=== PATIENT | female | born 1935 | race Caucasian/White ===

== ENCOUNTER → 2017-07-15 | Outpatient (CLI) | payer MEDICARE ==
[2016-05-06 01:35] VITALS: BP 141/71
[~2017-07-15] MED LIST: FLUO10CA7 PO; LEVO250T7 PO; OMEP10CA3 PO; ONDA4TAB10 PO; PRAV10TA2 PO; PROC5TAB PO; VALS40TA2 PO
--- NOTE | 2017-07-15 15:10 | KCIC ---
Examination: MRI of the left hip without contrast HISTORY: History of worsening left hip pain, recent fall COMPARISON: None available TECHNIQUE: Multiplanar, multisequence MR imaging of the left hip was performed without contrast FINDINGS: The left femoral head is within the acetabula. Examination limited due to motion artifact as patient could not lie still. There is no obvious acute fracture visualized The attachment of the hamstring tendons to the ischial tuberosity grossly appears intact. The attachment of the iliopsoas tendon to the lesser trochanter grossly appears intact. The attachment of the rectus femoris tendon to the anteroinferior iliac spine grossly appears intact. There is mild increased signal identified at the attachment of the gluteus minimus tendon to the greater trochanter likely tendinosis or mild partial tearing. Small amount of fluid identified overlying the gluteus minimus tendon could be trochanter bursal fluid. Moderate joint space loss identified in the left hip joint. The evaluation of the labrum is limited. Few uterine fibroids identified with the largest measuring 3.2 cm. IMPRESSION: 1. No acute osseous findings. 2. Mild increased T2 signal identified about the distal aspect of the gluteus minimus tendon at its attachment to the greater trochanter could be tendinosis or mild partial tearing. Small amount of fluid identified overlying the gluteus minimus tendon could be trochanteric bursitis. 3. Moderate degenerative changes left hip joint. Electronically signed by: Jono Muniz MD (07/15/2017 3:07 PM) [id number]
--- NOTE | 2017-07-15 15:14 | KCIC ---
MRI of the lumbar spine without contrast 07/15/2017 CLINICAL HISTORY: Low back pain with bilateral leg weakness. TECHNIQUE: Unenhanced T1-weighted and T2-weighted sagittal and axial and inversion recovery sagittal images of the lumbar spine were obtained. FINDINGS: No previous imaging studies are available for comparison. 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 Degenerative signal changes and loss of height are seen involving all of the disks of the lumbar spine. Degenerative signal changes are seen within the marrow surrounding these discs. The conus medullaris is normal in position and signal characteristics. At the L1-2 disc space there is a mild generalized disc bulge. Degenerative changes are seen involving the facet joints bilaterally. There is mild to moderate ligamentum flavum hypertrophy bilaterally. These findings when combined result in mild central spinal canal stenosis. No neural foraminal stenosis is seen. At the L2-3 disc space there is a mild generalized disc bulge. This is eccentric to the right. Degenerative changes are seen involving the facet joints bilaterally. There is moderate ligamentum flavum hypertrophy bilaterally. There is prominence of the posterior epidural fat. These findings when combined do not result in significant central spinal canal or neural foraminal stenosis. At the L3-4 disc space there is a moderate generalized disc bulge. Degenerative changes are seen involving the facet joints bilaterally. There is moderate ligamentum flavum hypertrophy bilaterally. These findings when combined result in moderate to severe right greater than left central spinal canal stenosis. Mild right neural foraminal stenosis is seen. The left neural foramen is patent. At the L4-5 disc space there is a moderate generalized disc bulge. Degenerative changes are seen involving the facet joints bilaterally. There is moderate ligamentum flavum hypertrophy bilaterally. These findings when combined result in severe central spinal canal stenosis. No neural foraminal stenosis is seen. At the L5-S1 disc space there is a mild generalized disc bulge. Degenerative changes are seen involving the facet joints bilaterally. There is mild ligamentum flavum hypertrophy bilaterally. These findings do not result in significant central spinal canal or neural foraminal stenosis. IMPRESSION: The changes of degenerative disc disease are seen involving the lumbar spine. These findings result in mild central spinal canal stenosis at L1-2, moderate to severe right greater than left central spinal canal stenosis at L3-4, and severe central spinal canal stenosis at L4-5. Mild right neural foraminal stenosis is seen at L3-4. Electronically signed by: Armando Joy MD (07/15/2017 3:11 PM) [facility]
== END | disposition home or self-care (01) ==
LOC: KCIC MRI 13:17
PROVIDERS: ATTEND Family Medicine
DX: M16.12 Unilateral primary osteoarthritis, left hip (principal); D25.9 Leiomyoma of uterus, unspecified; M48.06 Spinal stenosis, lumbar region; M51.36 Other intervertebral disc degeneration, lumbar region; R53.1 Weakness; W19.XXXD Unspecified fall, subsequent encounter
CPT/HCPCS: 72148; 73721

== ENCOUNTER 2017-08-02 14:05 | Emergency (ER) | payer MEDICARE ==
[~2017-08-02] VITALS: Ht 157.5 cm; Wt 68.0 kg
--- NOTE | 2017-08-02 14:14 | PHYS DOC ---
Past Medical History Past Medical History: Cancer, GERD, Hypertension Additional Past Medical Histor: NEUROPATHY Past Surgical History: No Surgical History, Knee Replacement Additional Past Surgical Histo: BILAT MASECTOMY IN JULY 2013 Alcohol Use: None Drug Use: None Adult General Chief Complaint Chief Complaint: MECHANICAL FALL [facility] HPI Patient is a 82 year old and female who presents with fall. She states she tripped over a box it was on the floor. She denies losing consciousness. She landed on her left side. She complains of left-sided neck pain, shoulder pain, rib pain and left hip pain. She denies any chest pain or abdominal pain. Review of Systems Review of Systems Constitutional: Denies fever or chills Eyes: Denies change in visual acuity, redness, or eye pain HENT: Denies nasal congestion or sore throat Respiratory: Denies cough or shortness of breath Cardiovascular: No additional information not addressed in HPI GI: Denies abdominal pain, nausea, vomiting, bloody stools or diarrhea : Denies dysuria or hematuria Musculoskeletal: Denies back pain, positive for left shoulder and hip pain Integument: Denies rash or skin lesions Neurologic: Denies headache, focal weakness or sensory changes Endocrine: Denies polyuria or polydipsia Allergies Allergies Allergies Coded Allergies Type Severity Reaction Last Updated Verified Sulfa (Sulfonamide Antibiotics) Allergy Intermediate 11/04/13 Yes quinine Allergy Intermediate 11/04/13 Yes Penicillins Allergy Unknown 11/04/13 Yes codeine Allergy Unknown 06/16/15 Yes lovastatin Allergy Unknown 06/16/15 Yes oxaprozin Allergy Unknown 06/16/15 Yes Physical Exam Physical Exam Constitutional: Well developed, well nourished, no acute distress, non-toxic appearance. HENT: Normocephalic, atraumatic, bilateral external ears normal, oropharynx moist, no oral exudates, nose normal. Eyes: PERRLA, EOMI, conjunctiva normal, no discharge. Neck: Normal range of motion, no midline tenderness or step-offs appreciated, mild tender palpation over the left paraspinal area, supple, no stridor. Cardiovascular:Heart rate regular rhythm, no murmur Lungs & Thorax: Bilateral breath sounds clear to auscultation, tender palpation over the left hemithorax without any obvious deformities or ecchymosis Abdomen: Bowel sounds normal, soft, no tenderness, no masses, no pulsatile masses. Skin: Warm, dry, no erythema, no rash. Back: No tenderness, no CVA tenderness. Extremities: Tender palpation over the left hip without any obvious deformity, tender palpation over the left shoulder without any deformity, range of motion intact, no cyanosis, no clubbing, no edema, dorsal pedis pulse left lower extremities 2+. Neurologic: Alert and oriented X 3, normal motor function, normal sensory function, no focal deficits noted. Psychologic: Affect normal, judgement normal, mood normal. Current Patient Data Vital Signs Vital Signs Date Time Temp Pulse Resp B/P (MAP) Pulse Ox O2 Delivery O2 Flow Rate FiO2 08/02/17 14:26 98.2 115 18 160/101 (120) 98 Room Air 98.2 EKG EKG [] Radiology/Procedures Radiology/Procedures [] Impressions: Cervical strain Left shoulder pain Left hip pain Left rib pain Course & Med Decision Making Course & Med Decision Making Pertinent Labs and Imaging studies reviewed. (See chart for details) CT cervical spine did not show any acute abnormality's, plain films of the left shoulder, left hip, left ribs did not show any fractures. Patient is agreeable being discharged home to continue her Tylenol 3's in addition to Aleve when necessary. Return precautions given. She is agreeable to the plan and being discharged in stable condition at this time. Dragon Disclaimer Dragon Disclaimer This electronic medical record was generated, in whole or in part, using a voice recognition dictation system. Departure Departure Impression: Primary Impression: Contusion of left shoulder Disposition: 01 HOME, SELF-CARE Condition: STABLE Referrals: GERARDO MARQUES MD (PCP) Patient Instructions: Fall Prevention and Home Safety Additional Instructions: You were seen today for your fall. The CAT scan of your neck, x-rays of your left hip left shoulder and left side of your ribs did not show anything broken. You really should start using a walker to help prevent you from falling again. You can take Aleve as directed on the bottle for the next 3-4 days for your pain. You can also use your Tylenol 3's as directed. Return ER for severe pain, troubles breathing, or other concerns. Problem Qualifiers Primary Impression: Contusion of left shoulder Encounter type: initial encounter Qualified Codes: S40.012A - Contusion of left shoulder, initial encounter JAVIER PADILLA MD Aug 02, 2017 14:14
[2017-08-02 14:26] VITALS: BP 160/101
--- NOTE | 2017-08-02 15:53 | RAD ---
Exam performed: CT scan of the cervical spine without contrast. Date of Service:08/02/17 Comparison:CT head and c spine from 05/06/16 . Clinical History: Neck pain, status post fall Technique: Helical acquisitions are obtained through the cervical spine. Sagittal and coronal reformatted images are obtained and reviewed. CT cervical spine findings: Normal sagittal alignment is preserved. The vertebral body heights are maintained. There is narrowing of C4/5, C5/6 and C6/7 intravertebral disc spaces with osteophytic spurring centered at these levels. Disc osteophyte level at C5/6 level causes mild central canal stenosis and mild to moderate right neural foramen narrowing. There is also narrowing of left C4 neural foramen secondary to osteophytic encroachment. Mild multilevel bilateral apophyseal joint hypertrophic changes are noted. There is no hannah or retrolisthesis. No prevertebral soft tissue swelling is identified. There are no fractures. No definite lymphadenopathy or masses are seen within the neck. Unchanged right thyroid nodule. Impression: No acute abnormality seen in the CT scan cervical spine. Spondylotic changes and multilevel disc degenerative changes are noted. PQRS Compliance Statement: One or more of the following individualized dose reduction techniques were utilized for this examination: 1. Automated exposure control 2. Adjustment of the mA and/or kV according to patient size 3. Use of iterative reconstruction technique
--- NOTE | 2017-08-02 16:29 | RAD ---
Exam performed: Left shoulder, left hip and ribs. History: Trauma, fall. Patient complaining of pain in the left ribs and shoulder. Date of service: 08/02/17. Comparison: None available 3 views left shoulder findings: Normal alignment of the glenohumeral and acromioclavicular joint is preserved. There is no acute fracture or dislocation. No soft tissue swelling or foreign body seen. Impression: 1. Negative exam. End impression. X-ray left hip Findings: There is narrowing of the left hip joint with periarticular sclerosis. The right hip joint appears preserved. Bilateral superior joints are maintained. Scoliosis and spondylotic changes involving the lower lumbar spine. Nonspecific bowel gas pattern. Impression: 1. 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 2. No acute abnormality seen. Left rib series findings: Single AP view chest and left rib series is obtained. Heart size and mediastinal silhouette is within limits of normal. The pulmonary vascularity is unremarkable. No definite rib fractures identified. There is no pleural effusion or pneumothorax Impression: 1. No definite fractures are identified.
== END 2017-08-02 16:59 | disposition home or self-care (01) ==
LOC: ER 14:05
DX: S40.019A Contusion of unspecified shoulder, initial encounter (principal); M54.2 Cervicalgia; R07.81 Pleurodynia; M25.552 Pain in left hip; K21.9 Gastro-esophageal reflux disease without esophagitis; I10 Essential (primary) hypertension; G62.9 Polyneuropathy, unspecified; Z88.0 Allergy status to penicillin; Z88.2 Allergy status to sulfonamides; Z88.5 Allergy status to narcotic agent; Z88.8 Allergy status to other drugs, medicaments and biological substances; W18.09XA Striking against other object with subsequent fall, initial encounter; Y93.89 Activity, other specified; Y92.89 Other specified places as the place of occurrence of the external cause; Y99.8 Other external cause status
CPT/HCPCS: 71101; 72125; 73030; 73502; 99284-25

== ENCOUNTER → 2018-01-20 | Outpatient (CLI) | payer MEDICARE | END | disposition home or self-care (01) | LOC: CT 09:58 | DX: K44.9 Diaphragmatic hernia without obstruction or gangrene (principal); R91.1 Solitary pulmonary nodule; R91.8 Other nonspecific abnormal finding of lung field; Z85.3 Personal history of malignant neoplasm of breast | CPT/HCPCS: 71250 ==

== ENCOUNTER → 2018-03-17 | Outpatient (CLI) | payer MEDICARE ==
[2018-03-17] MEDS: REGADENOSON 0.4 MG/5 ML DISP.SYRIN. IV (11:13)
== END | disposition home or self-care (01) ==
LOC: NM 12:41
DX: I25.10 Atherosclerotic heart disease of native coronary artery without angina pectoris (principal); R07.89 Other chest pain
CPT/HCPCS: 78452; 93017; 96374; 96375; 96376; A9500; J2785

== ENCOUNTER 2018-03-31 19:44 | Emergency (ER) | payer MEDICARE ==
[2018-03-31] MEDS: IV NORMAL SALINE 1000ML BAG 1,000 ML IV (21:17)
[2018-03-31] MEDS: diazePAM 5 MG TABLET PO (21:18)
[2018-03-31 21:21] LABS: ADD MAN DIFF? NO
[2018-03-31 21:22] LABS: BASO # 0.1 x10^3/uL (0.0-0.2); BASO % 1 % (0-3); EOS # 0.2 x10^3/uL (0.0-0.7); EOS % 3 % (0-3); HEMOGLOBIN 9.8 g/dL (12.0-15.5); LYMPH # 1.5 x10^3/uL (1.0-4.8); LYMPH % 21 % (24-48); MEAN CORPUSCULAR HEMOGLOBIN 33 pg (25-35); MEAN CORPUSCULAR HGB CONC 34 g/dL (31-37); MEAN CORPUSCULAR VOLUME 98 fL (79-100); MONO # 0.8 x10^3/uL (0.0-1.1); MONO % 12 % (0-9); NEUT # 4.6 x10^3uL (1.8-7.7); NEUT % 63 % (31-73); PLATELET COUNT 279 x10^3/uL (140-400); RED BLOOD COUNT 2.95 x10^6/uL (3.50-5.40); RED CELL DISTRIBUTION WIDTH 13.4 % (11.5-14.5); WHITE BLOOD COUNT 7.2 x10^3/uL (4.0-11.0)
[2018-03-31 21:32] LABS: ANION GAP 10 (6-14); BLOOD UREA NITROGEN 21 mg/dL (7-20); BUN/CREATININE RATIO 15 (6-20); CALCIUM 8.6 mg/dL (8.5-10.1); CARBON DIOXIDE 27 mmol/L (21-32); CHLORIDE 106 mmol/L (98-107); CREATININE 1.4 mg/dL (0.6-1.0); GLUCOSE 92 mg/dL (70-99); POTASSIUM 3.5 mmol/L (3.5-5.1); SODIUM 143 mmol/L (136-145)
[2018-03-31 21:44] LABS: ALBUMIN 3.3 g/dL (3.4-5.0); ALBUMIN/GLOBULIN RATIO 0.9 (1.0-1.7); ALK PHOS 56 U/L (46-116); ALT (SGPT) 16 U/L (14-59); AST (SGOT) 18 U/L (15-37); TOTAL BILIRUBIN 0.2 mg/dL (0.2-1.0); TOTAL PROTEIN 7.1 g/dL (6.4-8.2)
[2018-03-31] MEDS ORDERED: MECLIZINE HCL 12.5 MG TABLET. (22:37)
[2018-03-31] MEDS: MECLIZINE HCL 12.5 MG TABLET. PO (22:40)
== END 2018-03-31 22:47 | disposition home or self-care (01) ==
LOC: ER 19:44
DX: R42 Dizziness and giddiness (principal); R11.2 Nausea with vomiting, unspecified; K21.9 Gastro-esophageal reflux disease without esophagitis; I10 Essential (primary) hypertension; Z88.2 Allergy status to sulfonamides; Z88.0 Allergy status to penicillin; Z88.5 Allergy status to narcotic agent; Z88.8 Allergy status to other drugs, medicaments and biological substances
CPT/HCPCS: 36415; 80053; 85025; 93005; 96360; 99285-25; J7030; J8597

== ENCOUNTER 2018-11-06 15:23 | Emergency (ER) | payer MEDICARE ==
[~2018-11-06] VITALS: Ht 157.5 cm; Wt 62.6 kg
[~2018-11-06 15:23] MED LIST changes: +ACET1TAB33 PO; +ALEN70TA6 PO; +ASPI81TA59 PO; +ATOR20TA58 PO; +CALC-77 PO; +FERR159T3 PO; +FERR324T2 PO; +LATA2.5D3 EACHEYE; +LISI-130 PO; +LISI10TA2 PO; +MECL25TA3 PO; +METO1TAB31 PO; -OMEP10CA3 PO; +OMEP10CA4 PO; +PANT20TA2 PO; +POTA20TA4 PO; -PROC5TAB PO; +PROC5TAB2 PO; +TETR15DR3 OP; +VENL37.56 PO; +VENL75CA6 PO; +[UNRECOGNIZED DRUG - OTHER]
[2018-11-06] MEDS ORDERED: IV NORMAL SALINE 1000ML BAG 1,000 ML IV ONE (16:00)
--- NOTE | 2018-11-06 16:21 | PHYS DOC ---
Past Medical History Past Medical History: Cancer, GERD, Hypertension Additional Past Medical Histor: NEUROPATHY Past Surgical History: Hysterectomy, Knee Replacement Additional Past Surgical Histo: BILAT MASECTOMY IN JULY 2013 Alcohol Use: None Drug Use: None Adult General Chief Complaint Chief Complaint: LOWER BACK PAIN OR INJURY [facility] HPI Patient is a 83 year old female who presents with back in October and has since been sent to rehabilitation facility. The rehabilitation facility today she began to have new onset of the back pain and tingling in her hands. Patient states that she usually always has tingling of her hands. Patient states she is in the same amount of pain that she is always been and this is nothing new. She denies shortness of breath or chest pain. Patient is a poor historian and is unsure of when she had pain medication last. She rates her pain a 7 out of 10. Review of Systems Review of Systems Constitutional: Denies fever or chills [] Eyes: Denies change in visual acuity, redness, or eye pain [] HENT: Denies nasal congestion or sore throat [] Respiratory: Denies cough or shortness of breath [] Cardiovascular: No additional information not addressed in HPI [] GI: Denies abdominal pain, nausea, vomiting, bloody stools or diarrhea [] : Denies dysuria or hematuria [] Musculoskeletal: Chronic back pain or joint pain, Chronic tingling in hands [] Integument: Denies rash or skin lesions [] Neurologic: Denies headache, focal weakness or sensory changes [] All other systems were reviewed and found to be within normal limits, except as documented in this note. Current Medications Current Medications Current Medications Medications (Trade) Dose Ordered Sig/Mine Start Time Stop Time Status Last Admin Dose Admin Sodium Chloride 1,000 ml @ 1,000 mls/hr 1X ONCE 11/06/18 16:00 11/06/18 16:59 Tramadol HCl (Ultram) 50 mg 1X ONCE 11/06/18 16:30 11/06/18 16:31 DC Allergies Allergies Allergies Coded Allergies Type Severity Reaction Last Updated Verified Penicillins Allergy Intermediate 05/02/18 Yes Sulfa (Sulfonamide Antibiotics) Allergy Intermediate 11/04/13 Yes codeine Allergy Intermediate 05/02/18 Yes lidocaine Allergy Intermediate 05/02/18 Yes lovastatin Allergy Intermediate 05/02/18 Yes oxaprozin Allergy Intermediate 7/10/18 Yes quinine Allergy Intermediate 11/04/13 Yes Physical Exam Physical Exam Constitutional: Well developed, well nourished, no acute distress, non-toxic appearance. [] HENT: Normocephalic, atraumatic, bilateral external ears normal, oropharynx moist, no oral exudates, nose normal. [] Eyes: PERRLA, EOMI, conjunctiva normal, no discharge. [] Neck: Normal range of motion, no tenderness, supple, no stridor. [] Cardiovascular:Heart rate regular rhythm, no murmur [] Lungs & Thorax: Bilateral breath sounds clear to auscultation [] Abdomen: Bowel sounds normal, soft, no tenderness, no masses, no pulsatile masses. [] Skin: Warm, dry, no erythema, no rash. [] Back: cervical and thoracic tenderness, no CVA tenderness. [] Extremities: No tenderness, no cyanosis, no clubbing, ROM intact, no edema. [] Neurologic: Alert and oriented X 3, normal motor function, normal sensory function, no focal deficits noted. [] Psychologic: Affect normal, judgement normal, mood normal. [] Current Patient Data Vital Signs Vital Signs Date Time Temp Pulse Resp B/P (MAP) Pulse Ox O2 Delivery O2 Flow Rate FiO2 11/06/18 15:38 98.7 107 18 139/63 (88) 98 Room Air 98.7 EKG EKG [address] MATHEWS[] Interpretation Time: SINUS RHYTHM AND NO STEMI Radiology/Procedures Radiology/Procedures [] Course & Med Decision Making Course & Med Decision Making Patient is a 83 year old female who presents with back in October and has since been sent to rehabilitation facility. The rehabilitation facility today she began to have new onset of the back pain and tingling in her hands. Patient states that she usually always has tingling of her hands. Patient states she is in the same amount of pain that she is always been and this is nothing new. She denies shortness of breath or chest pain. Patient is a poor historian and is unsure of when she had pain medication last. She rates her pain a 7 out of 10. Alert and oriented. Lungs are clear to auscultation up her lobes but diminished in lower lobes. Abdomen is soft and nontender. Patient states her legs are numb but that they are chronically numb. There is no bilateral edema in her legs. She is no calf tenderness with palpation. Pedal pulses are present bilaterally. There are no deformities to her legs or knees or joints. Patient has equal strength in both legs. Patient is unable to lift her legs due to causing her pain in her back and hips. PERRLA. I have spoken to Dr. Reid and he states this patient was to be a direct admit. He states that he had spoken to machinery repair maintenance supervisor Julianne here at [place] and she got off the phone with him very quickly gave him no information. He states that she did say that the patient had a bed. Dr. Reid states that the nurses will need to call him when the patient gets upstairs for inpatient orders. Dragon Disclaimer Dragon Disclaimer This electronic medical record was generated, in whole or in part, using a voice recognition dictation system. Departure Departure Impression: Primary Impression: Encounter for medical screening examination Disposition: 01 HOME, SELF-CARE Condition: STABLE Referrals: NEREIDA REID MD (PCP) Additional Instructions: DIRECT ADMIT DEMARCUS DOYLE APRN Nov 06, 2018 16:21
[2018-11-06] MEDS ORDERED: traMADol 50 MG TABLET PO ONE (16:30)
--- NOTE | 2018-11-06 16:49 | EKG ---
[facility] [address] [place] [address] Test Date: 2018-11-06 Test Time: 16:30:51 Pat Name: BEL CASTELLANO Department: Room: Gender: F Senior Clinical Research Associate: : 1935 Requested By: DEMARCUS DOYLE Order Number: [id number] Reading MD: Simon Tompkins MD Measurements Intervals [place] Rate: 97 P: 18 MN: 156 QRS: -18 QRSD: 72 T: 26 QT: 340 QTc: 436 Interpretive Statements SINUS RHYTHM CONSIDER LVH Electronically Signed On 11-07-2018 12:30:51 RAIL SPECIALIST by Simon Tompkins MD
[2018-11-06 17:04] LABS: BASO # 0.1 x10^3/uL (0.0-0.2); BASO % 1 % (0-3); EOS # 0.2 x10^3/uL (0.0-0.7); EOS % 3 % (0-3); HEMOGLOBIN 9.5 g/dL (12.0-15.5); LYMPH # 1.7 x10^3/uL (1.0-4.8); LYMPH % 23 % (24-48); MEAN CORPUSCULAR HEMOGLOBIN 32 pg (25-35); MEAN CORPUSCULAR HGB CONC 34 g/dL (31-37); MEAN CORPUSCULAR VOLUME 96 fL (79-100); MONO # 0.7 x10^3/uL (0.0-1.1); MONO % 10 % (0-9); NEUT # 4.6 x10^3uL (1.8-7.7); NEUT % 63 % (31-73); PLATELET COUNT 244 x10^3/uL (140-400); RED BLOOD COUNT 2.93 x10^6/uL (3.50-5.40); RED CELL DISTRIBUTION WIDTH 13.9 % (11.5-14.5); WHITE BLOOD COUNT 7.3 x10^3/uL (4.0-11.0)
[2018-11-06 17:14] LABS: PROTHROMBIN TIME PATIENT 13.6 SEC (11.7-14.0)
[2018-11-06 17:19] LABS: CALCIUM 8.9 mg/dL (8.5-10.1); CREATININE 1.4 mg/dL (0.6-1.0); GFR 35.9; POTASSIUM 4.5 mmol/L (3.5-5.1)
[2018-11-06 17:24] LABS: ALBUMIN 2.8 g/dL (3.4-5.0); ALBUMIN/GLOBULIN RATIO 0.7 (1.0-1.7); TOTAL BILIRUBIN 0.1 mg/dL (0.2-1.0); TOTAL PROTEIN 7.1 g/dL (6.4-8.2)
[2018-11-06 17:28] VITALS: BP 136/75
[2018-11-11] MEDS ORDERED: OXYC5CAP PO (11:55)
== END 2018-11-06 17:43 | disposition home or self-care (01) ==
LOC: ER 15:23
DX: Z00.8 Encounter for other general examination (principal); M54.5 Low back pain; R20.2 Paresthesia of skin; I10 Essential (primary) hypertension; K21.9 Gastro-esophageal reflux disease without esophagitis; Z90.710 Acquired absence of both cervix and uterus; Z96.659 Presence of unspecified artificial knee joint; Z88.0 Allergy status to penicillin; Z88.2 Allergy status to sulfonamides; Z88.4 Allergy status to anesthetic agent; Z88.5 Allergy status to narcotic agent; Z88.8 Allergy status to other drugs, medicaments and biological substances
CPT/HCPCS: 36415; 80053; 84484; 85025; 85610; 93005; 99284-25

== ENCOUNTER 2018-12-21 08:41 | Inpatient (IN) | payer MEDICARE ==
[~2018-12-21] VITALS: Ht 157.5 cm; Wt 66.7 kg
[~2018-12-21 08:41] MED LIST changes: +OXYC5CAP PO
[2018-12-21 10:00] VITALS: BP 140/71
--- NOTE | 2018-12-21 11:00 | NUR ---
Pt arrived on unit from [place] by ems at 1000. VSS. Pt had her right ankle fx reduced bf coming over. A &Ox4, but forgetful. Pt oriented to room, call light system, and pain scale. Bed locked and in lowest position. Will continue to monitor.
[2018-12-21] MEDS ORDERED: ACETAMINOPHEN 325 MG TABLET. PO PRN (11:45)
[2018-12-21] MEDS ORDERED: PROCHLORPERAZINE 10 MG/2 ML VIAL. IV PRN (11:45)
[2018-12-21] MEDS ORDERED: PROCHLORPERAZINE 25 MG SUPP.RECT. PR PRN (11:45)
[2018-12-21] MEDS ORDERED: CALCIUM CARBONATE 500 MG TAB.CHEW PO PRN (11:45)
[2018-12-21] MEDS ORDERED: ONDANSETRON PF 4 MG/2 ML VIAL. IV PRN (11:45)
[2018-12-21] MEDS: IV 1/2 NORMAL SALINE 1,000 ML IV SCH (12:15)
[2018-12-21 12:27] LABS: BASO % 0 % (0-3); EOS # 0.2 x10^3/uL (0.0-0.7); EOS % 2 % (0-3); HEMATOCRIT 25.2 % (36.0-47.0); HEMOGLOBIN 8.1 g/dL (12.0-15.5); LYMPH # 1.5 x10^3/uL (1.0-4.8); LYMPH % 16 % (24-48); MEAN CORPUSCULAR HEMOGLOBIN 32 pg (25-35); MEAN CORPUSCULAR HGB CONC 32 g/dL (31-37); MEAN CORPUSCULAR VOLUME 98 fL (79-100); MONO # 0.6 x10^3/uL (0.0-1.1); MONO % 7 % (0-9); NEUT # 6.8 x10^3uL (1.8-7.7); NEUT % 75 % (31-73); PLATELET COUNT 218 x10^3/uL (140-400); RED BLOOD COUNT 2.57 x10^6/uL (3.50-5.40); WHITE BLOOD COUNT 9.1 x10^3/uL (4.0-11.0)
[2018-12-21 12:48] LABS: PROTHROMBIN TIME PATIENT 14.2 SEC (11.7-14.0)
[2018-12-21 12:49] LABS: CALCIUM 8.4 mg/dL (8.5-10.1); CREATININE 1.9 mg/dL (0.6-1.0); GFR 25.2; POTASSIUM 4.6 mmol/L (3.5-5.1)
--- NOTE | 2018-12-21 13:12 | PDOC1 ---
History and Physical Date of Admission Date of Admission DATE: 12/21/18 TIME: 13:09 Identification/Chief Complaint Chief Complaint Transfer from [facility] for ankle fracture bimalleolar Source Source: Caregiver, Chart review, Patient History of Present Illness History of Present Illness 83-year-old female lives at home, mechanical fall today traumatic, closed. [facility], bimalleolar ankle fracture right- transfer here. Seen by orthopedics, plan for OR tomorrow Past medical history hypertension and heart murmur Past surgical history knee replacement Allergies are multiple and listed above No smoking no alcohol no street drugs Past Medical History Cardiovascular: CAD, HTN, Hyperlipidemia Pulmonary: Other CENTRAL NERVOUS SYSTEM: Dementia, Periperal neuropathy GI: GERD Heme/Onc: Anemia NOS Hepatobiliary: No pertinent hx Psych: Anxiety, Depression Musculoskeletal: Osteoarthritis Rheumatologic: No pertinent hx Infectious disease: No pertinent hx Renal/: Chronic renal insuff Endocrine: No pertinent hx Past Surgical History Past Surgical History: Appendectomy, Total knee replacement, Hysterectomy, Other Family History Family History: Alzheimer's Disease, Cancer, Diabetes, Hypertension Social History Smoke: No ALCOHOL: none Drugs: None Current Medications Current Medications Current Medications Sodium Chloride 1,000 ml @ 75 mls/hr [id number] IV Last administered on at 12:15; Start 12/21/18 at 11:41 Ondansetron HCl (Zofran) 4 mg PRN Q6HRS PRN IV NAUSEA/VOMITING 1ST CHOICE; Start 12/21/18 at 11:45 Prochlorperazine Edisylate (Compazine) 10 mg PRN Q6HRS PRN IV NAUSEA/VOMITING 2ND CHOICE; Start 12/21/18 at 11:45 Prochlorperazine (Compazine) 25 mg PRN Q12HR PRN GA NAUSEA/VOMITING; Start at 11:45 Calcium Carbonate/ Glycine (Tums) 500 mg PRN Q3HRS PRN PO UPSET STOMACH; Start 12/21/18 at 11:45 Acetaminophen (Tylenol) 650 mg PRN Q6HRS PRN PO Headaches, Temp > 101.5F; Start 12/21/18 at 11:45 Docusate Sodium (Colace) 100 mg BID PO ; Start 12/21/18 at 21:00 Heparin Sodium (Porcine) (Heparin Sodium) 5,000 unit Q8HRS SQ ; Start 12/21/18 at 14:00 Fentanyl Citrate (Fentanyl 2ml Vial) 50 mcg PRN Q2HR PRN IV PAIN; Start at 11:45 Tramadol HCl (Ultram) 50 mg PRN Q6HRS PRN PO PAIN; Start 12/21/18 at 11:45 Active Scripts Active Oxycodone Hcl 5 Mg Capsule 5 Mg PO Q4H PRN 30 Days Lisinopril 40 Mg Tablet 20 Mg PO DAILY 30 Days Meclizine Hcl 25 Mg Tablet 1 Tab PO Q8HRS PRN Reported Venlafaxine Hcl 37.5 Mg Tablet 1 Tab PO BID Atorvastatin Calcium 20 Mg Tablet 20 Mg PO HS Children's Aspirin (Aspirin) 81 Mg Tab.chew 81 Mg PO DAILY Latanoprost 2.5 Ml Drops 1 Drop EACHEYE QHS Protonix (Pantoprazole Sodium) 20 Mg Tablet.dr 2 Tab PO DAILY Ferrous Gluconate 324 Mg Tablet 324 Mg PO DAILY Acetaminophen-Cod #3 Tablet (Acetaminophen/Codeine Phosphate) 1 Each Tablet 1 Tab PO PRN TID PRN Eye Drops (Tetrahydrozoline Hcl) 15 Ml Drops 15 Ml OP PRN Calcium + D3 Er Tablet (Calcium Carb & Cit/Vitamin D3) 1 Each Tablet.er 1 Each PO Alendronate Sodium 70 Mg Tablet 1 Tab PO WEEKLY Fluoxetine Hcl 10 Mg Capsule 10 Mg PO Allergies Allergies: Coded Allergies: Penicillins (Verified Allergy, Intermediate, 05/02/18) Sulfa (Sulfonamide Antibiotics) (Verified Allergy, Intermediate, 11/04/13) codeine (Verified Allergy, Intermediate, 11/09/18) Takes tylenol #3 at home lidocaine (Verified Allergy, Intermediate, 05/02/18) lovastatin (Verified Allergy, Intermediate, 05/02/18) oxaprozin (Verified Allergy, Intermediate, 05/02/18) quinine (Verified Allergy, Intermediate, 11/04/13) ROS Review of System Right ankle hurts otherwise rest of ROS 14 point negative Physical Exam General: Alert, Oriented X3, Cooperative, No acute distress HEENT: Atraumatic, PERRLA, EOMI Lungs: Clear to auscultation, Normal air movement Heart: S1S2, RRR, no thrills, no rubs, no gallops, no murmurs Cardiovascular: S1, S2 Abdomen: Normal bowel sounds, Soft, No tenderness, No hepatosplenomegaly, No masses Rectal Exam: not examined PELVIC: Nml ext genitalia Extremities: Other (right ankle cast) Skin: No rashes, No breakdown, No significant lesion Neuro: Normal gait, Normal speech, Strength at 5/5 X4 ext, Normal tone, Sensation intact, Cranial nerves 3-12 NL, Reflexes 2+ Psych/Mental Status: Mental status NL, Mood NL Labs Labs Laboratory Tests Test 12/21/18 12:10 White Blood Count 9.1 x10^3/uL (4.0-11.0) Red Blood Count 2.57 x10^6/uL (3.50-5.40) Hemoglobin 8.1 g/dL (12.0-15.5) Hematocrit 25.2 % (36.0-47.0) Mean Corpuscular Volume 98 fL (79-100) Mean Corpuscular Hemoglobin 32 pg (25-35) Mean Corpuscular Hemoglobin Concent 32 g/dL (31-37) Red Cell Distribution Width 14.0 % (11.5-14.5) Platelet Count 218 x10^3/uL (140-400) Neutrophils (%) (Auto) 75 % (31-73) Lymphocytes (%) (Auto) 16 % (24-48) Monocytes (%) (Auto) 7 % (0-9) Eosinophils (%) (Auto) 2 % (0-3) Basophils (%) (Auto) 0 % (0-3) Neutrophils # (Auto) 6.8 x10^3uL (1.8-7.7) Lymphocytes # (Auto) 1.5 x10^3/uL (1.0-4.8) Monocytes # (Auto) 0.6 x10^3/uL (0.0-1.1) Eosinophils # (Auto) 0.2 x10^3/uL (0.0-0.7) Basophils # (Auto) 0.0 x10^3/uL (0.0-0.2) Prothrombin Time 14.2 SEC (11.7-14.0) Prothromb Time International Ratio 1.1 (0.8-1.1) Sodium Level 141 mmol/L (136-145) Potassium Level 4.6 mmol/L (3.5-5.1) Chloride Level 107 mmol/L (98-107) Carbon Dioxide Level 24 mmol/L (21-32) Anion Gap 10 (6-14) Blood Urea Nitrogen 31 mg/dL (7-20) Creatinine 1.9 mg/dL (0.6-1.0) Estimated GFR (Cockcroft-Gault) 25.2 Glucose Level 104 mg/dL (70-99) Calcium Level 8.4 mg/dL (8.5-10.1) Laboratory Tests Test 12/21/18 12:10 White Blood Count 9.1 x10^3/uL (4.0-11.0) Red Blood Count 2.57 x10^6/uL (3.50-5.40) Hemoglobin 8.1 g/dL (12.0-15.5) Hematocrit 25.2 % (36.0-47.0) Mean Corpuscular Volume 98 fL (79-100) Mean Corpuscular Hemoglobin 32 pg (25-35) Mean Corpuscular Hemoglobin Concent 32 g/dL (31-37) Red Cell Distribution Width 14.0 % (11.5-14.5) Platelet Count 218 x10^3/uL (140-400) Neutrophils (%) (Auto) 75 % (31-73) Lymphocytes (%) (Auto) 16 % (24-48) Monocytes (%) (Auto) 7 % (0-9) Eosinophils (%) (Auto) 2 % (0-3) Basophils (%) (Auto) 0 % (0-3) Neutrophils # (Auto) 6.8 x10^3uL (1.8-7.7) Lymphocytes # (Auto) 1.5 x10^3/uL (1.0-4.8) Monocytes # (Auto) 0.6 x10^3/uL (0.0-1.1) Eosinophils # (Auto) 0.2 x10^3/uL (0.0-0.7) Basophils # (Auto) 0.0 x10^3/uL (0.0-0.2) Prothrombin Time 14.2 SEC (11.7-14.0) Prothromb Time International Ratio 1.1 (0.8-1.1) Sodium Level 141 mmol/L (136-145) Potassium Level 4.6 mmol/L (3.5-5.1) Chloride Level 107 mmol/L (98-107) Carbon Dioxide Level 24 mmol/L (21-32) Anion Gap 10 (6-14) Blood Urea Nitrogen 31 mg/dL (7-20) Creatinine 1.9 mg/dL (0.6-1.0) Estimated GFR (Cockcroft-Gault) 25.2 Glucose Level 104 mg/dL (70-99) Calcium Level 8.4 mg/dL (8.5-10.1) VTE Prophylaxis Ordered VTE Prophylaxis Devices: Yes VTE Pharmacological Prophylaxi: Yes Assessment/Plan Assessment/Plan Bimalleolar fracture right, traumatic, closed Mechanical fall Hypertension CAD, heart murmur all chronic stable Plan: nothing by mouth post midnight for OR tomorrow IVELISSE ISLAS MD Dec 21, 2018 13:12
[2018-12-21] MEDS ORDERED: MECLIZINE HCL 12.5 MG TABLET. PO PRN (13:30)
[2018-12-21] MEDS: oxyCODONE IR 5 MG TABLET PO PRN (13:51)
[2018-12-21] MEDS: HEPARIN for SUB-Q USE 5,000 UNIT/ML VIAL. SQ SCH ×3 (14:00→22:48)
[2018-12-21 15:28] VITALS: BP 103/51
[2018-12-21] MEDS: PANTOPRAZOLE 40 MG TABLET.DR. PO SCH (16:29)
[2018-12-21] MEDS: VENLAFAXINE XR 37.5 MG CAP.ER.24H. PO SCH ×2 (16:29→22:14)
[2018-12-21] MEDS: ACETAMINOPHEN/CODEINE 300/30MG TABLET. PO PRN (16:30)
[2018-12-21] MEDS: traMADol 50 MG TABLET PO PRN (16:30)
[2018-12-21] MEDS: fentaNYL PF VIAL 100 MCG/2 ML VIAL IV PRN (18:09)
[2018-12-21] MEDS ORDERED: PRAV20TA2 PO (19:25)
[2018-12-21 19:30] VITALS: BP 119/43
[2018-12-21] MEDS: DOCUSATE SODIUM 100 MG CAPSULE. PO SCH (22:14)
[2018-12-21] MEDS: LATANOPROST 0.005% OPHTH SOLUTION 2.5ML BOTTLE. OU SCH (22:14)
[2018-12-21] MEDS: ATORVASTATIN CALCIUM 20 MG TABLET PO SCH (22:14)
[2018-12-21 23:19] VITALS: BP 118/54
[2018-12-22] VITALS (13 sets, daily range): BP systolic 89–160; BP diastolic 32–79
[2018-12-22] MEDS: fentaNYL PF VIAL 100 MCG/2 ML VIAL IV PRN ×3 (01:59→11:59)
[2018-12-22] MEDS: HEPARIN for SUB-Q USE 5,000 UNIT/ML VIAL. SQ SCH ×3 (06:00→20:07)
[2018-12-22] MEDS ORDERED: IV RINGERS,LACTATED 1000ML 1,000 ML IV SCH (07:00)
[2018-12-22] MEDS ORDERED: MORPHINE SULFATE 2 MG/ML VIAL. IV PRN (07:00)
[2018-12-22] MEDS ORDERED: HYDROmorphone 2 MG/ML VIAL IV PRN (07:00)
[2018-12-22] MEDS ORDERED: ONDANSETRON PF 4 MG/2 ML VIAL. IV PRN (07:00)
[2018-12-22] MEDS ORDERED: PROCHLORPERAZINE 10 MG/2 ML VIAL. IV PRN (07:00)
[2018-12-22] MEDS ORDERED: fentaNYL PF VIAL 100 MCG/2 ML VIAL IV PRN ×2 (07:00)
[2018-12-22] MEDS: PANTOPRAZOLE 40 MG TABLET.DR. PO SCH (07:30)
[2018-12-22] MEDS: FERROUS SULFATE 325 MG TABLET. PO SCH (08:00)
[2018-12-22] MEDS: IV 1/2 NORMAL SALINE 1,000 ML IV SCH ×2 (08:43→14:21)
[2018-12-22] MEDS: DOCUSATE SODIUM 100 MG CAPSULE. PO SCH ×2 (08:58→20:01)
[2018-12-22] MEDS: VENLAFAXINE XR 37.5 MG CAP.ER.24H. PO SCH ×2 (08:58→20:01)
[2018-12-22] MEDS: FLUoxetine HCL 10 MG CAPSULE PO SCH (08:59)
[2018-12-22] MEDS ORDERED: LISINOPRIL 20 MG TABLET PO SCH (09:00)
--- NOTE | 2018-12-22 10:10 | NUR ---
SW following for discharge planning. Discussed with RN, pt is from home with son, Eric. Pt having surgery today. SW will continue to follow.
[2018-12-22] MEDS ORDERED: ONDANSETRON PF 4 MG/2 ML VIAL. ONE (11:20)
[2018-12-22] MEDS ORDERED: LIDOCAINE 2% PF 5 ML VIAL. ONE (11:20)
[2018-12-22] MEDS ORDERED: fentaNYL PF VIAL 100 MCG/2 ML VIAL ONE ×2 (11:20→13:59)
[2018-12-22] MEDS ORDERED: PROPOFOL 20 ML IV ONE (11:20)
[2018-12-22] MEDS ORDERED: DEXAMETHASONE SOD PHOS 20 MG/5 ML VIAL. ONE (11:20)
[2018-12-22] MEDS ORDERED: CLINDAMYCIN 900MG PREMIX 50 ML IV ONE ×2 (12:37→13:15)
[2018-12-22] MEDS ORDERED: BUPIVACAINE MPF 0.5% 30 ML VIAL. ONE (13:54)
[2018-12-22] MEDS ORDERED: SEVOFLURANE 61 TO 120 MINUTES. IH ONE (14:03)
--- NOTE | 2018-12-22 15:55 | PDOC ---
PROGRESS NOTES Chief Complaint Chief Complaint Bimalleolar fracture right, traumatic, closed Mechanical fall Hypertension CAD, heart murmur all chronic stable History of Present Illness History of Present Illness surg today Vitals Vitals Vital Signs Date Time Temp Pulse Resp B/P (MAP) Pulse Ox O2 Delivery O2 Flow Rate FiO2 12/22/18 15:00 97.8 98 16 164/72 96 Nasal Cannula 2 97.8 Physical Exam General: No acute distress Skin: No rashes, No breakdown Comment Review of Relevant I have reviewed the following items ingrid (where applicable) has been applied. Labs Laboratory Tests Test 12/21/18 12:10 White Blood Count 9.1 x10^3/uL (4.0-11.0) Red Blood Count 2.57 x10^6/uL (3.50-5.40) Hemoglobin 8.1 g/dL (12.0-15.5) Hematocrit 25.2 % (36.0-47.0) Mean Corpuscular Volume 98 fL (79-100) Mean Corpuscular Hemoglobin 32 pg (25-35) Mean Corpuscular Hemoglobin Concent 32 g/dL (31-37) Red Cell Distribution Width 14.0 % (11.5-14.5) Platelet Count 218 x10^3/uL (140-400) Neutrophils (%) (Auto) 75 % (31-73) Lymphocytes (%) (Auto) 16 % (24-48) Monocytes (%) (Auto) 7 % (0-9) Eosinophils (%) (Auto) 2 % (0-3) Basophils (%) (Auto) 0 % (0-3) Neutrophils # (Auto) 6.8 x10^3uL (1.8-7.7) Lymphocytes # (Auto) 1.5 x10^3/uL (1.0-4.8) Monocytes # (Auto) 0.6 x10^3/uL (0.0-1.1) Eosinophils # (Auto) 0.2 x10^3/uL (0.0-0.7) Basophils # (Auto) 0.0 x10^3/uL (0.0-0.2) Prothrombin Time 14.2 SEC (11.7-14.0) Prothromb Time International Ratio 1.1 (0.8-1.1) Sodium Level 141 mmol/L (136-145) Potassium Level 4.6 mmol/L (3.5-5.1) Chloride Level 107 mmol/L (98-107) Carbon Dioxide Level 24 mmol/L (21-32) Anion Gap 10 (6-14) Blood Urea Nitrogen 31 mg/dL (7-20) Creatinine 1.9 mg/dL (0.6-1.0) Estimated GFR (Cockcroft-Gault) 25.2 Glucose Level 104 mg/dL (70-99) Calcium Level 8.4 mg/dL (8.5-10.1) Medications Current Medications Sodium Chloride 1,000 ml @ 75 mls/hr [id number] IV Last administered on 12/22/18 08:43; Start 12/21/18 at 11:41 Ondansetron HCl (Zofran) 4 mg PRN Q6HRS PRN IV NAUSEA/VOMITING 1ST CHOICE; Start 12/21/18 at 11:45 Prochlorperazine Edisylate (Compazine) 10 mg PRN Q6HRS PRN IV NAUSEA/VOMITING 2ND CHOICE; Start 12/21/18 at 11:45 Prochlorperazine (Compazine) 25 mg PRN Q12HR PRN NC NAUSEA/VOMITING; Start at 11:45 Calcium Carbonate/ Glycine (Tums) 500 mg PRN Q3HRS PRN PO UPSET STOMACH; Start 12/21/18 at 11:45 Acetaminophen (Tylenol) 650 mg PRN Q6HRS PRN PO Headaches, Temp > 101.5F Last administered on 12/21/18 22:13; Start 12/21/18 at 11:45 Docusate Sodium (Colace) 100 mg BID PO Last administered on 12/21/18at 22:14; Start 12/21/18 at 21:00 Heparin Sodium (Porcine) (Heparin Sodium) 5,000 unit Q8HRS SQ Last administered on 12/21/18 22:48; Start 12/21/18 at 14:00 Fentanyl Citrate (Fentanyl 2ml Vial) 50 mcg PRN Q2HR PRN IV PAIN Last administered on 12/22/18 11:59; Start 12/21/18 at 11:45 Tramadol HCl (Ultram) 50 mg PRN Q6HRS PRN PO MODERATE PAIN Last administered on 2/28/19at 16:30; Start 12/21/18 at 11:45 Acetaminophen/ Codeine Phosphate (Tylenol #3) 1 tab PRN TID PRN PO MILD PAIN Last administered on 12/21/18at 16:30; Start 12/21/18 at 13:15 Atorvastatin Calcium (Lipitor) 20 mg HS PO Last administered on 12/21/18at 22:14 ; Start 12/21/18 at 21:00 Fluoxetine HCl (PROzac) 10 mg DAILY PO ; Start 12/22/18 at 09:00 Lisinopril (Prinivil) 20 mg DAILY PO ; Start 12/22/18 at 09:00 Non-Formulary Medication (Alendronate Sodium ) 1 tab WEEKLY PO ; Start 12/28/18 at 09:00; Status UNV Ferrous Sulfate (Feosol) 325 mg DAILYWBKFT PO ; Start 12/22/18 at 08:00 Latanoprost (Xalatan) 1 drop QHS OU Last administered on 12/21/18at 22:14; Start 12/21/18 at 21:00 Meclizine HCl (Antivert) 25 mg PRN Q8HRS PRN PO DIZZINESS; Start 12/21/18 at 13 :30 Oxycodone HCl (Roxicodone) 5 mg PRN Q4HRS PRN PO SEVERE PAIN Last administered on 12/21/18at 13:51; Start 12/21/18 at 13:30 Pantoprazole Sodium (Protonix) 40 mg DAILYAC PO Last administered on 12/21/18at 16:29; Start 12/21/18 at 14:00 Venlafaxine HCl (Effexor Xr) 37.5 mg BID PO Last administered on 12/21/18at 22: 14; Start 12/21/18 at 14:00 Ondansetron HCl (Zofran) 4 mg PRN Q6HRS PRN IV NAUSEA/VOMITING; Start 12/22/18 at 07:00; Stop 12/23/18 at 06:59 Fentanyl Citrate (Fentanyl 2ml Vial) 25 mcg PRN Q5MIN PRN IV MILD PAIN; Start 12/22/18 at 07:00; Stop 12/23/18 at 06:59 Fentanyl Citrate (Fentanyl 2ml Vial) 50 mcg PRN Q5MIN PRN IV MODERATE TO SEVERE PAIN; Start 12/22/18 at 07:00; Stop 12/23/18 at 06:59 Morphine Sulfate (Morphine Sulfate) 1 mg PRN Q10MIN PRN IV SEVERE PAIN; Start 12/22/18 at 07:00; Stop 12/23/18 at 06:59 Ringer's Solution 1,000 ml @ 30 mls/hr Q24H IV ; Start 12/22/18 at 07:00; Stop 12/22/18 at 18:59 Hydromorphone HCl (Dilaudid) 0.5 mg PRN Q10MIN PRN IV SEV PAIN, Second choice; Start 12/22/18 at 07:00; Stop 12/23/18 at 06:59 Prochlorperazine Edisylate (Compazine) 5 mg PACU PRN PRN IV NAUSEA, MRX1; Start 12/22/18 at 07:00; Stop 12/23/18 at 06:59 Propofol 20 ml @ As Directed STK-MED ONCE IV ; Start 12/22/18 at 11:20; Stop 12/22 at 11:21; Status DC Dexamethasone Sodium Phosphate (Decadron) 20 mg STK-MED ONCE .ROUTE ; Start 12/22 at 11:20; Stop 12/22/18 at 11:21; Status DC Lidocaine HCl (Lidocaine Pf 2% Vial) 5 ml STK-MED ONCE .ROUTE ; Start 12/22/18 at 11:20; Stop 12/22/18 at 11:21; Status DC Ondansetron HCl (Zofran) 4 mg STK-MED ONCE .ROUTE ; Start 12/22/18 at 11:20; Stop 12/22/18 at 11:21; Status DC Fentanyl Citrate (Fentanyl 2ml Vial) 100 mcg STK-MED ONCE .ROUTE ; Start at 11:20; Stop 12/22/18 at 11:21; Status DC Clindamycin Phosphate 50 ml @ As Directed STK-MED ONCE IV ; Start 12/22/18 at 12: 37; Stop 12/22/18 at 12:38; Status DC Clindamycin Phosphate 50 ml @ 100 mls/hr 1X ONCE IV Last administered on at 12:40; Start 12/22/18 at 13:15; Stop 12/22/18 at 13:44; Status DC Bupivacaine HCl (Sensorcaine Mpf 0.5%) 30 ml STK-MED ONCE .ROUTE Last administered on 12/22/18at 14:10; Start 12/22/18 at 13:54; Stop 12/22/18 at 13:55; Status DC Fentanyl Citrate (Fentanyl 2ml Vial) 100 mcg STK-MED ONCE .ROUTE ; Start at 13:59; Stop 12/22/18 at 14:00; Status DC Sevoflurane (Ultane) 60 ml STK-MED ONCE IH ; Start 12/22/18 at 14:03; Stop at 14:04; Status DC Active Scripts Active Oxycodone Hcl 5 Mg Capsule 5 Mg PO Q4H PRN 30 Days Lisinopril 40 Mg Tablet 20 Mg PO DAILY 30 Days Meclizine Hcl 25 Mg Tablet 1 Tab PO Q8HRS PRN Reported Pravastatin Sodium 20 Mg Tablet 1 Tab PO DAILY Venlafaxine Hcl 37.5 Mg Tablet 1 Tab PO BID Children's Aspirin (Aspirin) 81 Mg Tab.chew 81 Mg PO DAILY Latanoprost 2.5 Ml Drops 1 Drop EACHEYE QHS Protonix (Pantoprazole Sodium) 20 Mg Tablet.dr 2 Tab PO DAILY Ferrous Gluconate 324 Mg Tablet 324 Mg PO DAILY Acetaminophen-Cod #3 Tablet (Acetaminophen/Codeine Phosphate) 1 Each Tablet 1 Tab PO PRN TID PRN Eye Drops (Tetrahydrozoline Hcl) 15 Ml Drops 15 Ml OP PRN Calcium + D3 Er Tablet (Calcium Carb & Cit/Vitamin D3) 1 Each Tablet.er 1 Each PO Alendronate Sodium 70 Mg Tablet 1 Tab PO WEEKLY Fluoxetine Hcl 10 Mg Capsule 10 Mg PO Vitals/I & O Vital Sign - Last 24 Hours 12/21/18 12/21/18 12/21/18 12/21/18 16:30 16:30 17:30 17:30 O2 Delivery Room Air Room Air Room Air Room Air 12/21/18 12/21/18 12/21/18 12/21/18 18:09 19:30 20:00 23:19 Temp 98.6 99.0 98.6 99.0 Pulse 102 101 Resp 18 18 B/P (MAP) 119/43 (68) 118/54 (75) Pulse Ox 95 95 O2 Delivery Room Air Room Air Room Air Room Air 3/11/1112/22/18 12/22/18 12/22/18 01:59 02:30 03:14 07:00 Temp 98.5 98.8 98.5 98.8 Pulse 100 104 Resp 18 16 18 18 B/P (MAP) 116/52 (73) 105/40 (61) Pulse Ox 95 94 O2 Delivery Room Air Room Air Room Air 12/22/18 12/22/18 12/22/18 12/22/18 08:10 08:49 09:30 11:00 Temp 98.2 98.2 Pulse 98 Resp 18 B/P (MAP) 132/49 (76) Pulse Ox 96 O2 Delivery Room Air Room Air Room Air Room Air 12/22/18 12/22/18 12/22/18 12/22/18 11:59 12:32 14:17 14:17 Temp 98.8 97.8 98.8 97.8 Pulse 95 110 Resp 16 22 B/P (MAP) 119/56 169/66 Pulse Ox 96 98 O2 Delivery Room Air Room Air Simple Mask Mask O2 Flow Rate 10 10 12/22/18 12/22/18 12/22/18 14:30 14:45 15:00 Temp 97.8 97.8 97.8 97.8 97.8 97.8 Pulse 98 100 98 Resp 13 21 16 B/P (MAP) 175/28 123/87 164/72 Pulse Ox 98 98 96 O2 Delivery Simple Mask Nasal Cannula Nasal Cannula O2 Flow Rate 5 2 2 Intake and Output 12/21/18 12/21/18 12/22/18 15:00 23:00 07:00 Intake Total 225 ml 350 ml 360 ml Balance 225 ml 350 ml 360 ml GEMMA FINNEGAN MD Dec 22, 2018 15:55
[2018-12-22] MEDS: oxyCODONE IR 5 MG TABLET PO PRN ×2 (16:11→22:44)
--- NOTE | 2018-12-22 16:27 | NUR ---
SW following. RN advised pt and family wanting to speak with SW. SW met with pt and family, pt had been at [facility] two days before falling. Pt has also been to [facility]. SW discussed difference between Acute rehab and SNU. SW waiting on PT/OT recommendations. SW will continue to follow. RN notified.
--- NOTE | 2018-12-22 18:27 | PDOC4 ---
Operative Note Operative Note Date of surgery: 12/22/2018 Preoperative diagnosis: Displaced bimalleolar right ankle fracture Postoperative diagnosis: Same Operative procedure: Operative reduction internal fixation right bimalleolar ankle fracture Surgeon: Caren Anesthesia: Gen. Estimated blood loss: 40 mL Complications: None Operative indications: Patient is an 83-year-old female who injured her right ankle in a fall at home. Please see my consultation for detailed operative indications and note that we did cover the possibility of delayed or nonhealing especially due to her chronic renal insufficiency possibility of infection nerve or blood vessel damage medical or other anesthetic complications among others. Patient and family agree to proceed with surgical evaluation and treatment. Operative text: Patient was identified procedure verified patient placed in the supine position on the operating table. After adequate amounts of general anesthesia were administered a thigh tourniquet was placed and the right lower extremity was prepped and draped in standard sterile fashion. After timeout was performed patient procedure identified and verified a curvilinear incision was made over the medial malleolus subperiosteal dissection was carried out and initial reduction of the medial malleolar fragment was attempted with guidewires to accommodate cannulated screws. The medial malleolar fragment unfortunately was partially fragmented and I had initial difficulty with adequate reduction with the wire fixation therefore attention was turned to the lateral portion of the ankle where a subperiosteal dissection was carried out to the distal fibula and anatomic reduction was carried out with a Chris 8 hole distal fibular locking plate. With reduction carried out a shaft screw was placed in a nonlocking fashion distal locking screws were placed under fluoroscopic guidance and the remainder of shaft screws were placed both proximally and distally to achieve excellent fixation about the fracture site and reduced ankle joint mortise. I then went back at this point to reattempt medial malleolar reduction and due to the fragmentation a single screw captured the major fragment and a long threaded 50 mm 4.0 cannulated screw was placed across the guidewire obtaining good medial malleolar fixation. Stability of the ankle was then tested under fluoroscopic guidance and placement of all hardware was verified under fluoroscopic guidance as well. Thorough irrigation carried out normal saline solution subcutaneous closure with buried Vicryl suture skin closure with alice sterile dressings were then applied followed by a well- padded posterior splint. Toes were noted warm pink palm deflation of tourniquet. I had placed additional Xeroform gauze around the ankles circumferentially due to her skin dryness and plaques as I wanted to minimize any potential infection risk from these. DIANE FINLEY MD Dec 22, 2018 18:26
[2018-12-22] MEDS: ACETAMINOPHEN/CODEINE 300/30MG TABLET. PO PRN (20:01)
[2018-12-22] MEDS: ATORVASTATIN CALCIUM 20 MG TABLET PO SCH (20:01)
[2018-12-22] MEDS: LATANOPROST 0.005% OPHTH SOLUTION 2.5ML BOTTLE. OU SCH (20:02)
[2018-12-23 03:00] VITALS: BP 154/78
[2018-12-23] MEDS: ACETAMINOPHEN/CODEINE 300/30MG TABLET. PO PRN ×3 (03:26→16:55)
[2018-12-23] MEDS: HEPARIN for SUB-Q USE 5,000 UNIT/ML VIAL. SQ SCH ×3 (05:04→21:25)
[2018-12-23 07:00] VITALS: BP 145/76
[2018-12-23] MEDS: PANTOPRAZOLE 40 MG TABLET.DR. PO SCH (07:35)
[2018-12-23] MEDS: oxyCODONE IR 5 MG TABLET PO PRN ×2 (07:36→15:16)
[2018-12-23] MEDS: traMADol 50 MG TABLET PO PRN ×2 (07:36→15:16)
[2018-12-23 11:00] VITALS: BP 122/63
[2018-12-23] MEDS: FERROUS SULFATE 325 MG TABLET. PO SCH (11:14)
[2018-12-23] MEDS: DOCUSATE SODIUM 100 MG CAPSULE. PO SCH ×2 (11:16→21:20)
[2018-12-23] MEDS: VENLAFAXINE XR 37.5 MG CAP.ER.24H. PO SCH ×2 (11:16→21:20)
[2018-12-23] MEDS: FLUoxetine HCL 10 MG CAPSULE PO SCH (11:17)
[2018-12-23] MEDS: CYCLOBENZAPRINE 10 MG TABLET. PO PRN ×2 (11:18→16:55)
--- NOTE | 2018-12-23 11:56 | CONS ---
DATE OF CONSULTATION: 12/22/2018 REQUESTING PHYSICIAN: Dr. Dominga Issa. REASON FOR CONSULTATION: Bimalleolar right ankle fracture. HISTORY OF PRESENT ILLNESS: The patient is an 83-year-old female who lives at home, was previously independently ambulatory, but sustained a fall and injured her right ankle, inability to bear weight. She seemed somewhat confused, although certainly answered my questions appropriately, but later on in reviewing this with her family, did not seem to remember talking to me very much. Her medical history was obtained from the patient caregiver and chart review. PAST MEDICAL HISTORY: Significant for heart murmur and high blood pressure. She also has some dementia, peripheral neuropathy, heart disease, hyperlipidemia, anemia, depression and some chronic renal insufficiency. PAST SURGICAL HISTORY: Right knee replacement. FAMILY HISTORY: Significant for Alzheimer's, diabetes, hypertension and cancer. SOCIAL HISTORY: Lives alone. Denies smoking, alcohol or drug use. MEDICATIONS: List is reviewed. ALLERGIES: INCLUDE PENICILLIN, SULFA, CODEINE, LIDOCAINE, LOVASTATIN, QUININE AND OXAPROZIN. REVIEW OF SYSTEMS: Significant only for the right ankle pain and otherwise some apparent confusion. Denies chest pain, shortness of breath, fever, chills, other constitutional symptoms. PHYSICAL EXAMINATION: GENERAL: A pleasant, cooperative, but somewhat confused. Apparently 83-year-old female, alert and oriented, no acute distress. EXTREMITIES: She has good motion of bilateral shoulders, elbows and wrists. On examination of lower extremities has obvious deformity to the right ankle. Overlying skin is intact. Some mild swelling. Normal examination of the contralateral ankle, bilateral hips and knees with a well-healed medial incision from a total knee arthroplasty on the right with good balance and stability, patellofemoral tracking. On examination of her skin, her distal pulses, sensation, reflexes are intact. She does have some peripheral stocking neuropathy in stocking distribution in both feet, and she does have a skin condition where she has significant shutting plaques all over her legs. IMAGING: X-rays show a displaced bimalleolar right ankle fracture. IMPRESSION: Bimalleolar right ankle fracture. TREATMENT PLAN: I went over with her and her family the structure and function of the ankle, the instability created with a bimalleolar ankle fracture and the rationale for fixation of it. The typical restricted weightbearing associated with the injury depending on her healing and the risks of possible nonhealing, infection, nerve or blood vessel damage, medical or other anesthetic complications among others and the slow healing expected, especially due to her chronic renal insufficiency. All their questions were answered. The patient and family agreed to proceed with surgical evaluation and treatment, which will occur today pending operating room availability. DIANE FINLEY MD DR: KACI/bj JOB#: [id number] / [id number]
--- NOTE | 2018-12-23 12:14 | PDOC ---
PROGRESS NOTES Chief Complaint Chief Complaint Bimalleolar fracture right, traumatic, closed Mechanical fall Hypertension CAD, heart murmur all chronic stable htn CKD3 anemia of CKD History of Present Illness History of Present Illness s/p surg some muscle spasm today weakness will limit mobility check labs todaym, f/u Vitals Vitals Vital Signs Date Time Temp Pulse Resp B/P (MAP) Pulse Ox O2 Delivery O2 Flow Rate FiO2 12/23/18 11:18 Room Air 12/23/18 07:00 98.3 109 18 145/76 (99) 96 98.3 12/22/18 20:01 2.0 Physical Exam General: Alert, Cooperative, No acute distress Heart: Regular rate Lungs: Clear, Wheezing Abdomen: Soft Extremities: No cyanosis, Other Skin: No rashes, No breakdown Review of Systems Review of Systems no n./v./d s Comment Review of Relevant I have reviewed the following items ingrid (where applicable) has been applied. Medications Current Medications Sodium Chloride 1,000 ml @ 75 mls/hr [id number] IV Last administered on 12/22/18at 08:43; Start 12/21/18 at 11:41; Stop 12/22/18 at 18:26; Status DC Ondansetron HCl (Zofran) 4 mg PRN Q6HRS PRN IV NAUSEA/VOMITING 1ST CHOICE; Start 12/21/18 at 11:45 Prochlorperazine Edisylate (Compazine) 10 mg PRN Q6HRS PRN IV NAUSEA/VOMITING 2ND CHOICE; Start 12/21/18 at 11:45 Prochlorperazine (Compazine) 25 mg PRN Q12HR PRN [place] NAUSEA/VOMITING; Start at 11:45 Calcium Carbonate/ Glycine (Tums) 500 mg PRN Q3HRS PRN PO UPSET STOMACH; Start 12/21/18 at 11:45 Acetaminophen (Tylenol) 650 mg PRN Q6HRS PRN PO Headaches, Temp > 101.5F Last administered on 12/21/18at 22:13; Start 12/21/18 at 11:45 Docusate Sodium (Colace) 100 mg BID PO Last administered on 12/23/18at 11:16; Start 12/21/18 at 21:00 Heparin Sodium (Porcine) (Heparin Sodium) 5,000 unit Q8HRS SQ Last administered on 12/23/18 05:04; Start 12/21/18 at 14:00 Fentanyl Citrate (Fentanyl 2ml Vial) 50 mcg PRN Q2HR PRN IV PAIN Last administered on 12/22/18 11:59; Start 12/21/18 at 11:45 Tramadol HCl (Ultram) 50 mg PRN Q6HRS PRN PO MODERATE PAIN Last administered on 12/23/18 07:36; Start 12/21/18 at 11:45 Acetaminophen/ Codeine Phosphate (Tylenol #3) 1 tab PRN TID PRN PO MILD PAIN Last administered on 12/23/18 11:18; Start 12/21/18 at 13:15 Atorvastatin Calcium (Lipitor) 20 mg HS PO Last administered on 12/22/18 20:01 ; Start 12/21/18 at 21:00 Fluoxetine HCl (PROzac) 10 mg DAILY PO Last administered on 12/23/18 11:17; Start 12/22/18 at 09:00 Lisinopril (Prinivil) 20 mg DAILY PO ; Start 12/22/18 at 09:00; Stop 12/23/18 at 10:35; Status DC Non-Formulary Medication (Alendronate Sodium ) 1 tab WEEKLY PO ; Start 12/28/18 at 09:00; Status UNV Ferrous Sulfate (Feosol) 325 mg DAILYWBKFT PO Last administered on 12/23/18 11: 14; Start 12/22/18 at 08:00 Latanoprost (Xalatan) 1 drop QHS OU Last administered on 12/22/18 20:02; Start 12/21/18 at 21:00 Meclizine HCl (Antivert) 25 mg PRN Q8HRS PRN PO DIZZINESS; Start 12/21/18 at 13 :30 Oxycodone HCl (Roxicodone) 5 mg PRN Q4HRS PRN PO SEVERE PAIN Last administered on 12/23/18 07:36; Start 12/21/18 at 13:30 Pantoprazole Sodium (Protonix) 40 mg DAILYAC PO Last administered on 12/23/18 07:35; Start 12/21/18 at 14:00 Venlafaxine HCl (Effexor Xr) 37.5 mg BID PO Last administered on 3/2/19at 11:16 ; Start 12/21/18 at 14:00 Ondansetron HCl (Zofran) 4 mg PRN Q6HRS PRN IV NAUSEA/VOMITING; Start 12/22/18 at 07:00; Stop 12/23/18 at 06:59; Status DC Fentanyl Citrate (Fentanyl 2ml Vial) 25 mcg PRN Q5MIN PRN IV MILD PAIN; Start 12/22/18 at 07:00; Stop 12/23/18 at 06:59; Status DC Fentanyl Citrate (Fentanyl 2ml Vial) 50 mcg PRN Q5MIN PRN IV MODERATE TO SEVERE PAIN; Start 12/22/18 at 07:00; Stop 12/23/18 at 06:59; Status DC Morphine Sulfate (Morphine Sulfate) 1 mg PRN Q10MIN PRN IV SEVERE PAIN; Start 12/22/18 at 07:00; Stop 12/23/18 at 06:59; Status DC Ringer's Solution 1,000 ml @ 30 mls/hr Q24H IV ; Start 12/22/18 at 07:00; Stop 12/22/18 at 18:59; Status DC Hydromorphone HCl (Dilaudid) 0.5 mg PRN Q10MIN PRN IV SEV PAIN, Second choice; Start 12/22/18 at 07:00; Stop 12/23/18 at 06:59; Status DC Prochlorperazine Edisylate (Compazine) 5 mg PACU PRN PRN IV NAUSEA, MRX1; Start 12/22/18 at 07:00; Stop 12/23/18 at 06:59; Status DC Propofol 20 ml @ As Directed STK-MED ONCE IV ; Start 12/22/18 at 11:20; Stop 12/22 at 11:21; Status DC Dexamethasone Sodium Phosphate (Decadron) 20 mg STK-MED ONCE .ROUTE ; Start 12/22 at 11:20; Stop 12/22/18 at 11:21; Status DC Lidocaine HCl (Lidocaine Pf 2% Vial) 5 ml STK-MED ONCE .ROUTE ; Start 12/22/18 at 11:20; Stop 12/22/18 at 11:21; Status DC Ondansetron HCl (Zofran) 4 mg STK-MED ONCE .ROUTE ; Start 12/22/18 at 11:20; Stop 12/22/18 at 11:21; Status DC Fentanyl Citrate (Fentanyl 2ml Vial) 100 mcg STK-MED ONCE .ROUTE ; Start at 11:20; Stop 12/22/18 at 11:21; Status DC Clindamycin Phosphate 50 ml @ As Directed STK-MED ONCE IV ; Start 12/22/18 at 12: 37; Stop 12/22/18 at 12:38; Status DC Clindamycin Phosphate 50 ml @ 100 mls/hr 1X ONCE IV Last administered on at 12:40; Start 12/22/18 at 13:15; Stop 12/22/18 at 13:44; Status DC Bupivacaine HCl (Sensorcaine Mpf 0.5%) 30 ml STK-MED ONCE .ROUTE Last administered on 12/22/18at 14:10; Start 12/22/18 at 13:54; Stop 12/22/18 at 13:55; Status DC Fentanyl Citrate (Fentanyl 2ml Vial) 100 mcg STK-MED ONCE .ROUTE ; Start at 13:59; Stop 12/22/18 at 14:00; Status DC Sevoflurane (Ultane) 60 ml STK-MED ONCE IH ; Start 12/22/18 at 14:03; Stop at 14:04; Status DC Cyclobenzaprine HCl (Flexeril) 10 mg PRN Q6HRS PRN PO MUSCLE SPASMS Last administered on 12/23/18at 11:18; Start 12/23/18 at 10:30 Lisinopril (Prinivil) 10 mg DAILY PO ; Start 12/24/18 at 09:00 Carvedilol (Coreg) 3.125 mg BIDWMEALS PO ; Start 12/23/18 at 17:00 Active Scripts Active Oxycodone Hcl 5 Mg Capsule 5 Mg PO Q4H PRN 30 Days Lisinopril 40 Mg Tablet 20 Mg PO DAILY 30 Days Meclizine Hcl 25 Mg Tablet 1 Tab PO Q8HRS PRN Reported Pravastatin Sodium 20 Mg Tablet 1 Tab PO DAILY Venlafaxine Hcl 37.5 Mg Tablet 1 Tab PO BID Children's Aspirin (Aspirin) 81 Mg Tab.chew 81 Mg PO DAILY Latanoprost 2.5 Ml Drops 1 Drop EACHEYE QHS Protonix (Pantoprazole Sodium) 20 Mg Tablet.dr 2 Tab PO DAILY Ferrous Gluconate 324 Mg Tablet 324 Mg PO DAILY Acetaminophen-Cod #3 Tablet (Acetaminophen/Codeine Phosphate) 1 Each Tablet 1 Tab PO PRN TID PRN Eye Drops (Tetrahydrozoline Hcl) 15 Ml Drops 15 Ml OP PRN Calcium + D3 Er Tablet (Calcium Carb & Cit/Vitamin D3) 1 Each Tablet.er 1 Each PO Alendronate Sodium 70 Mg Tablet 1 Tab PO WEEKLY Fluoxetine Hcl 10 Mg Capsule 10 Mg PO Vitals/I & O Vital Sign - Last 24 Hours 12/22/18 12/22/18 12/22/18 12/22/18 12:32 14:17 14:17 14:30 Temp 98.8 97.8 97.8 98.8 97.8 97.8 Pulse 95 110 98 Resp 16 22 13 B/P (MAP) 119/56 169/66 175/28 Pulse Ox 96 98 98 O2 Delivery Room Air Simple Mask Mask Simple Mask O2 Flow Rate 10 10 5 12/22/18 12/22/18 12/22/18 12/22/18 14:45 15:00 15:45 16:00 Temp 97.8 97.8 97.8 97.8 Pulse 100 98 117 106 Resp 21 16 18 18 B/P (MAP) 123/87 164/72 130/68 (88) 101/50 (67) Pulse Ox 98 96 88 91 O2 Delivery Nasal Cannula Nasal Cannula Room Air Room Air O2 Flow Rate 2 2 12/22/18 12/22/18 12/22/18 12/22/18 16:11 16:15 16:30 16:45 Pulse 77 115 114 Resp 18 18 18 B/P (MAP) 89/32 (51) 144/61 (88) 118/52 (74) Pulse Ox 92 93 91 O2 Delivery Nasal Cannula Room Air Room Air Room Air 12/22/18 12/22/18 12/22/18 12/22/18 17:15 17:45 18:15 19:00 Temp 97.5 97.5 Pulse 122 110 140 120 Resp 18 18 18 18 B/P (MAP) 128/55 (79) 114/60 (78) 106/63 (77) 113/64 (80) Pulse Ox 93 92 93 94 O2 Delivery Room Air Room Air Room Air Room Air 12/22/18 12/22/18 12/22/181/19 20:00 20:01 21:01 22:44 Resp 16 16 Pulse Ox 94 94 O2 Delivery Room Air Nasal Cannula Room Air Room Air O2 Flow Rate 2.0 12/22/18 12/22/18 12/23/18 12/23/18 23:00 23:44 03:00 03:26 Temp 98.7 98.0 98.7 98.0 Pulse 109 105 Resp 18 16 18 16 B/P (MAP) 160/79 (106) 154/78 (103) Pulse Ox 94 96 O2 Delivery Room Air Room Air Room Air 12/23/18 12/23/18 12/23/18 12/23/18 04:26 07:00 07:36 07:36 Temp 98.3 98.3 Pulse 109 Resp 16 18 B/P (MAP) 145/76 (99) Pulse Ox 96 O2 Delivery Room Air Room Air Room Air 12/23/18 12/23/18 12/23/18 08:36 08:36 11:18 O2 Delivery Room Air Room Air Room Air Intake and Output 12/22/18 12/22/18 12/23/18 14:59 22:59 06:59 Intake Total 750 ml Output Total 20 ml 210 ml Balance 730 ml -210 ml GEMMA FINNEGAN MD Dec 23, 2018 12:14
[2018-12-23 12:36] LABS: BASO % 1 % (0-3); EOS # 0.1 x10^3/uL (0.0-0.7); EOS % 1 % (0-3); HEMATOCRIT 22.8 % (36.0-47.0); HEMOGLOBIN 7.5 g/dL (12.0-15.5); LYMPH # 1.8 x10^3/uL (1.0-4.8); LYMPH % 17 % (24-48); MEAN CORPUSCULAR HEMOGLOBIN 32 pg (25-35); MEAN CORPUSCULAR HGB CONC 33 g/dL (31-37); MEAN CORPUSCULAR VOLUME 98 fL (79-100); MONO # 1.4 x10^3/uL (0.0-1.1); MONO % 13 % (0-9); NEUT # 7.3 x10^3uL (1.8-7.7); NEUT % 68 % (31-73); PLATELET COUNT 226 x10^3/uL (140-400); RED BLOOD COUNT 2.33 x10^6/uL (3.50-5.40); RED CELL DISTRIBUTION WIDTH 13.7 % (11.5-14.5); WHITE BLOOD COUNT 10.7 x10^3/uL (4.0-11.0)
[2018-12-23 12:52] LABS: CALCIUM 7.9 mg/dL (8.5-10.1); CREATININE 1.9 mg/dL (0.6-1.0); GFR 25.2; MAGNESIUM 1.5 mg/dL (1.8-2.4); POTASSIUM 4.4 mmol/L (3.5-5.1)
[2018-12-23 15:00] VITALS: BP 131/73
[2018-12-23] MEDS: CARVEDILOL 3.125 MG TABLET. PO SCH (16:46)
[2018-12-23 19:30] VITALS: BP 115/65
[2018-12-23] MEDS: LATANOPROST 0.005% OPHTH SOLUTION 2.5ML BOTTLE. OU SCH (21:00)
[2018-12-23] MEDS: ATORVASTATIN CALCIUM 20 MG TABLET PO SCH (21:20)
[2018-12-23 23:26] VITALS: BP 146/72
[2018-12-24 03:10] VITALS: BP 151/74
[2018-12-24] MEDS: PANTOPRAZOLE 40 MG TABLET.DR. PO SCH (05:43)
[2018-12-24] MEDS: HEPARIN for SUB-Q USE 5,000 UNIT/ML VIAL. SQ SCH ×3 (05:50→21:56)
[2018-12-24 07:00] VITALS: BP 153/78
[2018-12-24] MEDS: CARVEDILOL 3.125 MG TABLET. PO SCH ×2 (08:09→17:22)
[2018-12-24] MEDS: FERROUS SULFATE 325 MG TABLET. PO SCH (08:09)
[2018-12-24] MEDS: VENLAFAXINE XR 37.5 MG CAP.ER.24H. PO SCH ×2 (08:09→22:00)
[2018-12-24] MEDS: DOCUSATE SODIUM 100 MG CAPSULE. PO SCH ×2 (08:09→21:54)
[2018-12-24] MEDS: FLUoxetine HCL 10 MG CAPSULE PO SCH (08:09)
[2018-12-24] MEDS: LISINOPRIL 10 MG TABLET PO SCH (08:10)
[2018-12-24 11:00] VITALS: BP 148/72
--- NOTE | 2018-12-24 12:39 | PDOC ---
PROGRESS NOTES Chief Complaint Chief Complaint Bimalleolar fracture right, traumatic, closed Mechanical fall Hypertension CAD, heart murmur all chronic stable htn CKD3 anemia of CKD History of Present Illness History of Present Illness s/p surg some muscle spasm today weakness will limit mobility 2 prior admits for falls to Rehab, had just got out of [facility] days before this incident, should benefit from SNU again Vitals Vitals Vital Signs Date Time Temp Pulse Resp B/P (MAP) Pulse Ox O2 Delivery O2 Flow Rate FiO2 12/24/18 11:00 97.4 60 18 148/72 (97) 100 Room Air 97.4 Physical Exam General: Alert, Cooperative, No acute distress Heart: Regular rate Lungs: Clear, Wheezing Abdomen: Soft Extremities: No cyanosis, Other Skin: No rashes, No breakdown Comment Review of Relevant I have reviewed the following items ingrid (where applicable) has been applied. Labs Laboratory Tests Test 12/23/18 12:15 White Blood Count 10.7 x10^3/uL (4.0-11.0) Red Blood Count 2.33 x10^6/uL (3.50-5.40) Hemoglobin 7.5 g/dL (12.0-15.5) Hematocrit 22.8 % (36.0-47.0) Mean Corpuscular Volume 98 fL (79-100) Mean Corpuscular Hemoglobin 32 pg (25-35) Mean Corpuscular Hemoglobin Concent 33 g/dL (31-37) Red Cell Distribution Width 13.7 % (11.5-14.5) Platelet Count 226 x10^3/uL (140-400) Neutrophils (%) (Auto) 68 % (31-73) Lymphocytes (%) (Auto) 17 % (24-48) Monocytes (%) (Auto) 13 % (0-9) Eosinophils (%) (Auto) 1 % (0-3) Basophils (%) (Auto) 1 % (0-3) Neutrophils # (Auto) 7.3 x10^3uL (1.8-7.7) Lymphocytes # (Auto) 1.8 x10^3/uL (1.0-4.8) Monocytes # (Auto) 1.4 x10^3/uL (0.0-1.1) Eosinophils # (Auto) 0.1 x10^3/uL (0.0-0.7) Basophils # (Auto) 0.0 x10^3/uL (0.0-0.2) Sodium Level 141 mmol/L (136-145) Potassium Level 4.4 mmol/L (3.5-5.1) Chloride Level 107 mmol/L (98-107) Carbon Dioxide Level 22 mmol/L (21-32) Anion Gap 12 (6-14) Blood Urea Nitrogen 32 mg/dL (7-20) Creatinine 1.9 mg/dL (0.6-1.0) Estimated GFR (Cockcroft-Gault) 25.2 Glucose Level 115 mg/dL (70-99) Calcium Level 7.9 mg/dL (8.5-10.1) Magnesium Level 1.5 mg/dL (1.8-2.4) Medications Current Medications Sodium Chloride 1,000 ml @ 75 mls/hr [id number] IV Last administered on 12/22/18at 08:43; Start 12/21/18 at 11:41; Stop 12/22/18 at 18:26; Status DC Ondansetron HCl (Zofran) 4 mg PRN Q6HRS PRN IV NAUSEA/VOMITING 1ST CHOICE; Start 12/21/18 at 11:45 Prochlorperazine Edisylate (Compazine) 10 mg PRN Q6HRS PRN IV NAUSEA/VOMITING 2ND CHOICE; Start 12/21/18 at 11:45 Prochlorperazine (Compazine) 25 mg PRN Q12HR PRN [place] NAUSEA/VOMITING; Start at 11:45 Calcium Carbonate/ Glycine (Tums) 500 mg PRN Q3HRS PRN PO UPSET STOMACH; Start 12/21/18 at 11:45 Acetaminophen (Tylenol) 650 mg PRN Q6HRS PRN PO Headaches, Temp > 101.5F Last administered on 12/21/18at 22:13; Start 12/21/18 at 11:45 Docusate Sodium (Colace) 100 mg BID PO Last administered on 12/24/18at 08:09; Start 12/21/18 at 21:00 Heparin Sodium (Porcine) (Heparin Sodium) 5,000 unit Q8HRS SQ Last administered on 12/24/18at 05:50; Start 12/21/18 at 14:00 Fentanyl Citrate (Fentanyl 2ml Vial) 50 mcg PRN Q2HR PRN IV PAIN Last administered on 12/22/18 11:59; Start 12/21/18 at 11:45 Tramadol HCl (Ultram) 50 mg PRN Q6HRS PRN PO MODERATE PAIN Last administered on 12/23/18 15:16; Start 12/21/18 at 11:45 Acetaminophen/ Codeine Phosphate (Tylenol #3) 1 tab PRN TID PRN PO MILD PAIN Last administered on 12/23/18 16:55; Start 12/21/18 at 13:15 Atorvastatin Calcium (Lipitor) 20 mg HS PO Last administered on 12/23/18 21:20 ; Start 12/21/18 at 21:00 Fluoxetine HCl (PROzac) 10 mg DAILY PO Last administered on 12/24/18 08:09; Start 12/22/18 at 09:00 Lisinopril (Prinivil) 20 mg DAILY PO ; Start 12/22/18 at 09:00; Stop 12/23/18 at 10:35; Status DC Non-Formulary Medication (Alendronate Sodium ) 1 tab WEEKLY PO ; Start 12/28/18 at 09:00; Status UNV Ferrous Sulfate (Feosol) 325 mg DAILYWBKFT PO Last administered on 12/24/18 08: 09; Start 12/22/18 at 08:00 Latanoprost (Xalatan) 1 drop QHS OU Last administered on 12/23/18 21:00; Start 12/21/18 at 21:00 Meclizine HCl (Antivert) 25 mg PRN Q8HRS PRN PO DIZZINESS; Start 12/21/18 at 13 :30 Oxycodone HCl (Roxicodone) 5 mg PRN Q4HRS PRN PO SEVERE PAIN Last administered on 12/23/18 15:16; Start 12/21/18 at 13:30 Pantoprazole Sodium (Protonix) 40 mg DAILYAC PO Last administered on 12/24/18 05:43; Start 12/21/18 at 14:00 Venlafaxine HCl (Effexor Xr) 37.5 mg BID PO Last administered on 12/24/18 08:09 ; Start 12/21/18 at 14:00 Ondansetron HCl (Zofran) 4 mg PRN Q6HRS PRN IV NAUSEA/VOMITING; Start 12/22/18 at 07:00; Stop 12/23/18 at 06:59; Status DC Fentanyl Citrate (Fentanyl 2ml Vial) 25 mcg PRN Q5MIN PRN IV MILD PAIN; Start 12/22/18 at 07:00; Stop 12/23/18 at 06:59; Status DC Fentanyl Citrate (Fentanyl 2ml Vial) 50 mcg PRN Q5MIN PRN IV MODERATE TO SEVERE PAIN; Start 12/22/18 at 07:00; Stop 12/23/18 at 06:59; Status DC Morphine Sulfate (Morphine Sulfate) 1 mg PRN Q10MIN PRN IV SEVERE PAIN; Start 12/22/18 at 07:00; Stop 12/23/18 at 06:59; Status DC Ringer's Solution 1,000 ml @ 30 mls/hr Q24H IV ; Start 12/22/18 at 07:00; Stop 12/22/18 at 18:59; Status DC Hydromorphone HCl (Dilaudid) 0.5 mg PRN Q10MIN PRN IV SEV PAIN, Second choice; Start 12/22/18 at 07:00; Stop 12/23/18 at 06:59; Status DC Prochlorperazine Edisylate (Compazine) 5 mg PACU PRN PRN IV NAUSEA, MRX1; Start 12/22/18 at 07:00; Stop 12/23/18 at 06:59; Status DC Propofol 20 ml @ As Directed STK-MED ONCE IV ; Start 12/22/18 at 11:20; Stop 12/22 at 11:21; Status DC Dexamethasone Sodium Phosphate (Decadron) 20 mg STK-MED ONCE .ROUTE ; Start 12/22 at 11:20; Stop 12/22/18 at 11:21; Status DC Lidocaine HCl (Lidocaine Pf 2% Vial) 5 ml STK-MED ONCE .ROUTE ; Start 12/22/18 at 11:20; Stop 12/22/18 at 11:21; Status DC Ondansetron HCl (Zofran) 4 mg STK-MED ONCE .ROUTE ; Start 12/22/18 at 11:20; Stop 12/22/18 at 11:21; Status DC Fentanyl Citrate (Fentanyl 2ml Vial) 100 mcg STK-MED ONCE .ROUTE ; Start at 11:20; Stop 12/22/18 at 11:21; Status DC Clindamycin Phosphate 50 ml @ As Directed STK-MED ONCE IV ; Start 12/22/18 at 12: 37; Stop 12/22/18 at 12:38; Status DC Clindamycin Phosphate 50 ml @ 100 mls/hr 1X ONCE IV Last administered on at 12:40; Start 12/22/18 at 13:15; Stop 12/22/18 at 13:44; Status DC Bupivacaine HCl (Sensorcaine Mpf 0.5%) 30 ml STK-MED ONCE .ROUTE Last administered on 12/22/18at 14:10; Start 12/22/18 at 13:54; Stop 12/22/18 at 13:55; Status DC Fentanyl Citrate (Fentanyl 2ml Vial) 100 mcg STK-MED ONCE .ROUTE ; Start at 13:59; Stop 12/22/18 at 14:00; Status DC Sevoflurane (Ultane) 60 ml STK-MED ONCE IH ; Start 12/22/18 at 14:03; Stop at 14:04; Status DC Cyclobenzaprine HCl (Flexeril) 10 mg PRN Q6HRS PRN PO MUSCLE SPASMS Last administered on 12/23/18at 16:55; Start 12/23/18 at 10:30 Lisinopril (Prinivil) 10 mg DAILY PO Last administered on 12/24/18at 08:10; Start 12/24/18 at 09:00 Carvedilol (Coreg) 3.125 mg BIDWMEALS PO Last administered on 12/24/18at 08:09; Start 12/23/18 at 17:00 Active Scripts Active Oxycodone Hcl 5 Mg Capsule 5 Mg PO Q4H PRN 30 Days Lisinopril 40 Mg Tablet 20 Mg PO DAILY 30 Days Meclizine Hcl 25 Mg Tablet 1 Tab PO Q8HRS PRN Reported Pravastatin Sodium 20 Mg Tablet 1 Tab PO DAILY Venlafaxine Hcl 37.5 Mg Tablet 1 Tab PO BID Children's Aspirin (Aspirin) 81 Mg Tab.chew 81 Mg PO DAILY Latanoprost 2.5 Ml Drops 1 Drop EACHEYE QHS Protonix (Pantoprazole Sodium) 20 Mg Tablet.dr 2 Tab PO DAILY Ferrous Gluconate 324 Mg Tablet 324 Mg PO DAILY Acetaminophen-Cod #3 Tablet (Acetaminophen/Codeine Phosphate) 1 Each Tablet 1 Tab PO PRN TID PRN Eye Drops (Tetrahydrozoline Hcl) 15 Ml Drops 15 Ml OP PRN Calcium + D3 Er Tablet (Calcium Carb & Cit/Vitamin D3) 1 Each Tablet.er 1 Each PO Alendronate Sodium 70 Mg Tablet 1 Tab PO WEEKLY Fluoxetine Hcl 10 Mg Capsule 10 Mg PO Vitals/I & O Vital Sign - Last 24 Hours 12/23/18 12/23/18 12/23/18 12/23/18 15:00 15:16 15:16 16:16 Temp 98.1 98.1 Pulse 102 Resp 18 B/P (MAP) 131/73 (92) Pulse Ox 97 O2 Delivery Room Air Room Air Room Air Room Air 12/23/18 12/23/18 12/23/18 12/23/18 16:16 16:46 16:55 17:55 Pulse 102 B/P (MAP) 131/73 O2 Delivery Room Air Room Air Room Air 12/23/18 12/23/18 12/23/18 12/24/18 19:30 20:00 23:26 03:10 Temp 98.2 98.7 98.5 98.2 98.7 98.5 Pulse 115 121 18 Resp 18 20 18 B/P (MAP) 115/65 (82) 146/72 (96) 151/74 (99) Pulse Ox 92 91 92 O2 Delivery Room Air Room Air Room Air Room Air 12/24/18 12/24/18 12/24/18 12/24/18 07:00 08:00 08:09 08:10 Temp 97.7 97.7 Pulse 62 62 62 Resp 18 B/P (MAP) 153/78 (103) 153/78 153/78 Pulse Ox 100 O2 Delivery Room Air Room Air 12/24/18 11:00 Temp 97.4 97.4 Pulse 60 Resp 18 B/P (MAP) 148/72 (97) Pulse Ox 100 O2 Delivery Room Air Intake and Output 12/23/18 12/23/18 12/24/18 15:00 23:00 07:00 Intake Total 360 ml Balance 360 ml GEMMA FINNEGAN MD Dec 24, 2018 12:39
[2018-12-24 15:00] VITALS: BP 130/61
--- NOTE | 2018-12-24 15:13 | PDOC ---
PROGRESS NOTES Subjective Subjective Problems overnight: Minimal right ankle pain, says the other leg is sore and bruised although she can bear weight on it without difficulty Objective Vital Signs Vital Signs Date Time Temp Pulse Resp B/P (MAP) Pulse Ox O2 Delivery O2 Flow Rate FiO2 12/24/18 11:00 97.4 60 18 148/72 (97) 100 Room Air 97.4 12/22/18 20:01 2.0 Physical Exam On examination she can wiggle her toes distal neurovascular status is intact splint and dressings clean dry intact to right ankle Labs Laboratory Tests Test 12/23/18 12:15 White Blood Count 10.7 x10^3/uL (4.0-11.0) Red Blood Count 2.33 x10^6/uL (3.50-5.40) Hemoglobin 7.5 g/dL (12.0-15.5) Hematocrit 22.8 % (36.0-47.0) Mean Corpuscular Volume 98 fL (79-100) Mean Corpuscular Hemoglobin 32 pg (25-35) Mean Corpuscular Hemoglobin Concent 33 g/dL (31-37) Red Cell Distribution Width 13.7 % (11.5-14.5) Platelet Count 226 x10^3/uL (140-400) Neutrophils (%) (Auto) 68 % (31-73) Lymphocytes (%) (Auto) 17 % (24-48) Monocytes (%) (Auto) 13 % (0-9) Eosinophils (%) (Auto) 1 % (0-3) Basophils (%) (Auto) 1 % (0-3) Neutrophils # (Auto) 7.3 x10^3uL (1.8-7.7) Lymphocytes # (Auto) 1.8 x10^3/uL (1.0-4.8) Monocytes # (Auto) 1.4 x10^3/uL (0.0-1.1) Eosinophils # (Auto) 0.1 x10^3/uL (0.0-0.7) Basophils # (Auto) 0.0 x10^3/uL (0.0-0.2) Sodium Level 141 mmol/L (136-145) Potassium Level 4.4 mmol/L (3.5-5.1) Chloride Level 107 mmol/L (98-107) Carbon Dioxide Level 22 mmol/L (21-32) Anion Gap 12 (6-14) Blood Urea Nitrogen 32 mg/dL (7-20) Creatinine 1.9 mg/dL (0.6-1.0) Estimated GFR (Cockcroft-Gault) 25.2 Glucose Level 115 mg/dL (70-99) Calcium Level 7.9 mg/dL (8.5-10.1) Magnesium Level 1.5 mg/dL (1.8-2.4) Assessment Assessment POD# [], S/P [ORIF right bimalleolar ankle fracture] Plan Plan of Care Silvia reports a previous rehabilitation stay at [place] and was just home a few days when this injury occurred. She is really not able to adequately safely transfer and ambulate without help at home and therefore a rehabilitation stay is planned She is stable from an orthopedic standpoint Plan follow-up about 10-14 days for wound check staple removal and likely placement in a Cam Walker boot for protection, remaining nonweightbearing DIANE FINLEY MD Dec 24, 2018 15:13
[2018-12-24 19:43] VITALS: BP 129/67
[2018-12-24] MEDS: LATANOPROST 0.005% OPHTH SOLUTION 2.5ML BOTTLE. OU SCH (21:00)
[2018-12-24] MEDS: ATORVASTATIN CALCIUM 20 MG TABLET PO SCH (21:54)
[2018-12-24 23:24] VITALS: BP 119/70
[2018-12-25 03:29] VITALS: BP 120/74
[2018-12-25] MEDS: PANTOPRAZOLE 40 MG TABLET.DR. PO SCH (05:56)
[2018-12-25] MEDS: HEPARIN for SUB-Q USE 5,000 UNIT/ML VIAL. SQ SCH ×2 (05:57→13:54)
[2018-12-25 07:00] VITALS: BP 164/73
--- NOTE | 2018-12-25 07:58 | PDOC ---
PROGRESS NOTES Chief Complaint Chief Complaint Bimalleolar fracture right, traumatic, closed Mechanical fall CAD, heart murmur all chronic stable Htn CKD3 Anemia of CKD History of Present Illness History of Present Illness s/p surg 12/22/18 some muscle spasm today weakness will limit mobility 2 prior admits for falls to Rehab, had just got out of [facility] days before this incident, should benefit from SNU again Silvia reports a previous rehabilitation stay at [facility] and was just home a few days when this injury occurred. She is really not able to adequately safely transfer and ambulate without help at home and therefore a rehabilitation stay is planned Ortho ok with d/c - with follow-up about 10-14 days for wound check staple removal and likely placement in a Cam Walker boot for protection, remaining nonweightbearing Vitals Vitals Vital Signs Date Time Temp Pulse Resp B/P (MAP) Pulse Ox O2 Delivery O2 Flow Rate FiO2 12/25/18 07:00 97.9 103 20 164/73 (103) 95 Room Air 97.9 Physical Exam General: Alert, Cooperative, No acute distress Heart: Regular rate Lungs: Clear, Wheezing Abdomen: Soft Extremities: No cyanosis, Other Skin: No rashes, No breakdown Comment Review of Relevant I have reviewed the following items ingrid (where applicable) has been applied. Labs Laboratory Tests Test 12/23/18 12:15 White Blood Count 10.7 x10^3/uL (4.0-11.0) Red Blood Count 2.33 x10^6/uL (3.50-5.40) Hemoglobin 7.5 g/dL (12.0-15.5) Hematocrit 22.8 % (36.0-47.0) Mean Corpuscular Volume 98 fL (79-100) Mean Corpuscular Hemoglobin 32 pg (25-35) Mean Corpuscular Hemoglobin Concent 33 g/dL (31-37) Red Cell Distribution Width 13.7 % (11.5-14.5) Platelet Count 226 x10^3/uL (140-400) Neutrophils (%) (Auto) 68 % (31-73) Lymphocytes (%) (Auto) 17 % (24-48) Monocytes (%) (Auto) 13 % (0-9) Eosinophils (%) (Auto) 1 % (0-3) Basophils (%) (Auto) 1 % (0-3) Neutrophils # (Auto) 7.3 x10^3uL (1.8-7.7) Lymphocytes # (Auto) 1.8 x10^3/uL (1.0-4.8) Monocytes # (Auto) 1.4 x10^3/uL (0.0-1.1) Eosinophils # (Auto) 0.1 x10^3/uL (0.0-0.7) Basophils # (Auto) 0.0 x10^3/uL (0.0-0.2) Sodium Level 141 mmol/L (136-145) Potassium Level 4.4 mmol/L (3.5-5.1) Chloride Level 107 mmol/L (98-107) Carbon Dioxide Level 22 mmol/L (21-32) Anion Gap 12 (6-14) Blood Urea Nitrogen 32 mg/dL (7-20) Creatinine 1.9 mg/dL (0.6-1.0) Estimated GFR (Cockcroft-Gault) 25.2 Glucose Level 115 mg/dL (70-99) Calcium Level 7.9 mg/dL (8.5-10.1) Magnesium Level 1.5 mg/dL (1.8-2.4) Medications Current Medications Sodium Chloride 1,000 ml @ 75 mls/hr [id number] IV Last administered on 12/22/18at 08:43; Start 12/21/18 at 11:41; Stop 12/22/18 at 18:26; Status DC Ondansetron HCl (Zofran) 4 mg PRN Q6HRS PRN IV NAUSEA/VOMITING 1ST CHOICE; Start 12/21/18 at 11:45 Prochlorperazine Edisylate (Compazine) 10 mg PRN Q6HRS PRN IV NAUSEA/VOMITING 2ND CHOICE; Start 12/21/18 at 11:45 Prochlorperazine (Compazine) 25 mg PRN Q12HR PRN MA NAUSEA/VOMITING; Start at 11:45 Calcium Carbonate/ Glycine (Tums) 500 mg PRN Q3HRS PRN PO UPSET STOMACH; Start 12/21/18 at 11:45 Acetaminophen (Tylenol) 650 mg PRN Q6HRS PRN PO Headaches, Temp > 101.5F Last administered on 12/21/18at 22:13; Start 12/21/18 at 11:45 Docusate Sodium (Colace) 100 mg BID PO Last administered on 12/24/18 21:54; Start 12/21/18 at 21:00 Heparin Sodium (Porcine) (Heparin Sodium) 5,000 unit Q8HRS SQ Last administered on 12/25/18 05:57; Start 12/21/18 at 14:00 Fentanyl Citrate (Fentanyl 2ml Vial) 50 mcg PRN Q2HR PRN IV PAIN Last administered on 12/22/18 11:59; Start 12/21/18 at 11:45 Tramadol HCl (Ultram) 50 mg PRN Q6HRS PRN PO MODERATE PAIN Last administered on 12/23/18 15:16; Start 12/21/18 at 11:45 Acetaminophen/ Codeine Phosphate (Tylenol #3) 1 tab PRN TID PRN PO MILD PAIN Last administered on 12/23/18 16:55; Start 12/21/18 at 13:15 Atorvastatin Calcium (Lipitor) 20 mg HS PO Last administered on 12/24/18 21:54 ; Start 12/21/18 at 21:00 Fluoxetine HCl (PROzac) 10 mg DAILY PO Last administered on 12/24/18 08:09; Start 12/22/18 at 09:00 Lisinopril (Prinivil) 20 mg DAILY PO ; Start 12/22/18 at 09:00; Stop 12/23/18 at 10:35; Status DC Non-Formulary Medication (Alendronate Sodium ) 1 tab WEEKLY PO ; Start 12/28/18 at 09:00; Status UNV Ferrous Sulfate (Feosol) 325 mg DAILYWBKFT PO Last administered on 12/24/18 08: 09; Start 12/22/18 at 08:00 Latanoprost (Xalatan) 1 drop QHS OU Last administered on 12/24/18 21:00; Start 12/21/18 at 21:00 Meclizine HCl (Antivert) 25 mg PRN Q8HRS PRN PO DIZZINESS; Start 12/21/18 at 13 :30 Oxycodone HCl (Roxicodone) 5 mg PRN Q4HRS PRN PO SEVERE PAIN Last administered on 12/23/18 15:16; Start 12/21/18 at 13:30 Pantoprazole Sodium (Protonix) 40 mg DAILYAC PO Last administered on 12/25/18at 05:56; Start 12/21/18 at 14:00 Venlafaxine HCl (Effexor Xr) 37.5 mg BID PO Last administered on 12/24/18at 22:00 ; Start 12/21/18 at 14:00 Ondansetron HCl (Zofran) 4 mg PRN Q6HRS PRN IV NAUSEA/VOMITING; Start 12/22/18 at 07:00; Stop 12/23/18 at 06:59; Status DC Fentanyl Citrate (Fentanyl 2ml Vial) 25 mcg PRN Q5MIN PRN IV MILD PAIN; Start 12/22/18 at 07:00; Stop 12/23/18 at 06:59; Status DC Fentanyl Citrate (Fentanyl 2ml Vial) 50 mcg PRN Q5MIN PRN IV MODERATE TO SEVERE PAIN; Start 12/22/18 at 07:00; Stop 12/23/18 at 06:59; Status DC Morphine Sulfate (Morphine Sulfate) 1 mg PRN Q10MIN PRN IV SEVERE PAIN; Start 12/22/18 at 07:00; Stop 12/23/18 at 06:59; Status DC Ringer's Solution 1,000 ml @ 30 mls/hr Q24H IV ; Start 12/22/18 at 07:00; Stop 12/22/18 at 18:59; Status DC Hydromorphone HCl (Dilaudid) 0.5 mg PRN Q10MIN PRN IV SEV PAIN, Second choice; Start 12/22/18 at 07:00; Stop 12/23/18 at 06:59; Status DC Prochlorperazine Edisylate (Compazine) 5 mg PACU PRN PRN IV NAUSEA, MRX1; Start 12/22/18 at 07:00; Stop 12/23/18 at 06:59; Status DC Propofol 20 ml @ As Directed STK-MED ONCE IV ; Start 12/22/18 at 11:20; Stop 12/22 at 11:21; Status DC Dexamethasone Sodium Phosphate (Decadron) 20 mg STK-MED ONCE .ROUTE ; Start 12/22 at 11:20; Stop 12/22/18 at 11:21; Status DC Lidocaine HCl (Lidocaine Pf 2% Vial) 5 ml STK-MED ONCE .ROUTE ; Start 12/22/18 at 11:20; Stop 12/22/18 at 11:21; Status DC Ondansetron HCl (Zofran) 4 mg STK-MED ONCE .ROUTE ; Start 12/22/18 at 11:20; Stop 12/22/18 at 11:21; Status DC Fentanyl Citrate (Fentanyl 2ml Vial) 100 mcg STK-MED ONCE .ROUTE ; Start at 11:20; Stop 12/22/18 at 11:21; Status DC Clindamycin Phosphate 50 ml @ As Directed STK-MED ONCE IV ; Start 12/22/18 at 12: 37; Stop 12/22/18 at 12:38; Status DC Clindamycin Phosphate 50 ml @ 100 mls/hr 1X ONCE IV Last administered on at 12:40; Start 12/22/18 at 13:15; Stop 12/22/18 at 13:44; Status DC Bupivacaine HCl (Sensorcaine Mpf 0.5%) 30 ml STK-MED ONCE .ROUTE Last administered on 12/22/18at 14:10; Start 12/22/18 at 13:54; Stop 12/22/18 at 13:55; Status DC Fentanyl Citrate (Fentanyl 2ml Vial) 100 mcg STK-MED ONCE .ROUTE ; Start at 13:59; Stop 12/22/18 at 14:00; Status DC Sevoflurane (Ultane) 60 ml STK-MED ONCE IH ; Start 12/22/18 at 14:03; Stop at 14:04; Status DC Cyclobenzaprine HCl (Flexeril) 10 mg PRN Q6HRS PRN PO MUSCLE SPASMS Last administered on 12/23/18at 16:55; Start 12/23/18 at 10:30 Lisinopril (Prinivil) 10 mg DAILY PO Last administered on 12/24/18at 08:10; Start 12/24/18 at 09:00 Carvedilol (Coreg) 3.125 mg BIDWMEALS PO Last administered on 12/24/18at 17:22; Start 12/23/18 at 17:00 Active Scripts Active Oxycodone Hcl 5 Mg Capsule 5 Mg PO Q4H PRN 30 Days Lisinopril 40 Mg Tablet 20 Mg PO DAILY 30 Days Meclizine Hcl 25 Mg Tablet 1 Tab PO Q8HRS PRN Reported Pravastatin Sodium 20 Mg Tablet 1 Tab PO DAILY Venlafaxine Hcl 37.5 Mg Tablet 1 Tab PO BID Children's Aspirin (Aspirin) 81 Mg Tab.chew 81 Mg PO DAILY Latanoprost 2.5 Ml Drops 1 Drop EACHEYE QHS Protonix (Pantoprazole Sodium) 20 Mg Tablet.dr 2 Tab PO DAILY Ferrous Gluconate 324 Mg Tablet 324 Mg PO DAILY Acetaminophen-Cod #3 Tablet (Acetaminophen/Codeine Phosphate) 1 Each Tablet 1 Tab PO PRN TID PRN Eye Drops (Tetrahydrozoline Hcl) 15 Ml Drops 15 Ml OP PRN Calcium + D3 Er Tablet (Calcium Carb & Cit/Vitamin D3) 1 Each Tablet.er 1 Each PO Alendronate Sodium 70 Mg Tablet 1 Tab PO WEEKLY Fluoxetine Hcl 10 Mg Capsule 10 Mg PO Vitals/I & O Vital Sign - Last 24 Hours 12/24/18 12/24/18 12/24/18 12/24/18 08:00 08:09 08:10 11:00 Temp 97.4 97.4 Pulse 62 62 60 Resp 18 B/P (MAP) 153/78 153/78 148/72 (97) Pulse Ox 100 O2 Delivery Room Air Room Air 12/24/18 12/24/18 12/24/18 12/24/18 15:00 17:22 19:43 20:00 Temp 97.7 98.8 97.7 98.8 Pulse 116 116 100 Resp 18 20 B/P (MAP) 130/61 (84) 130/61 129/67 (87) Pulse Ox 97 93 O2 Delivery Room Air Room Air Room Air 12/24/18 12/25/18 12/25/18 23:24 03:29 07:00 Temp 98.5 98.7 97.9 98.5 98.7 97.9 Pulse 102 100 103 Resp 20 20 20 B/P (MAP) 119/70 (86) 120/74 (89) 164/73 (103) Pulse Ox 92 93 95 O2 Delivery Room Air Room Air Room Air Intake and Output 12/24/18 12/24/18 12/25/18 14:59 22:59 06:59 Intake Total 0 ml 0 ml 240 ml Balance 0 ml 0 ml 240 ml MYCHAL ANAYA MD Dec 25, 2018 07:58
[2018-12-25] MEDS: VENLAFAXINE XR 37.5 MG CAP.ER.24H. PO SCH (08:00)
[2018-12-25] MEDS: FLUoxetine HCL 10 MG CAPSULE PO SCH (08:00)
[2018-12-25] MEDS: FERROUS SULFATE 325 MG TABLET. PO SCH (08:00)
[2018-12-25] MEDS: DOCUSATE SODIUM 100 MG CAPSULE. PO SCH (08:00)
[2018-12-25] MEDS: LISINOPRIL 10 MG TABLET PO SCH (08:00)
[2018-12-25] MEDS: CARVEDILOL 3.125 MG TABLET. PO SCH (08:01)
[2018-12-25] MEDS: ACETAMINOPHEN/CODEINE 300/30MG TABLET. PO PRN (08:01)
[2018-12-25] MEDS ORDERED: HEPA50003 SQ (09:51)
[2018-12-25] MEDS ORDERED: ACET1TAB33 PO (09:51)
[2018-12-25] MEDS ORDERED: DOCU-109 PO (09:51)
[2018-12-25] MEDS ORDERED: ACET325T9 PO (09:51)
[2018-12-25] MEDS ORDERED: CARV3.1210 PO (09:51)
[2018-12-25] MEDS ORDERED: CYCL10TA2 PO (09:51)
--- NOTE | 2018-12-25 09:53 | DISCH ---
DISCHARGE DISCHARGE INFORMATION: DISCHARGE DATE: Dec 25, 2018 CONDITION ON DISCHARGE: Stable CODE STATUS: Code Status: Full [facility]: SNF STAY <30 DAYS: Yes POST DISCHARGE ORDERS: ACTIVITY ORDERS: Other, see below (Non weight-bearing on right ankle 14 days) WEIGHT BEARING STATUS: Non weight bearing DIET AFTER DISCHARGE: Cardiac WOUND/INCISION CARE: Ice to area for comfort, Keep wound elevated CHECKS AFTER DISCHARGE: CHECKS AFTER DISCHARGE: Check blood press - daily FOLLOW-UP: PHYSICIAN FOLLOW-UP: Dr. Fabian - orthopedic surgery - 14 days TREATMENT/EQUIPMENT ORDERS: ADAPTIVE EQUIPMENT NEEDED: Walker Physical Therapy For: Evalulation/Treatment Occupational Therapy For: Evaluation/Treatment DISCHARGE MEDICATIONS: Home Meds Active Scripts Docusate Sodium (COLACE) 100 Mg Capsule, 100 MG PO BID for Constipation for 30 Days, #60 CAP Prov:MYCHAL ANAYA MD 12/25/18 Acetaminophen (TYLENOL) 325 Mg Tablet, 650 MG PO PRN Q6HRS PRN for Headaches, Temp > 101.5F for 30 Days, #120 TAB Prov:MYCHAL ANAYA MD 12/25/18 Carvedilol (CARVEDILOL ) 3.125 Mg Tablet, 3.125 MG PO BIDWMEALS for HTN for 30 Days, #60 TAB Prov:MYCHAL ANAYA MD 12/25/18 Heparin Sodium,Porcine (HEPARIN SODIUM) 5,000 Unit/1 Ml Vial, 5000 UNIT SQ Q8HRS for DVT PPX for 10 Days, #30 EACH Prov:MYCHAL ANAYA MD 12/25/18 Cyclobenzaprine Hcl (CYCLOBENZAPRINE HCL) 10 Mg Tablet, 5 MG PO PRN Q6HRS PRN for MUSCLE SPASMS for 10 Days, #20 TAB Prov:MYCHAL ANAYA MD 12/25/18 Acetaminophen With Codeine (ACETAMINOPHEN-COD #3 TABLET) 1 Each Tablet, 1 TAB PO PRN TID PRN for PAIN for 6 Days, #18 TAB Prov:MYCHAL ANAYA MD 12/25/18 Oxycodone Hcl (OXYCODONE HCL) 5 Mg Capsule, 5 MG PO Q4H PRN for PAIN for 30 Days , #180 TAB 0 Refills Prov:NEREIDA REID MD 11/11/18 Lisinopril (LISINOPRIL) 40 Mg Tablet, 20 MG PO DAILY for 30 Days, #15 TAB Prov:IVELISSE ISLAS MD 05/04/18 Meclizine Hcl (MECLIZINE HCL) 25 Mg Tablet, 1 TAB PO Q8HRS PRN for dizziness, # 30 TAB 30 Refills Prov:REANNA HEART DO 03/31/18 Reported Medications Pravastatin Sodium (PRAVASTATIN SODIUM) 20 Mg Tablet, 1 TAB PO DAILY for HLD, # 30 TAB 5 Refills 12/21/18 Venlafaxine Hcl (VENLAFAXINE HCL) 37.5 Mg Tablet, 1 TAB PO BID for pain or depression, #60 TAB 1 Refill 10/18/18 Aspirin (Children's Aspirin) 81 Mg Tab.chew, 81 MG PO DAILY, TAB.CHEW 05/03/18 Latanoprost (LATANOPROST) 2.5 Ml Drops, 1 DROP EACHEYE QHS, #7.5 ML 3 Refills 05/01/18 Pantoprazole Sodium (PROTONIX) 20 Mg Tablet.dr, 2 TAB PO DAILY, #30 TAB 05/01/18 Ferrous Gluconate (FERROUS GLUCONATE) 324 Mg Tablet, 324 MG PO DAILY, TAB 05/01/18 Tetrahydrozoline Hcl (EYE DROPS) 15 Ml Drops, 15 ML OP PRN for DRY EYE, DROP 05/01/18 Calcium Carb & Cit/Vitamin D3 (CALCIUM + D3 ER TABLET) 1 Each Tablet.er, 1 EACH PO, TAB.SR 05/01/18 Alendronate Sodium (ALENDRONATE SODIUM) 70 Mg Tablet, 1 TAB PO WEEKLY, #4 TAB 3 Refills 05/01/18 Fluoxetine Hcl (FLUOXETINE HCL) 10 Mg Capsule, 10 MG PO 11/04/13 Discontinued Reported Medications Atorvastatin Calcium (ATORVASTATIN CALCIUM) 20 Mg Tablet, 20 MG PO HS for FOR CHOLESTEROL, #30 TAB 0 Refills 10/18/18 MYCHAL ANAYA MD Dec 25, 2018 09:53
[2018-12-25 11:00] VITALS: BP 109/56
--- NOTE | 2018-12-25 11:32 | NUR ---
SW following. Discussed with RN, pt wanting to go to [facility]. SW faxed referral. [facility] has accepted pt. SW awaiting discharge paperwork to fax over for discharge to [facility] today. RN notified. [facility] will continue to follow.
--- NOTE | 2018-12-25 13:26 | NUR ---
SW following. [facility] will transport pt between 1430 and 1500. RN notified. Pt choice and rights signed and placed on chart.
[2018-12-25] MEDS: oxyCODONE IR 5 MG TABLET PO PRN (13:54)
--- NOTE | 2018-12-25 14:45 | NUR ---
Pt discharged to [facility] by w/ann marie mullins contracted by receiving facility. Report given to RISHI Lawton. One script sent with Pt. All belongings sent with Pt. No changes from previous assessment.
--- NOTE | 2018-12-25 20:42 | PDOC3 ---
Discharge Summary Visit Information Date of Admission: Dec 21, 2018 Date of Discharge: Dec 25, 2018 Admitting Diagnosis: Right ankle fracture Final Diagnosis Bimalleolar fracture right, traumatic, closed Mechanical fall CAD, heart murmur all chronic stable Htn CKD3 Anemia of CKD Brief Hospital Course Allergies Allergies Coded Allergies Type Severity Reaction Last Updated Verified Penicillins Allergy Intermediate 05/02/18 Yes Sulfa (Sulfonamide Antibiotics) Allergy Intermediate 11/04/13 Yes codeine Allergy Intermediate 11/09/18 Yes lidocaine Allergy Intermediate 05/02/18 Yes lovastatin Allergy Intermediate 05/02/18 Yes oxaprozin Allergy Intermediate 05/02/18 Yes quinine Allergy Intermediate 11/04/13 Yes Vital Signs Vital Signs Date Time Temp Pulse Resp B/P (MAP) Pulse Ox O2 Delivery O2 Flow Rate FiO2 12/25/18 13:54 93 Room Air 12/25/18 11:00 97.7 106 18 109/56 (73) 97.7 Brief Hospital Course Ms. Melendez is an 83 year old female with PMHx dementia, CKD3, anemia, heart murmur transferred from [facility] for ankle fracture bimalleolar and was s/p ORIF surgery 12/22/[address] Fabian. She experienced some muscle spasm and notably per PT her weakness will limit mobility and she was placed on non-weight -bearing status. 2 prior admits for falls to Rehab, had just got out of [facility] days before this incident, should benefit from SNU again Silvia reports a previous rehabilitation stay at [facility] and was just home a few days when this injury occurred. She is really not able to adequately safely transfer and ambulate without help at home and therefore a rehabilitation stay is planned. Ortho ok with d/c - with follow-up about 10-14 days for wound check staple removal and likely placement in a Cam Walker boot for protection, remaining nonweightbearing Greater than 30 minutes spent on discharge including coordinating ortho and SNF f/u. Discharge Information Condition at Discharge: Improved Follow Up: Weeks (2) Disposition/Orders: D/C to Another Facility ([facility] [place]) Scheduled Alendronate Sodium (Alendronate Sodium) 70 Mg Tablet, 1 TAB PO WEEKLY, #4 Ref 3 (Reported) Entered as Reported by: SHALONDA PENNY on 05/01/18 7444 Last Action: Converted on 12/21/181312 by IVELISSE ISLAS Aspirin (Children's Aspirin) 81 Mg Tab.chew, 81 MG PO DAILY, (Reported) Entered as Reported by: SOMMER ADHIKARI on 05/03/181950 Last Action: HELD on 12/21/181312 by IVELISSE ISLAS Carvedilol (Carvedilol ) 3.125 Mg Tablet, 3.125 MG PO BIDWMEALS for HTN for 30 Days, #60 Prescribed by: MYCHAL ANAYA MD on 12/25/18 0951 Docusate Sodium (Colace) 100 Mg Capsule, 100 MG PO BID for Constipation for 30 Days, #60 Prescribed by: MYCHAL ANAYA MD on 12/25/18 0951 Ferrous Gluconate (Ferrous Gluconate) 324 Mg Tablet, 324 MG PO DAILY, (Reported) Entered as Reported by: SHALONDA PENNY on 05/01/182337 Last Action: Converted on 12/21/181312 by IVELISSE ISLAS Heparin Sodium,Porcine (Heparin Sodium) 5,000 Unit/1 Ml Vial, 5,000 UNIT SQ Q8HRS for DVT PPX for 10 Days, #30 Prescribed by: MYCHAL ANAYA MD on 12/25/18 0951 Latanoprost (Latanoprost) 2.5 Ml Drops, 1 DROP EACHEYE QHS, #7.5 Ref 3 (Reported ) Entered as Reported by: SHALONDA PENNY on 05/01/182337 Last Action: Converted on 12/21/181312 by IVELISSE ISLAS Lisinopril (Lisinopril) 40 Mg Tablet, 20 MG PO DAILY for 30 Days, #15 Prescribed by: IVELISSE ISLAS on 05/04/18 0755 Last Action: Continued on 12/21/181312 by IVELISSE ISLAS Pantoprazole Sodium (Protonix) 20 Mg Tablet.dr, 2 TAB PO DAILY, #30 (Reported) Entered as Reported by: SHALONDA PENNY on 05/01/182337 Last Action: Converted on 12/21/181312 by IVELISSE ISLAS Pravastatin Sodium (Pravastatin Sodium) 20 Mg Tablet, 1 TAB PO DAILY for HLD, # 30 Ref 5 (Reported) Entered as Reported by: SYMONE GAGE on 12/21/181924 Last Taken: UNKNOWN on Unknown Date & Time Last Action: New Order on 12/21 by SYMONE GAGE Venlafaxine Hcl (Venlafaxine Hcl) 37.5 Mg Tablet, 1 TAB PO BID for pain or depression, #60 Ref 1 (Reported) Entered as Reported by: ALLISON DOWLING on 10/18/18 0324 Last Action: Converted on 12/21/181312 by IVELISSE ISLAS Scheduled PRN Acetaminophen (Tylenol) 325 Mg Tablet, 650 MG PO PRN Q6HRS PRN for Headaches, Temp > 101.5F for 30 Days, #120 Prescribed by: MYCHAL ANAYA MD on 12/25/18 0951 Acetaminophen With Codeine (Acetaminophen-Cod #3 Tablet) 1 Each Tablet, 1 TAB PO PRN TID PRN for PAIN for 6 Days, #18 Prescribed by: MYCHAL ANAYA MD on 12/25/18 0951 Cyclobenzaprine Hcl (Cyclobenzaprine Hcl) 10 Mg Tablet, 5 MG PO PRN Q6HRS PRN for MUSCLE SPASMS for 10 Days, #20 Prescribed by: MYCHAL ANAYA MD on 12/25/18 0951 Meclizine Hcl (Meclizine Hcl) 25 Mg Tablet, 1 TAB PO Q8HRS PRN for dizziness, # 30 Ref 30 Prescribed by: REANNA HEART D.O. on 03/31/18 0308 Last Action: Converted on 12/21/181312 by IVELISSE ISLAS Oxycodone Hcl (Oxycodone Hcl) 5 Mg Capsule, 5 MG PO Q4H PRN for PAIN for 30 Days , #180 Ref 0 Prescribed by: JEANETTE PADRON on 11/11/18 1155 Last Action: Converted on 12/21/181312 by IVELISSE ISLAS Tetrahydrozoline Hcl (Eye Drops) 15 Ml Drops, 15 ML OP for DRY EYE, (Reported) Entered as Reported by: SHALONDA PENNY on 05/01/18 0052 Last Action: Reviewed on 12/21/181312 by IVELISSE ISLAS Miscellaneous Medications Calcium Carb & Cit/Vitamin D3 (Calcium + D3 Er Tablet) 1 Each Tablet.er, 1 EACH PO, (Reported) Entered as Reported by: SHALONDA PENNY on 05/01/18 2338 Last Action: HELD on 12/21/18 1313 by IVELISSE ISLAS Fluoxetine Hcl (Fluoxetine Hcl) 10 Mg Capsule, 10 MG PO, (Reported) Entered as Reported by: CHERIE GUERRA on 11/04/13 0814 Last Action: Continued on 12/21/18 1313 by IVELISSE ISLAS Discontinued Medications Atorvastatin Calcium (Atorvastatin Calcium) 20 Mg Tablet, 20 MG PO HS for FOR CHOLESTEROL, #30 Ref 0 (Reported) Entered as Reported by: ALLISON DOWLING on 10/18/18 0324 Last Action: Discontinued on 12/21/181924 by MYCHAL GOMEZ MD Dec 25, 2018 20:42
[2018-12-28] MEDS ORDERED: NON FORMULARY ITEM (Alendronate Sodium 1 TAB) PO SCH (09:00)
== END 2018-12-25 14:45 | DRG 492 ==
LOC: 4 NORTH 10:01
PROVIDERS: ADMIT Internal Medicine; ATTEND Internal Medicine
PROC: 0QSJ04Z Reposition Right Fibula with Internal Fixation Device, Open Approach (ICD-10-PCS; 2018-12-22)
PROC: 0QSG04Z Reposition Right Tibia with Internal Fixation Device, Open Approach (ICD-10-PCS; principal; 2018-12-22 12:00)
DX: S82.841A Displaced bimalleolar fracture of right lower leg, initial encounter for closed fracture (principal); G93.41 Metabolic encephalopathy; D63.1 Anemia in chronic kidney disease; N18.3 Chronic kidney disease, stage 3 (moderate); I12.9 Hypertensive chronic kidney disease with stage 1 through stage 4 chronic kidney disease, or unspecified chronic kidney disease; I25.10 Atherosclerotic heart disease of native coronary artery without angina pectoris; E78.5 Hyperlipidemia, unspecified; F03.90 Unspecified dementia, unspecified severity, without behavioral disturbance, psychotic disturbance, mood disturbance, and anxiety; G62.9 Polyneuropathy, unspecified; K21.9 Gastro-esophageal reflux disease without esophagitis; F41.9 Anxiety disorder, unspecified; F32.9 Major depressive disorder, single episode, unspecified; M19.90 Unspecified osteoarthritis, unspecified site; R01.1 Cardiac murmur, unspecified; Z96.651 Presence of right artificial knee joint; W18.39XA Other fall on same level, initial encounter; Y93.89 Activity, other specified; Y92.009 Unspecified place in unspecified non-institutional (private) residence as the place of occurrence of the external cause; Y99.8 Other external cause status; Z90.710 Acquired absence of both cervix and uterus; Z88.6 Allergy status to analgesic agent; Z88.0 Allergy status to penicillin; Z88.2 Allergy status to sulfonamides; Z88.8 Allergy status to other drugs, medicaments and biological substances; Z82.49 Family history of ischemic heart disease and other diseases of the circulatory system; Z83.3 Family history of diabetes mellitus; Z82.0 Family history of epilepsy and other diseases of the nervous system; Z80.9 Family history of malignant neoplasm, unspecified; Z90.49 Acquired absence of other specified parts of digestive tract
CPT/HCPCS: 36415; 76000; 80048; 83735; 85025; 85610; A7015; C1713; J1100; J1644; J2001; J2405; J2704; J3010; J3490; 97530; 97535

== ENCOUNTER 2019-03-14 14:01 | Inpatient (IN) | payer MEDICARE ==
[~2019-03-14] VITALS: Ht 157.5 cm; Wt 59.4 kg
[~2019-03-14 14:01] MED LIST changes: +ACET325T9 PO; +CARV3.1210 PO; +CYCL10TA2 PO; +DOCU-109 PO; +HEPA50003 SQ; +PRAV20TA2 PO
[2019-03-14] MEDS ORDERED: CALC-483 PO (16:03)
[2019-03-14] MEDS ORDERED: MULT1TAB52 PO (16:03)
[2019-03-14] MEDS ORDERED: ACET-704 PO ×2 (16:03)
[2019-03-14] MEDS ORDERED: VENL150C PO (16:03)
[2019-03-14] MEDS ORDERED: VENL75CA PO (16:03)
[2019-03-14] MEDS ORDERED: LATA2.5D2 EACHEYE (16:03)
[2019-03-14] MEDS ORDERED: ACET325T9 PO ×2 (16:03→19:26)
[2019-03-14] MEDS ORDERED: FERR325T14 PO (16:03)
[2019-03-14] MEDS ORDERED: POTA20TA82 PO (16:03)
[2019-03-14 16:35] LABS: BASO # 0.1 x10^3/uL (0.0-0.2); BASO % 1 % (0-3); EOS # 0.3 x10^3/uL (0.0-0.7); EOS % 3 % (0-3); HEMATOCRIT 30.6 % (36.0-47.0); HEMOGLOBIN 9.9 g/dL (12.0-15.5); LYMPH # 1.7 x10^3/uL (1.0-4.8); LYMPH % 16 % (24-48); MEAN CORPUSCULAR HEMOGLOBIN 31 pg (25-35); MEAN CORPUSCULAR HGB CONC 32 g/dL (31-37); MEAN CORPUSCULAR VOLUME 96 fL (79-100); MONO # 0.7 x10^3/uL (0.0-1.1); MONO % 7 % (0-9); NEUT # 7.6 x10^3uL (1.8-7.7); NEUT % 73 % (31-73); PLATELET COUNT 331 x10^3/uL (140-400); RED BLOOD COUNT 3.19 x10^6/uL (3.50-5.40); RED CELL DISTRIBUTION WIDTH 13.9 % (11.5-14.5); WHITE BLOOD COUNT 10.4 x10^3/uL (4.0-11.0)
[2019-03-14 16:42] LABS: PROTHROMBIN TIME PATIENT 14.1 SEC (11.7-14.0)
[2019-03-14 16:48] LABS: CALCIUM 7.4 mg/dL (8.5-10.1); CREATININE 1.3 mg/dL (0.6-1.0); GFR 39.1; POTASSIUM 3.8 mmol/L (3.5-5.1)
[2019-03-14 16:57] LABS: ALBUMIN/GLOBULIN RATIO 0.7 (1.0-1.7); TOTAL BILIRUBIN 0.2 mg/dL (0.2-1.0); TOTAL PROTEIN 7.3 g/dL (6.4-8.2)
[2019-03-14] MEDS: CARVEDILOL 3.125 MG TABLET. PO SCH (17:22)
[2019-03-14] MEDS: ACETAMINOPHEN/CODEINE 300/30MG TABLET. PO PRN (18:13)
[2019-03-14 19:00] VITALS: BP 136/79
[2019-03-14] MEDS ORDERED: ACETAMINOPHEN 325 MG TABLET. PO PRN (19:30)
[2019-03-14] MEDS ORDERED: C.DIFF MED SCREEN BY RX. MC ONE (19:45)
[2019-03-14] MEDS ORDERED: ACETAMINOPHEN 325 MG TABLET. PO SCH (21:00)
[2019-03-14] MEDS: DOCUSATE SODIUM 100 MG CAPSULE. PO SCH (22:24)
[2019-03-14] MEDS: ATORVASTATIN CALCIUM 10 MG TABLET. PO SCH (22:24)
[2019-03-14] MEDS: VENLAFAXINE 75 MG TABLET. PO SCH (22:25)
[2019-03-14] MEDS: LATANOPROST 0.005% OPHTH SOLUTION 2.5ML BOTTLE. OU SCH (22:26)
[2019-03-14] MEDS: ACETAMINOPHEN/CODEINE 300/30MG TABLET. PO SCH (22:26)
[2019-03-14 23:00] VITALS: BP 148/90
[2019-03-15 03:00] VITALS: BP 135/79
[2019-03-15 07:00] VITALS: BP 147/83
[2019-03-15] MEDS ORDERED: PANTOPRAZOLE 40 MG TABLET.DR. PO SCH (07:30)
[2019-03-15] MEDS ORDERED: NON FORMULARY ITEM (Venlafaxine Hcl (Effexor Xr) 1 CAP) PO SCH (09:00)
--- NOTE | 2019-03-15 09:00 | NUR ---
Have changed bed to P500, pt transferred by staff as patient unable to make any significant moves without increasing pain. Heels floated. Call and phone within easy reach.
[2019-03-15] MEDS: ASPIRIN CHEWABLE 81 MG TABLET. PO SCH (09:33)
[2019-03-15] MEDS: VENLAFAXINE 75 MG TABLET. PO SCH ×3 (09:35→20:41)
[2019-03-15] MEDS: FERROUS SULFATE 325 MG TABLET. PO SCH (09:35)
[2019-03-15] MEDS: POTASSIUM CHLORIDE 20 MEQ TABLET.ER. PO SCH (09:35)
[2019-03-15] MEDS: ACETAMINOPHEN/CODEINE 300/30MG TABLET. PO SCH ×2 (09:36→16:36)
[2019-03-15] MEDS: DOCUSATE SODIUM 100 MG CAPSULE. PO SCH ×2 (09:37→20:41)
[2019-03-15] MEDS: CARVEDILOL 3.125 MG TABLET. PO SCH ×2 (09:37→16:35)
[2019-03-15] MEDS: FLUoxetine HCL 10 MG CAPSULE PO SCH (09:40)
[2019-03-15] MEDS: LISINOPRIL 20 MG TABLET PO SCH (09:40)
[2019-03-15] MEDS: CALCIUM CARB/VIT D3 500/200 TABLET. PO SCH (09:40)
[2019-03-15 11:00] VITALS: BP 124/63
--- NOTE | 2019-03-15 11:45 | NUR ---
Wound care: Patient seen per wound care consult. See wound assessment. patient has stage II pressure ulcer/intact blister to right heel. Wound cleansed and assessed. Recommendations for contact layer and foam dressing. Dressing applied and patient tolerated well. Dr. Erwin at bedside. No other wounds noted upon complete head to toe assessment. coccyx is reddened but remains blanchable, calazime cream applied. Patient is on a P-500 bed at this time. Patient educated on turning every 2 hours. Patient repositioned in bed and bilateral heels floated. Dressing change instructions left in room. Spoke with RN regarding POC. Will follow patient regarding wound care.
--- NOTE | 2019-03-15 12:25 | HP ---
ADMIT DATE: 03/14/2019 HISTORY OF PRESENT ILLNESS: The patient is an 83-year-old female patient, a resident at [facility], who was admitted recently after she fell. Her lower back pain has been extremely painful, has worsened. She was admitted to [facility] and was started on fentanyl patch and morphine. The patient became extremely confused, hallucinating, so we discontinued both of these. Unfortunately, the patient continued to have severe back pain, mostly in the lower back. We did switch her to Tylenol No. 3. However, she is pain free as long as she is lying in bed. At the moment, if she attempted to make any movement, her pain dramatically worsened. PAST MEDICAL HISTORY: Significant for hypertension, hyperlipidemia, gastroesophageal reflux disease, depression, history of breast cancer and chemotherapy-induced peripheral neuropathy. She was actually seen here before on 11/06/2018 and has had at that time, an MRI of the lumbar spine, which showed changes of degenerative disk disease are seen involving the lumbar spine. These findings are moderate to severe, right greater than left. Central spinal canal stenosis at L3-L4 and severe central spinal canal at L4-L5, mild right neural foraminal stenosis seen at L3-L4, no acute abnormalities seen. At that time, she was seen also by Dr. Stacy. At that time, he recommended that undergo lumbar epidural steroid injection, both as an inpatient and outpatient to see how she does with these as surgical intervention would require wide laminectomy at L4-L5 with a long instrumented fusion to help deal with the scoliosis. She has had the epidural injection without really much improvement and now the pain with every movement and turning in the bed induce severe pain. PAST SURGICAL HISTORY: Significant for total abdominal hysterectomy, bilateral salpingo-oophorectomy, bilateral mastectomy, right total knee arthroplasty. ALLERGIES: SHE IS ALLERGIC TO PENICILLIN. MEDICATIONS: She is currently on following medications: She is on ferrous sulfate 325 mg once a day, pravastatin sodium 20 mg at bedtime, carvedilol 3.125 mg twice a day, lisinopril 20 mg once a day, aspirin 81 mg once a day, acetaminophen with codeine 1 tablet twice a day, acetaminophen with codeine 1 tablet every 4 hours, Tylenol 650 mg 3 times a day, fluoxetine 10 mg daily, venlafaxine XR 75 mg daily and venlafaxine 150 mg daily, calcium carbonate with vitamin D 1 tablet daily. She is on potassium chloride 20 mEq once a day, latanoprost 1 drop to both eyes at bedtime. She is on Colace 100 mg twice a day, Protonix 40 mg once a day, multivitamin 1 tablet once a day. FAMILY HISTORY: Unremarkable. SOCIAL HISTORY: She was admitted directly from [facility] [place]; however, she normally lives with her son and [id number]. She is a former smoker, quit 35 years ago. She does not smoke, drink alcohol or use any recreational drugs. REVIEW OF SYSTEMS: As per history of present illness. PHYSICAL EXAMINATION GENERAL: When I examined her, she was pale, somewhat cachectic, but no jaundice or cyanosis. No lymphadenopathy, no thyromegaly. No jugular venous distension. No lower limb edema. VITAL SIGNS: Her heart rate was 92, blood pressure was 147/83, temperature was 98.1, respiratory rate was 18 and oxygen saturation was 94%. HEAD, EYES, EARS, NOSE AND THROAT: Showed normocephalic, atraumatic. NECK: Supple. HEART: Showed normal first and second heart sounds. No gallop, rub or murmur. CHEST: Clear to auscultation. No crepitation or rhonchi. ABDOMEN: Distended, soft, nontender. No guarding or rigidity. No organomegaly. All hernial orifices intact. Bowel sounds normal. NEUROLOGIC: She is awake, alert, responding appropriately. All cranial nerves intact. She moves upper extremities without difficulty. She is unable to turn or sit from the lying position or stand or walk because of severe back pain. She has peripheral neuropathy, and she has also a blister on her right heel. LABORATORY DATA: Showed a white cell count of 10,400, hemoglobin 10, hematocrit 30, MCV 96 and platelet count of 331,000. Her chemistry showed a serum sodium 142, potassium 3.8, chloride 105, bicarbonate 27, anion gap of 10, BUN 23, creatinine 1.3, estimated GFR was 39 mL per minute. Her glucose was 94, calcium was 7.4. Total bilirubin, AST, ALT, alkaline phosphatase were normal. Total protein was 7.3, albumin 3. Her prothrombin time was 14.1, INR 1.1. ASSESSMENT: My plan is to order the MRI of her lumbar spine. Continue with her current medication and consult Dr. Zackery Whatley to evaluate the patient again as her pain is now intractable and is severely limiting her ability to move. NEREIDA REID MD DR: LOLLY/bj JOB#: [id number] / [id number]
--- NOTE | 2019-03-15 13:49 | NUR ---
Pharmacy Medication Review S: Consulted for medication review re: C.diff Risk Assessment score of 4 O: BEL CASTELLANO is a 83 year old with: Previous C.diff infection: No Previous hospitalization: Within 30 days Recent antibiotics: No Use of gastric acid suppressor: No Transfer from [place]/[facility]: Yes Current antibiotic regimen: Current acid suppression regimen: A: Patient has been identified as having risk factors for C.diff infection as noted above. P: Antibiotic Regimen recommendation made: Patient not on abx. Probiotic ordered: Yes PPI changed to [id number]: Yes Eugenio Baron [facility], 03/15/19 [id number]
[2019-03-15 15:00] VITALS: BP 132/80
[2019-03-15] MEDS: FAMOTIDINE 20 MG TABLET. PO SCH (16:35)
--- NOTE | 2019-03-15 16:35 | NUR ---
SW following pt for anticipated dc needs. Chart reviewed. HOA confirmed with Natalie at [place] pt is [facility] resident and is able to return upon dc.
[2019-03-15] MEDS: MULTIVITAMIN with MINERAL TABLET. PO SCH (16:36)
[2019-03-15 19:00] VITALS: BP 138/66
[2019-03-15] MEDS: ATORVASTATIN CALCIUM 10 MG TABLET. PO SCH (20:41)
[2019-03-15] MEDS: LACTOBACILLUS RHAMNOSUS GG 1 CAPSULE. PO SCH (20:41)
[2019-03-15] MEDS: LATANOPROST 0.005% OPHTH SOLUTION 2.5ML BOTTLE. OU SCH (20:42)
[2019-03-15] MEDS: ACETAMINOPHEN/CODEINE 300/30MG TABLET. PO PRN (20:45)
[2019-03-15 23:00] VITALS: BP 137/68
--- NOTE | 2019-03-16 01:46 | PN ---
DATE: 03/15/2019 SUBJECTIVE: The patient is resting in her low air loss mattress, continued to complain of severe pain with every movement, even turning in the bed, but attempting to sit up. She is pain free when she is sitting still in her bed. Denied any other complaint. She was seen by the wound care team for blister in her right heel. PHYSICAL EXAMINATION: GENERAL: When I examined her, she looks pale, but no jaundice, cyanosis or thyromegaly. No jugular venous distension. No lower limb edema. VITAL SIGNS: Her heart rate was 93, blood pressure was 124/63, temperature was 98.4, respiratory rate was 18 and oxygen saturation was 96%. HEAD, EYES, EARS, NOSE AND THROAT: Showed normocephalic and atraumatic. NECK: Supple. HEART: Showed normal first and second heart sounds. No gallop, rub or murmur. CHEST: Clear to auscultation. No crepitation or rhonchi. ABDOMEN: Scaphoid, soft and nontender. NEUROLOGIC: She is awake, alert and responding appropriately. All cranial nerves are intact. She moves upper extremities without difficulty. She continued to experience severe pain. PLAN: We have already resumed all her medication, ordered an MRI and consulted the neurosurgical team. NEREIDA REID MD DR: LOLLY/bj JOB#: [id number] / [id number]
[2019-03-16 03:00] VITALS: BP 144/71
[2019-03-16] MEDS: ACETAMINOPHEN/CODEINE 300/30MG TABLET. PO PRN (05:14)
[2019-03-16 07:00] VITALS: BP 154/78
[2019-03-16] MEDS: FAMOTIDINE 20 MG TABLET. PO SCH (08:18)
[2019-03-16] MEDS: DOCUSATE SODIUM 100 MG CAPSULE. PO SCH ×2 (08:18→20:39)
[2019-03-16] MEDS: FLUoxetine HCL 10 MG CAPSULE PO SCH (08:18)
[2019-03-16] MEDS: LACTOBACILLUS RHAMNOSUS GG 1 CAPSULE. PO SCH ×2 (08:18→20:39)
[2019-03-16] MEDS: FERROUS SULFATE 325 MG TABLET. PO SCH (08:18)
[2019-03-16] MEDS: MULTIVITAMIN with MINERAL TABLET. PO SCH (08:19)
[2019-03-16] MEDS: POTASSIUM CHLORIDE 20 MEQ TABLET.ER. PO SCH (08:19)
[2019-03-16] MEDS: ASPIRIN CHEWABLE 81 MG TABLET. PO SCH (08:19)
[2019-03-16] MEDS: CALCIUM CARB/VIT D3 500/200 TABLET. PO SCH (08:19)
[2019-03-16] MEDS: CARVEDILOL 3.125 MG TABLET. PO SCH ×2 (08:20→17:16)
[2019-03-16] MEDS: LISINOPRIL 20 MG TABLET PO SCH (08:20)
[2019-03-16] MEDS: VENLAFAXINE 75 MG TABLET. PO SCH ×3 (09:55→20:39)
[2019-03-16] MEDS: ACETAMINOPHEN/CODEINE 300/30MG TABLET. PO SCH ×2 (09:55→17:15)
[2019-03-16 11:00] VITALS: BP 142/72
--- NOTE | 2019-03-16 12:56 | NUR ---
SS following up with discharge planning. SS phoned and faxed clinical updates to [facility], ; fax [phone]. Pt is from [facility] and is able to return when medically stable for discharge.
--- NOTE | 2019-03-16 13:46 | PDOC ---
Provider Note Provider Note Patient seen and examined at 1150 back and right leg pain multiple falls strength normal in LE, positive SLR on the right Lumbar MRI pending will follow SHAHRAM JUSTIN MD March 16, 2019 13:46
[2019-03-16 15:00] VITALS: BP 127/70
--- NOTE | 2019-03-16 16:09 | RAD ---
MRI of the lumbar spine without contrast 03/16/2019 CLINICAL HISTORY: Intractable low back pain. TECHNIQUE: Unenhanced T1-weighted, T2-weighted and inversion recovery sagittal and T1-weighted and T2-weighted axial images of the lumbar spine were obtained. FINDINGS: Comparison study is dated 11/07/2018. Moderate to severe S-shaped curvature of the thoracolumbar spine is seen. Mild anterolisthesis of L4 in relation to L5 is noted. Degenerative signal changes and loss of height are seen involving all of the disks of the lumbar spine. Degenerative signal changes are seen within the marrow surrounding these discs. The conus medullaris is normal morphology, position, and signal characteristics. At the L1-2 disc space there is a mild generalized disc bulge. Degenerative changes are seen involving the facet joints bilaterally. There is moderate ligamentum flavum hypertrophy bilaterally. These findings when combined result in mild central spinal canal stenosis. No neural foraminal stenosis is seen. At the L2-3 disc space there is a mild generalized disc bulge. This eccentric to the right. Degenerative changes are seen involving the facet joints, right greater than left. There is mild ligamentum flavum hypertrophy bilaterally. These findings when combined result in mild right-sided central spinal canal stenosis. Mild right neural foraminal stenosis is seen. The left neural foramen is patent. At the L3-4 disc space there is a mild to moderate generalized disc bulge. Degenerative changes are seen involving the facet joints bilaterally. There is a small to moderate-sized right facet joint effusion. These findings when combined result in moderate to severe central spinal canal stenosis. Moderate right neural foraminal stenosis is seen. The left neural foramen is patent. At the L4-5 disc space there is a moderate generalized disc bulge. This is eccentric to the right. Degenerative changes are seen involving the facet joints bilaterally. There is moderate ligament flavum hypertrophy bilaterally. There are small facet joint effusions, right greater than left. These findings when combined result in severe central spinal canal stenosis. Moderate to severe right greater than left neural foraminal stenosis is seen. At the L5-S1 disc space there is a mild to moderate generalized disc bulge. This eccentric to the left. Degenerative changes are seen involving the facet joints bilaterally. These findings when combined do not result in significant central spinal canal or neural foraminal stenosis. Since the previous examination there has been no significant interval change. IMPRESSION: The changes of degenerative disc disease are seen throughout the lumbar spine. These findings results in mild central spinal canal stenosis at L1-2, mild right-sided central spinal canal stenosis at L2-3, moderate to severe central spinal canal stenosis at L3-4 and severe central spinal canal stenosis at L4-5. Mild right neural foraminal stenosis is seen at L2-3. Moderate right neural foraminal stenosis is seen at L3-4. Moderate to severe right greater than left neural foraminal stenosis is seen at L4-5. Electronically signed by: Armando Joy MD (03/16/2019 4:07 PM) [id number]
[2019-03-16] MEDS ORDERED: methylPREDNISolone SOD SUCC PF 40 MG/ML VIAL. IV ONE ×2 (16:45)
[2019-03-16] MEDS ORDERED: BUPIVACAINE MPF 0.25% 10 ML VIAL. IJ ONE (16:45)
--- NOTE | 2019-03-16 16:53 | PDOC ---
Provider Note Provider Note Reviewed Lumbar MRI there is multilevel stenosis both central canal and foraminal, additionally there is severe lumbar scoliosis She is not a good surgical candidate for extensive lumbar surgery I would recommend conservative treatments with Physical therapy and Epidural steroid injections call with questions SHAHRAM JUSTIN MD March 16, 2019 16:53
--- NOTE | 2019-03-16 17:32 | PN ---
DATE: 03/16/2019 SUBJECTIVE: The patient is resting, slightly propped up in bed, continued to complain of severe pain in her lower back with any movement. Unfortunately, the MRI was not done, although, it was approved by Dr. Stacy. PHYSICAL EXAMINATION: GENERAL: When I examined her, she looked well and was clearly in no apparent respiratory distress, pale, no jaundice, cyanosis or thyromegaly. No jugular venous distension. No lower limb edema. VITAL SIGNS: Her heart rate was 87, blood pressure 154/78, temperature 98.1, respiratory rate 15 and oxygen saturation was 95%. HEAD, EYES, EARS, NOSE AND THROAT: Normocephalic, atraumatic. NECK: Supple. HEART: Showed normal first and second heart sounds with no gallop, rub or murmur. CHEST: Clear to auscultation. No crepitation or rhonchi. ABDOMEN: Distended, soft, nontender. NEUROLOGIC: She was awake, alert, responding appropriately. All cranial nerves are intact. She moves her upper extremities without difficulty; however, any movement, even changing her position induces severe back pain. Her intake was 318, no output was recorded. Her lab work is stable. ASSESSMENT: Intractable low back pain. PLAN: Await the results of the MRI and the evaluation by Dr. Stacy. NEREIDA REID MD DR: LOLLY/bj JOB#: [id number] / [id number]
[2019-03-16 19:00] VITALS: BP 136/81
[2019-03-16] MEDS: ATORVASTATIN CALCIUM 10 MG TABLET. PO SCH (20:39)
[2019-03-16] MEDS: LATANOPROST 0.005% OPHTH SOLUTION 2.5ML BOTTLE. OU SCH (20:40)
[2019-03-16 23:00] VITALS: BP 130/75
--- NOTE | 2019-03-17 01:35 | CONS ---
DATE OF CONSULTATION: 03/16/2019 ATTENDING PHYSICIAN: Dr. Erwin. REASON FOR CONSULTATION: The patient was seen at the request of Dr. Stacy for rehab evaluation. HISTORY OF PRESENT ILLNESS: This is an 83-year-old female. The patient is a resident of [facility] on and off, had residency sustained fracture of right ankle, for which she had open reduction and internal fixation done by Dr. Fabian in November of this year. The patient was admitted with severe back pain interfering with her mobility and self-care. She was admitted to [facility] and was started on fentanyl patch and morphine, which made her confused and hallucinating. So, they were discontinued. The patient continued to have pain mainly with movement. The patient with known hypertension, hyperlipidemia, gastroesophageal reflux disease, depression, history of carcinoma of breast and chemotherapy-induced peripheral neuropathy. The patient was in this medical center in October of this year. At that time, MRI scan of her lumbar vertebrae and cervical vertebrae revealed multilevel degenerative disk disease and degenerative joint disease of lumbar vertebrae with spinal stenosis and neural foraminal compromise in the lumbar area. The patient had tried lumbar epidural steroid injection, which irritated rather than helping. Dr. Stacy felt like she requires wide laminectomy at L4-L5 with long instrumented fusion to help deal with her scoliosis. The patient also had total abdominal hysterectomy and bilateral salpingo-oophorectomy, bilateral mastectomy and right total knee arthroplasties. She admits pain in her right knee. ALLERGIES: SHE IS KNOWN ALLERGIC TO PENICILLIN, SULFA, LIDOCAINE, LOVASTATIN, OXAPROZIN AND QUININE. When I saw her in October, I had injected painful right sacroiliac joint area with Depo-Medrol and Marcaine solution. She also had gone through lumbar epidural steroid injection at that time. The patient denies any significant neck pain. She admits some stiffness and pain in right shoulder area. The patient admits some stiffness in her right ankle and she had blistered right heel. PHYSICAL EXAMINATION: Today revealed an elderly female. She is alert; oriented to time, place, person and circumstance and follows commands appropriately. Moves all 4 extremities voluntarily, where she had 4+/5 grade muscle strength, except relative weakness of right shoulder abductors and hand intrinsic muscles. She had some muscle atrophy involving hand intrinsic muscles and also deformities of both thumbs secondary to degenerative changes at thumb carpometacarpal joints bilaterally. Negative Tinel sign over median nerve at the wrist and over ulnar nerve at the wrist and elbow. She had decreased sensory perception in her lower extremities. Deep tendon reflexes are decreased at her knees, absent at both ankles. She had pain-free range of motion of both lower extremity joints. She had dressing to her right heel. She had tenderness to palpation over right sacroiliac joint area, right lumbar paraspinal muscles and right trochanteric bursa. She admits pain while trying to roll from side to side, so I have not tested her transfers or ambulation skills at this time. ASSESSMENT: An elderly female with chronic lower back pain from degenerative disk disease and degenerative joint disease of lumbar vertebrae, without any clinical evidence of ongoing lumbar radiculopathy, but radiological evidence of lumbar spinal stenosis. The patient also presents with right trochanteric bursitis; peripheral neuropathy, chemotherapy induced; degenerative joint disease of right shoulder with partial rotator cuff lesions and mild degree of adhesive capsulitis, right shoulder; chronic right knee pain, status post right total knee arthroplasty and degenerative joint disease of left knee without any pain, status post recent fall in November and fractured right ankle, status post open reduction and internal fixation with some stiffness of right ankle and right heel blister. The patient with known hypertension, hyperlipidemia, gastroesophageal reflux disease, depression, carcinoma of breast and also degenerative joint disease changes at both thumb carpometacarpal joints. RECOMMENDATIONS: To proceed with injecting painful right trochanteric bursa and right sacroiliac joint area to help ease her pain, to get her up as tolerated with a small abdominal binder as lumbar corset. Dr. Stacy, I appreciate asking me to participate in the care of this interesting patient. I will be glad to follow her with you as needed for her rehabilitation. OTILIA PISANO MD DR: PAWAN/bj JOB#: [id number] / [id number]
[2019-03-17 03:00] VITALS: BP 167/87
[2019-03-17] MEDS: ACETAMINOPHEN/CODEINE 300/30MG TABLET. PO PRN ×2 (03:39→13:37)
[2019-03-17 05:51] LABS: HEMATOCRIT 29.3 % (36.0-47.0); HEMOGLOBIN 9.8 g/dL (12.0-15.5); RED BLOOD COUNT 3.08 x10^6/uL (3.50-5.40); RED CELL DISTRIBUTION WIDTH 13.9 % (11.5-14.5); WHITE BLOOD COUNT 9.6 x10^3/uL (4.0-11.0)
[2019-03-17 06:15] LABS: ALBUMIN 2.8 g/dL (3.4-5.0); ALBUMIN/GLOBULIN RATIO 0.7 (1.0-1.7); CALCIUM 8.2 mg/dL (8.5-10.1); CREATININE 1.2 mg/dL (0.6-1.0); GFR 42.9; POTASSIUM 4.1 mmol/L (3.5-5.1); TOTAL BILIRUBIN 0.2 mg/dL (0.2-1.0)
[2019-03-17 07:00] VITALS: BP 154/93
[2019-03-17] MEDS: ACETAMINOPHEN/CODEINE 300/30MG TABLET. PO SCH ×2 (08:44→20:53)
[2019-03-17] MEDS: POTASSIUM CHLORIDE 20 MEQ TABLET.ER. PO SCH (08:44)
[2019-03-17] MEDS: FLUoxetine HCL 10 MG CAPSULE PO SCH (08:44)
[2019-03-17] MEDS: VENLAFAXINE 75 MG TABLET. PO SCH ×3 (08:44→20:52)
[2019-03-17] MEDS: DOCUSATE SODIUM 100 MG CAPSULE. PO SCH ×2 (08:44→20:52)
[2019-03-17] MEDS: LACTOBACILLUS RHAMNOSUS GG 1 CAPSULE. PO SCH ×2 (08:44→20:51)
[2019-03-17] MEDS: CALCIUM CARB/VIT D3 500/200 TABLET. PO SCH (08:45)
[2019-03-17] MEDS: MULTIVITAMIN with MINERAL TABLET. PO SCH (08:45)
[2019-03-17] MEDS: FAMOTIDINE 20 MG TABLET. PO SCH (08:45)
[2019-03-17] MEDS: ASPIRIN CHEWABLE 81 MG TABLET. PO SCH (08:45)
[2019-03-17] MEDS: LISINOPRIL 20 MG TABLET PO SCH (08:45)
[2019-03-17] MEDS: FERROUS SULFATE 325 MG TABLET. PO SCH (08:45)
[2019-03-17] MEDS: CARVEDILOL 3.125 MG TABLET. PO SCH ×2 (08:45→18:07)
[2019-03-17 11:00] VITALS: BP 152/87
--- NOTE | 2019-03-17 11:47 | PDOC ---
PROGRESS NOTES Subjective Subjective She admits some help with injections but continues with severe pain with movement of her low back. Objective Objective Vital Signs Date Time Temp Pulse Resp B/P (MAP) Pulse Ox O2 Delivery O2 Flow Rate FiO2 03/17/19 11:00 99.0 87 16 152/87 (108) 96 Room Air 99.0 Intake and Output 03/17/19 07:00 # Voids 2 # Bowel Movements 2 Physical Exam Physical Exam She is supine in bed and did not eat any breakfast this AM. She continues with painfully limited lumbar spine ROM with tenderness to palpation over sacroiliac joint and right trochanteric bursa.I spoke to Vanessa and Regis. Plan Plan of Care To ask to try lumbar epidural steroid injections or facet joint blocks or radiofrequency ablation as is hesitant to proceed with decompression laminectomy as she had significant spondylolisthesis. Comment Review of Relevant I have reviewed the following items ingrid (where applicable) has been applied. Labs Laboratory Tests Test 03/17/19 05:00 White Blood Count 9.6 x10^3/uL (4.0-11.0) Red Blood Count 3.08 x10^6/uL (3.50-5.40) Hemoglobin 9.8 g/dL (12.0-15.5) Hematocrit 29.3 % (36.0-47.0) Mean Corpuscular Volume 95 fL (79-100) Mean Corpuscular Hemoglobin 32 pg (25-35) Mean Corpuscular Hemoglobin Concent 33 g/dL (31-37) Red Cell Distribution Width 13.9 % (11.5-14.5) Platelet Count 335 x10^3/uL (140-400) Sodium Level 140 mmol/L (136-145) Potassium Level 4.1 mmol/L (3.5-5.1) Chloride Level 105 mmol/L (98-107) Carbon Dioxide Level 24 mmol/L (21-32) Anion Gap 11 (6-14) Blood Urea Nitrogen 25 mg/dL (7-20) Creatinine 1.2 mg/dL (0.6-1.0) Estimated GFR (Cockcroft-Gault) 42.9 BUN/Creatinine Ratio 21 (6-20) Glucose Level 120 mg/dL (70-99) Calcium Level 8.2 mg/dL (8.5-10.1) Total Bilirubin 0.2 mg/dL (0.2-1.0) Aspartate Amino Transf (AST/SGOT) 18 U/L (15-37) Alanine Aminotransferase (ALT/SGPT) 15 U/L (14-59) Alkaline Phosphatase 56 U/L (46-116) Total Protein 7.0 g/dL (6.4-8.2) Albumin 2.8 g/dL (3.4-5.0) Albumin/Globulin Ratio 0.7 (1.0-1.7) Laboratory Tests Test 03/17/19 05:00 White Blood Count 9.6 x10^3/uL (4.0-11.0) Red Blood Count 3.08 x10^6/uL (3.50-5.40) Hemoglobin 9.8 g/dL (12.0-15.5) Hematocrit 29.3 % (36.0-47.0) Mean Corpuscular Volume 95 fL (79-100) Mean Corpuscular Hemoglobin 32 pg (25-35) Mean Corpuscular Hemoglobin Concent 33 g/dL (31-37) Red Cell Distribution Width 13.9 % (11.5-14.5) Platelet Count 335 x10^3/uL (140-400) Sodium Level 140 mmol/L (136-145) Potassium Level 4.1 mmol/L (3.5-5.1) Chloride Level 105 mmol/L (98-107) Carbon Dioxide Level 24 mmol/L (21-32) Anion Gap 11 (6-14) Blood Urea Nitrogen 25 mg/dL (7-20) Creatinine 1.2 mg/dL (0.6-1.0) Estimated GFR (Cockcroft-Gault) 42.9 BUN/Creatinine Ratio 21 (6-20) Glucose Level 120 mg/dL (70-99) Calcium Level 8.2 mg/dL (8.5-10.1) Total Bilirubin 0.2 mg/dL (0.2-1.0) Aspartate Amino Transf (AST/SGOT) 18 U/L (15-37) Alanine Aminotransferase (ALT/SGPT) 15 U/L (14-59) Alkaline Phosphatase 56 U/L (46-116) Total Protein 7.0 g/dL (6.4-8.2) Albumin 2.8 g/dL (3.4-5.0) Albumin/Globulin Ratio 0.7 (1.0-1.7) Medications Current Medications Acetaminophen (Tylenol) 650 mg TID PO ; Start 03/14/19 at 21:00; Status Cancel Acetaminophen/ Codeine Phosphate (Tylenol #3) 1 tab BID PO Last administered on 03/17/19 08:44; Start 03/14/19 at 21:00 Acetaminophen/ Codeine Phosphate (Tylenol #3) 1 tab PRN Q4HRS PRN PO MODERATE- SEVERE PAIN Last administered on 03/17/19 03:39; Start 03/14/19 at 16:30 Aspirin (Children'S Aspirin) 81 mg DAILY PO Last administered on 03/17/19 08:45; Start 03/15/19 at 09:00 Carvedilol (Coreg) 3.125 mg BIDWMEALS PO Last administered on 03/17/19 08:45; Start 03/14/19 at 17:00 Docusate Sodium (Colace) 100 mg BID PO Last administered on 03/17/19 08:44; Start 03/14/19 at 21:00 Ferrous Sulfate (Feosol) 325 mg DAILY PO Last administered on 03/17/19 08:45; Start 03/15/19 at 09:00 Fluoxetine HCl (PROzac) 10 mg DAILY PO Last administered on 03/17/19 08:44; Start 03/15/19 at 09:00 Lisinopril (Prinivil) 20 mg DAILY PO Last administered on 03/17/19 08:45; Start 03/15/19 at 09:00 Calcium/Vitamin D (Oscal D 500mg/ 200uts) 1 tab DAILYWBKFT PO Last administered on 03/17/19 08:45; Start 03/15/19 at 08:00 Latanoprost (Xalatan) 1 drop QHS OU Last administered on 03/16/19 20:40; Start 03/14/19 at 21:00 Multivitamins (Thera M Plus) 1 tab DAILY PO Last administered on 03/17/19 08:45; Start 03/15/19 at 09:00 Pantoprazole Sodium (Protonix) 40 mg DAILYAC PO Last administered on 03/15/19 09:34; Start 03/15/19 at 07:30; Stop 03/15/19 at 13:45; Status DC Potassium Chloride (Klor-Con) 20 meq DAILYWBKFT PO Last administered on 03/17/19at 08:44; Start 03/15/19 at 08:00 Atorvastatin Calcium (Lipitor) 5 mg QHS PO Last administered on 03/16/19at 20:39; Start 03/14/19 at 21:00 Venlafaxine HCl (Effexor) 75 mg TID PO Last administered on 03/17/19at 08:44; Start 03/14/19 at 21:00 Non-Formulary Medication (Venlafaxine Hcl (Effexor Xr)) 1 cap DAILY PO ; Start 03/15/19 at 09:00; Status UNV Acetaminophen (Tylenol) 650 mg PRN TID PRN PO MILD PAIN 1-3; Start 03/14/19 at 19:30 Pharmacy Consult (C.diff Med Screen By Rx) 1 each 1X ONCE [facility] ; Start 03/14/19 at 19:45; Stop 03/14/19 at 19:47; Status DC Lactobacillus Rhamnosus (Culturelle) 1 cap BID PO Last administered on 03/17/19at 08:44; Start 03/15/19 at 21:00 Famotidine (Pepcid) 20 mg DAILY PO Last administered on 03/17/19at 08:45; Start 03/15/19 at 14:00 Methylprednisolone Sodium Succinate (SOLU-Medrol 40MG VIAL) 40 mg 1X ONCE IV Last administered on 03/16/19 16:45; Start 03/16/19 at 16:45; Stop 03/16/19 at 16:53; Status DC Methylprednisolone Sodium Succinate (SOLU-Medrol 40MG VIAL) 40 mg 1X ONCE IV Last administered on 03/16/19at 16:45; Start 03/16/19 at 16:45; Stop 03/16/19 at 16:53; Status DC Bupivacaine HCl (Sensorcaine-Mpf 0.25%) 10 ml 1X ONCE IJ Last administered on 03/16/19at 16:45; Start 03/16/19 at 16:45; Stop 03/16/19 at 16:53; Status DC Active Scripts Active Colace (Docusate Sodium) 100 Mg Capsule 100 Mg PO BID 30 Days Carvedilol (Carvedilol) 3.125 Mg Tablet 3.125 Mg PO BIDWMEALS 30 Days Lisinopril 40 Mg Tablet 20 Mg PO DAILY 30 Days Reported Tylenol (Acetaminophen) 325 Mg Tablet 2 Tab PO PRN TID PRN Tylenol With Codeine #3 Tablet (Acetaminophen/Codeine Phosphate) 1 Each Tablet 1 Tab PO PRN Q4HRS PRN Potassium Chloride 20 Meq Tablet.er 20 Meq PO DAILY Tylenol With Codeine #3 Tablet (Acetaminophen/Codeine Phosphate) 1 Each Tablet 1 Tab PO BID Xalatan (Latanoprost) 2.5 Ml Drops 1 Drop EACHEYE QHS Calcium 500 mg Chewable Tablet (Calcium Carbonate/Vitamin D3) 1 Each Tab.chew 1 Each PO DAILY Multivitamins (Multivitamin) 1 Each Tablet 1 Tab PO DAILY Ferrous Sulfate 325 Mg Tablet 1 Tab PO DAILY Effexor Xr (Venlafaxine Hcl) 150 Mg Cap.er.24h 1 Cap PO DAILY Effexor Xr (Venlafaxine Hcl) 75 Mg Cap.er.24h 1 Cap PO DAILY Pravastatin Sodium 20 Mg Tablet 1 Tab PO HS Children's Aspirin (Aspirin) 81 Mg Tab.chew 81 Mg PO DAILY Protonix (Pantoprazole Sodium) 20 Mg Tablet.dr 2 Tab PO DAILY Fluoxetine Hcl 10 Mg Capsule 10 Mg PO DAILY Vitals/I & O Vital Sign - Last 24 Hours 03/16/19 03/16/19 03/16/19 03/16/19 15:00 17:15 17:16 18:22 Temp 98.5 98.5 Pulse 90 90 Resp 18 B/P (MAP) 127/70 (89) 127/70 Pulse Ox 95 O2 Delivery Room Air Room Air Room Air 03/16/19 03/16/19 03/16/19 03/17/19 19:00 19:30 23:00 03:00 Temp 98.8 98.8 98.6 98.8 98.8 98.6 Pulse 117 84 100 Resp 18 18 18 B/P (MAP) 136/81 (99) 130/75 (93) 167/87 (113) Pulse Ox 96 97 97 O2 Delivery Room Air Room Air Room Air Room Air 03/17/19 03/17/19 03/17/19 03/17/19 03:39 04:45 07:00 08:00 Temp 98.2 98.2 Pulse 101 Resp 16 14 14 B/P (MAP) 154/93 (113) Pulse Ox 97 97 92 O2 Delivery Room Air Room Air Room Air Room Air 03/17/19 03/17/19 03/17/19 03/17/19 08:44 08:45 08:45 11:00 Temp 99.0 99.0 Pulse 101 101 87 Resp 16 B/P (MAP) 154/93 154/93 152/87 (108) Pulse Ox 96 O2 Delivery Room Air Room Air OTILIA PISANO MD March 17, 2019 11:47
[2019-03-17 15:00] VITALS: BP 145/74
[2019-03-17 19:00] VITALS: BP 109/67
[2019-03-17] MEDS: ATORVASTATIN CALCIUM 10 MG TABLET. PO SCH (20:51)
[2019-03-17] MEDS: LATANOPROST 0.005% OPHTH SOLUTION 2.5ML BOTTLE. OU SCH (20:53)
--- NOTE | 2019-03-17 21:12 | PN ---
DATE: 03/17/2019 SUBJECTIVE: The patient is resting, slightly propped up in bed, in no apparent respiratory distress. She continued to complain of severe pain with any movement. She was seen yesterday by Dr. Ureña and he injected her right trochanteric bursa of the right sacroiliac joint. Apparently, Dr. Stacy seen her and according to him she is not a good surgical candidate for extensive lumbar surgery and recommended conservative treatment with physical therapy and epidural steroid injection. PHYSICAL EXAMINATION: GENERAL: When I saw her this morning, she looked pale, but not jaundiced or cyanosed from thyromegaly. No jugular venous distention. No limb edema. VITAL SIGNS: Her heart rate was 101, blood pressure was 154/93, temperature was 98.2, respiratory rate was 14 and oxygen saturation was 92%. HEAD, EYES, EARS, NOSE AND THROAT: Showed normocephalic, atraumatic. NECK: Supple. HEART: Showed normal first and second heart sounds. No gallop, rub or murmur. CHEST: Clear to auscultation. No crepitation or rhonchi. ABDOMEN: Scaphoid, soft, nontender. NEUROLOGIC: She is awake, alert, responding appropriately. All her cranial nerves intact. She moves upper extremities to much good extent than lower extremities. LABORATORY WORK: Showed that her white cell count was 9600; hemoglobin 10; hematocrit 29; MCV 95; platelet count 335,000. Her chemistry showed a serum sodium of 140, potassium 4.1, chloride 105, bicarbonate 24, anion gap of 11, BUN 25, creatinine 1.2, estimated GFR was 43 mL per minute. Her glucose was 120, calcium was 8.2. Total bilirubin, AST, ALT, alkaline phosphatase were normal. Total protein was 7, albumin was 2.8. 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 She apparently is not a good surgical candidate for extensive lumbar surgery. The patient has multiple other medical problems including hypertension, hyperlipidemia, gastroesophageal reflux disease, depression, history of breast cancer and chemotherapy-induced peripheral neuropathy. NEREIDA REID MD DR: LOLLY/bj JOB#: [id number] / [id number]
[2019-03-17 23:00] VITALS: BP 122/68
[2019-03-18] MEDS: ACETAMINOPHEN/CODEINE 300/30MG TABLET. PO PRN ×2 (01:03→17:37)
[2019-03-18 03:00] VITALS: BP 139/71
[2019-03-18 07:00] VITALS: BP 140/86
[2019-03-18] MEDS: ACETAMINOPHEN/CODEINE 300/30MG TABLET. PO SCH ×2 (09:01→21:31)
[2019-03-18] MEDS: POTASSIUM CHLORIDE 20 MEQ TABLET.ER. PO SCH (09:01)
[2019-03-18] MEDS: FERROUS SULFATE 325 MG TABLET. PO SCH (09:02)
[2019-03-18] MEDS: DOCUSATE SODIUM 100 MG CAPSULE. PO SCH ×2 (09:02→21:31)
[2019-03-18] MEDS: LACTOBACILLUS RHAMNOSUS GG 1 CAPSULE. PO SCH ×2 (09:02→21:30)
[2019-03-18] MEDS: FLUoxetine HCL 10 MG CAPSULE PO SCH (09:02)
[2019-03-18] MEDS: MULTIVITAMIN with MINERAL TABLET. PO SCH (09:02)
[2019-03-18] MEDS: CARVEDILOL 3.125 MG TABLET. PO SCH ×2 (09:02→16:39)
[2019-03-18] MEDS: ASPIRIN CHEWABLE 81 MG TABLET. PO SCH (09:03)
[2019-03-18] MEDS: LISINOPRIL 20 MG TABLET PO SCH (09:03)
[2019-03-18] MEDS: FAMOTIDINE 20 MG TABLET. PO SCH (09:03)
[2019-03-18] MEDS: CALCIUM CARB/VIT D3 500/200 TABLET. PO SCH (09:03)
[2019-03-18] MEDS: VENLAFAXINE 75 MG TABLET. PO SCH ×3 (09:03→21:31)
[2019-03-18 11:00] VITALS: BP 135/78
[2019-03-18 15:00] VITALS: BP 138/82
[2019-03-18 19:00] VITALS: BP 110/64
--- NOTE | 2019-03-18 20:45 | PN ---
DATE: 03/18/2019 SUBJECTIVE: The patient is resting slightly propped up in bed, awake, alert, continued to complain of severe pain with every movement of her lumbar spine. Dr. Stacy is hesitant to proceed with a decompressive laminectomy given her significant spondylolisthesis and she was seen by Dr. Ureña who injected her right trochanteric bursitis as well as right sacroiliac joint without much improvement. Dr. Levi Prado was consulted for another lumbar spinal steroid injection, although this unlikely to happen today. PHYSICAL EXAMINATION: GENERAL: When I examined her this morning, she looked pale. No jaundice, cyanosis, or thyromegaly. No jugular venous distension. No lower limb edema. VITAL SIGNS: Her heart rate was 98, blood pressure was 140/86, temperature was 97.8, respiratory rate was 18 and oxygen saturation was 98%. HEAD, EYES, EARS, NOSE AND THROAT: Showed normocephalic, atraumatic. NECK: Supple. HEART: Showed normal first and second heart sounds. No gallop, rub or murmur. CHEST: Clear to auscultation. No crepitation or rhonchi. ABDOMEN: Distended, soft. NEUROLOGIC: She is awake, alert. All her cranial nerves intact. She moves all her extremities without difficulty. She continued to have severe pain with slightest movement in change in position. Her intake and output were incompletely recorded. LABORATORY WORK: As of yesterday showed a hemoglobin of 10, hematocrit 29 with normal white cell count and platelets. Her BUN is 25, creatinine 1.2 with normal electrolytes. ASSESSMENT: 1. This is an 83-year-old female patient with multilevel stenosis in both central canal and foramina and severe lumbar scoliosis. 2. The patient continued to have severe pain with slightest movement. Fortunately, she is not deemed a good surgical candidate for extensive lumbar surgery. 3. She has multiple other medical problems including: A. Hypertension. B. Hyperlipidemia. C. Gastroesophageal reflux disease. D. Depression. E. History of breast cancer with chemotherapy-induced peripheral neuropathy. PLAN: To continue with the current medication. She is bed bound and therefore, I will start her on Lovenox for DVT prophylaxis. We will monitor her labs closely and obviously await the evaluation by the chest painting leader. NEREIDA REID MD DR: LOLLY/bj JOB#: [id number] / [id number]
[2019-03-18] MEDS: LATANOPROST 0.005% OPHTH SOLUTION 2.5ML BOTTLE. OU SCH (21:30)
[2019-03-18] MEDS: ATORVASTATIN CALCIUM 10 MG TABLET. PO SCH (21:31)
[2019-03-18 23:00] VITALS: BP 125/63
[2019-03-19 03:00] VITALS: BP 128/69
[2019-03-19 07:00] VITALS: BP 148/75
[2019-03-19 07:46] LABS: CALCIUM 9.2 mg/dL (8.5-10.1); CREATININE 1.3 mg/dL (0.6-1.0); GFR 39.1; POTASSIUM 4.8 mmol/L (3.5-5.1)
[2019-03-19] MEDS: FERROUS SULFATE 325 MG TABLET. PO SCH (08:34)
[2019-03-19] MEDS: POTASSIUM CHLORIDE 20 MEQ TABLET.ER. PO SCH (08:34)
[2019-03-19] MEDS: VENLAFAXINE 75 MG TABLET. PO SCH ×3 (08:35→21:10)
[2019-03-19] MEDS: LACTOBACILLUS RHAMNOSUS GG 1 CAPSULE. PO SCH ×2 (08:35→21:10)
[2019-03-19] MEDS: CALCIUM CARB/VIT D3 500/200 TABLET. PO SCH (08:35)
[2019-03-19] MEDS: FAMOTIDINE 20 MG TABLET. PO SCH (08:35)
[2019-03-19] MEDS: MULTIVITAMIN with MINERAL TABLET. PO SCH (08:35)
[2019-03-19] MEDS: ASPIRIN CHEWABLE 81 MG TABLET. PO SCH (08:35)
[2019-03-19] MEDS: DOCUSATE SODIUM 100 MG CAPSULE. PO SCH ×2 (08:35→21:10)
[2019-03-19] MEDS: LISINOPRIL 20 MG TABLET PO SCH (08:36)
[2019-03-19] MEDS: FLUoxetine HCL 10 MG CAPSULE PO SCH (08:36)
[2019-03-19] MEDS: CARVEDILOL 3.125 MG TABLET. PO SCH ×2 (08:37→17:08)
[2019-03-19] MEDS: ACETAMINOPHEN/CODEINE 300/30MG TABLET. PO SCH ×2 (08:37→21:09)
[2019-03-19 10:43] VITALS: BP 115/61
--- NOTE | 2019-03-19 11:16 | PDOC ---
PROGRESS NOTES Subjective Subjective She admits continued low back pain with mobility. Objective Objective Vital Signs Date Time Temp Pulse Resp B/P (MAP) Pulse Ox O2 Delivery O2 Flow Rate FiO2 03/19/19 10:43 97.7 100 18 115/61 (79) 95 Room Air 97.7 Intake and Output 03/19/19 06:59 Intake Total 450 ml Output Total 0 ml Balance 450 ml Intake Oral 450 ml Output Urine Total 0 ml # Voids 5 Physical Exam Physical Exam She is awake and comfortable,supine in bed and afraid of getting up. Plan Plan of Care To get her up as tolerated and waiting for pain clinic for another trial at lumbar epidural steroid injection. Comment Review of Relevant I have reviewed the following items ingrid (where applicable) has been applied. Labs Laboratory Tests Test 03/19/19 07:05 Sodium Level 139 mmol/L (136-145) Potassium Level 4.8 mmol/L (3.5-5.1) Chloride Level 105 mmol/L (98-107) Carbon Dioxide Level 27 mmol/L (21-32) Anion Gap 7 (6-14) Blood Urea Nitrogen 28 mg/dL (7-20) Creatinine 1.3 mg/dL (0.6-1.0) Estimated GFR (Cockcroft-Gault) 39.1 Glucose Level 104 mg/dL (70-99) Calcium Level 9.2 mg/dL (8.5-10.1) Laboratory Tests Test 03/19/19 07:05 Sodium Level 139 mmol/L (136-145) Potassium Level 4.8 mmol/L (3.5-5.1) Chloride Level 105 mmol/L (98-107) Carbon Dioxide Level 27 mmol/L (21-32) Anion Gap 7 (6-14) Blood Urea Nitrogen 28 mg/dL (7-20) Creatinine 1.3 mg/dL (0.6-1.0) Estimated GFR (Cockcroft-Gault) 39.1 Glucose Level 104 mg/dL (70-99) Calcium Level 9.2 mg/dL (8.5-10.1) Medications Current Medications Acetaminophen (Tylenol) 650 mg TID PO ; Start 03/14/19 at 21:00; Status Cancel Acetaminophen/ Codeine Phosphate (Tylenol #3) 1 tab BID PO Last administered on 03/19/19at 08:37; Start 03/14/19 at 21:00 Acetaminophen/ Codeine Phosphate (Tylenol #3) 1 tab PRN Q4HRS PRN PO MODERATE- SEVERE PAIN Last administered on 03/18/19 17:37; Start 03/14/19 at 16:30 Aspirin (Children'S Aspirin) 81 mg DAILY PO Last administered on 03/19/19 08:35; Start 03/15/19 at 09:00 Carvedilol (Coreg) 3.125 mg BIDWMEALS PO Last administered on 03/19/19 08:37; Start 03/14/19 at 17:00 Docusate Sodium (Colace) 100 mg BID PO Last administered on 03/19/19 08:35; Start 03/14/19 at 21:00 Ferrous Sulfate (Feosol) 325 mg DAILY PO Last administered on 03/19/19 08:34; Start 03/15/19 at 09:00 Fluoxetine HCl (PROzac) 10 mg DAILY PO Last administered on 03/19/19 08:36; Start 03/15/19 at 09:00 Lisinopril (Prinivil) 20 mg DAILY PO Last administered on 03/19/19 08:36; Start 03/15/19 at 09:00 Calcium/Vitamin D (Oscal D 500mg/ 200uts) 1 tab DAILYWBKFT PO Last administered on 03/19/19 08:35; Start 03/15/19 at 08:00 Latanoprost (Xalatan) 1 drop QHS OU Last administered on 03/18/19 21:30; Start 03/14/19 at 21:00 Multivitamins (Thera M Plus) 1 tab DAILY PO Last administered on 03/19/19 08:35; Start 03/15/19 at 09:00 Pantoprazole Sodium (Protonix) 40 mg DAILYAC PO Last administered on 03/15/19 09:34; Start 03/15/19 at 07:30; Stop 03/15/19 at 13:45; Status DC Potassium Chloride (Klor-Con) 20 meq DAILYWBKFT PO Last administered on 03/19/19 08:34; Start 03/15/19 at 08:00 Atorvastatin Calcium (Lipitor) 5 mg QHS PO Last administered on 03/18/19 21:31; Start 03/14/19 at 21:00 Venlafaxine HCl (Effexor) 75 mg TID PO Last administered on 03/19/19at 08:35; Start 03/14/19 at 21:00 Non-Formulary Medication (Venlafaxine Hcl (Effexor Xr)) 1 cap DAILY PO ; Start 03/15/19 at 09:00; Status UNV Acetaminophen (Tylenol) 650 mg PRN TID PRN PO MILD PAIN 1-3; Start 03/14/19 at 19:30 Pharmacy Consult (C.diff Med Screen By Rx) 1 each 1X ONCE [facility] ; Start 03/14/19 at 19:45; Stop 03/14/19 at 19:47; Status DC Lactobacillus Rhamnosus (Culturelle) 1 cap BID PO Last administered on 03/19/19at 08:35; Start 03/15/19 at 21:00 Famotidine (Pepcid) 20 mg DAILY PO Last administered on 03/19/19at 08:35; Start 03/15/19 at 14:00 Methylprednisolone Sodium Succinate (SOLU-Medrol 40MG VIAL) 40 mg 1X ONCE IV Last administered on 03/16/19at 16:45; Start 03/16/19 at 16:45; Stop 03/16/19 at 16:53; Status DC Methylprednisolone Sodium Succinate (SOLU-Medrol 40MG VIAL) 40 mg 1X ONCE IV Last administered on 03/16/19at 16:45; Start 03/16/19 at 16:45; Stop 03/16/19 at 16:53; Status DC Bupivacaine HCl (Sensorcaine-Mpf 0.25%) 10 ml 1X ONCE IJ Last administered on 03/16/19at 16:45; Start 03/16/19 at 16:45; Stop 03/16/19 at 16:53; Status DC Active Scripts Active Colace (Docusate Sodium) 100 Mg Capsule 100 Mg PO BID 30 Days Carvedilol (Carvedilol) 3.125 Mg Tablet 3.125 Mg PO BIDWMEALS 30 Days Lisinopril 40 Mg Tablet 20 Mg PO DAILY 30 Days Reported Tylenol (Acetaminophen) 325 Mg Tablet 2 Tab PO PRN TID PRN Tylenol With Codeine #3 Tablet (Acetaminophen/Codeine Phosphate) 1 Each Tablet 1 Tab PO PRN Q4HRS PRN Potassium Chloride 20 Meq Tablet.er 20 Meq PO DAILY Tylenol With Codeine #3 Tablet (Acetaminophen/Codeine Phosphate) 1 Each Tablet 1 Tab PO BID Xalatan (Latanoprost) 2.5 Ml Drops 1 Drop EACHEYE QHS Calcium 500 mg Chewable Tablet (Calcium Carbonate/Vitamin D3) 1 Each Tab.chew 1 Each PO DAILY Multivitamins (Multivitamin) 1 Each Tablet 1 Tab PO DAILY Ferrous Sulfate 325 Mg Tablet 1 Tab PO DAILY Effexor Xr (Venlafaxine Hcl) 150 Mg Cap.er.24h 1 Cap PO DAILY Effexor Xr (Venlafaxine Hcl) 75 Mg Cap.er.24h 1 Cap PO DAILY Pravastatin Sodium 20 Mg Tablet 1 Tab PO HS Children's Aspirin (Aspirin) 81 Mg Tab.chew 81 Mg PO DAILY Protonix (Pantoprazole Sodium) 20 Mg Tablet.dr 2 Tab PO DAILY Fluoxetine Hcl 10 Mg Capsule 10 Mg PO DAILY Vitals/I & O Vital Sign - Last 24 Hours 03/18/19 03/18/19 03/18/19 03/18/19 15:00 16:39 17:37 18:37 Temp 98.0 98.0 Pulse 98 98 Resp 18 14 18 B/P (MAP) 138/82 (100) 138/82 Pulse Ox 98 98 98 O2 Delivery Room Air Room Air Room Air 03/18/19 03/18/19 03/18/19 03/18/19 19:00 20:00 21:31 23:00 Temp 98.8 98.2 98.8 98.2 Pulse 99 103 Resp 18 18 B/P (MAP) 110/64 (79) 125/63 (83) Pulse Ox 96 96 100 O2 Delivery Room Air Room Air Room Air Room Air 03/19/19 03/19/19 03/19/19 03/19/19 03:00 07:00 08:00 08:36 Temp 98.1 97.9 98.1 97.9 Pulse 95 101 101 Resp 17 18 B/P (MAP) 128/69 (88) 148/75 (99) 148/75 Pulse Ox 98 98 O2 Delivery Room Air Room Air Room Air 03/19/19 03/19/19 03/19/19 03/19/19 08:37 08:37 09:37 10:43 Temp 97.7 97.7 Pulse 101 100 Resp 16 14 18 B/P (MAP) 148/75 115/61 (79) Pulse Ox 98 98 95 O2 Delivery Room Air Room Air Room Air Intake and Output 03/18/19 03/18/19 03/19/19 14:59 22:59 06:59 Intake Total 250 ml 200 ml Output Total 0 ml Balance 250 ml 200 ml 0 ml OTILIA PISANO MD March 19, 2019 11:16
[2019-03-19 15:00] VITALS: BP 120/70
--- NOTE | 2019-03-19 17:13 | PN ---
DATE: 03/19/2019 SUBJECTIVE: The patient is resting slightly propped up in bed, in no apparent distress. She continued to have severe pain with any attempt to move or change her position in the bed, although, she felt that this morning her pain is slightly less than yesterday. She apparently slept well last night and has had her breakfast this morning. I explained to her that the surgeon is reluctant to do surgery given the extent of the operation that needed and that he would like to consider first spinal epidural steroid injection. Obviously, Dr. Sims is not here today. PHYSICAL EXAMINATION: GENERAL: When I examined her, she looked pale, somewhat cachectic, but no jaundice, cyanosis, or thyromegaly. No jugular venous distension. No limb edema. VITAL SIGNS: Her heart rate was 101, blood pressure was 148/75, temperature was 97.9, respiratory rate was 16, and oxygen saturation was 98%. The rest of clinical examination is stable, has not really changed. LABORATORY DATA: She has had no lab work done today. Her chemistry, however, showed a serum sodium 139, potassium 4.8, chloride 105, bicarbonate 27, anion gap 7, BUN 28, creatinine 1.3, estimated GFR was 39 mL per minute, her glucose 104, and calcium was 9.2. ASSESSMENT: 1. 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 2. The patient continued to have severe pain with slightest movement or attempt to change position; however, Dr. Stacy did not see that she is a good surgical candidate for extensive lumbar surgery. 3. She has multiple other medical problems including: A. Hypertension. B. Hyperlipidemia. C. Gastroesophageal reflux disease. D. Depression. E. History of breast cancer, treated with chemotherapy that induce severe peripheral neuropathy. PLAN: Continue with the current pain medication. Continue with DVT prophylaxis. Continue with pain management. Await the evaluation by roller painter. NEREIDA REID MD DR: LOLLY/bj JOB#: [id number] / [id number]
[2019-03-19 19:00] VITALS: BP 128/74
[2019-03-19] MEDS: LATANOPROST 0.005% OPHTH SOLUTION 2.5ML BOTTLE. OU SCH (21:10)
[2019-03-19] MEDS: ATORVASTATIN CALCIUM 10 MG TABLET. PO SCH (21:10)
[2019-03-19 22:55] VITALS: BP 116/68
[2019-03-20 03:00] VITALS: BP 117/73
[2019-03-20 07:00] VITALS: BP 134/71
[2019-03-20] MEDS: FLUoxetine HCL 10 MG CAPSULE PO SCH (08:33)
[2019-03-20] MEDS: FAMOTIDINE 20 MG TABLET. PO SCH (08:33)
[2019-03-20] MEDS: POTASSIUM CHLORIDE 20 MEQ TABLET.ER. PO SCH (08:33)
[2019-03-20] MEDS: DOCUSATE SODIUM 100 MG CAPSULE. PO SCH ×2 (08:33→21:05)
[2019-03-20] MEDS: VENLAFAXINE 75 MG TABLET. PO SCH ×3 (08:33→21:03)
[2019-03-20] MEDS: LACTOBACILLUS RHAMNOSUS GG 1 CAPSULE. PO SCH ×2 (08:33→21:05)
[2019-03-20] MEDS: FERROUS SULFATE 325 MG TABLET. PO SCH (08:33)
[2019-03-20] MEDS: CALCIUM CARB/VIT D3 500/200 TABLET. PO SCH (08:33)
[2019-03-20] MEDS: CARVEDILOL 3.125 MG TABLET. PO SCH ×2 (08:33→17:15)
[2019-03-20] MEDS: ASPIRIN CHEWABLE 81 MG TABLET. PO SCH (08:33)
[2019-03-20] MEDS: LISINOPRIL 20 MG TABLET PO SCH (08:34)
[2019-03-20] MEDS: MULTIVITAMIN with MINERAL TABLET. PO SCH (08:34)
[2019-03-20] MEDS: ACETAMINOPHEN/CODEINE 300/30MG TABLET. PO SCH ×2 (09:00→21:04)
--- NOTE | 2019-03-20 09:14 | PDOC ---
PROGRESS NOTES Subjective Subjective She feels better and wants another injection and asking how long it will help ease her pain. Objective Objective Vital Signs Date Time Temp Pulse Resp B/P (MAP) Pulse Ox O2 Delivery O2 Flow Rate FiO2 03/20/19 08:34 99 134/71 03/20/19 07:00 98.0 18 93 Room Air 98.0 Intake and Output 03/20/19 07:00 Intake Total 1140 ml Balance 1140 ml Intake Oral 1140 ml # Voids 2 # Bowel Movements 1 Physical Exam Physical Exam She is alert,supine in bed and continues with painfully limited lumbar spine ROM with tenderness to palpation over sacroiliac joints. She did not get up yet. Assessment Assessment To have to proceed with lumbar epidural steroid injection and to get her up as tolerated. Comment Review of Relevant I have reviewed the following items ingrid (where applicable) has been applied. Labs Laboratory Tests Test 03/19/19 07:05 Sodium Level 139 mmol/L (136-145) Potassium Level 4.8 mmol/L (3.5-5.1) Chloride Level 105 mmol/L (98-107) Carbon Dioxide Level 27 mmol/L (21-32) Anion Gap 7 (6-14) Blood Urea Nitrogen 28 mg/dL (7-20) Creatinine 1.3 mg/dL (0.6-1.0) Estimated GFR (Cockcroft-Gault) 39.1 Glucose Level 104 mg/dL (70-99) Calcium Level 9.2 mg/dL (8.5-10.1) Medications Current Medications Acetaminophen (Tylenol) 650 mg TID PO ; Start 03/14/19 at 21:00; Status Cancel Acetaminophen/ Codeine Phosphate (Tylenol #3) 1 tab BID PO Last administered on 03/19/19at 21:09; Start 03/14/19 at 21:00 Acetaminophen/ Codeine Phosphate (Tylenol #3) 1 tab PRN Q4HRS PRN PO MODERATE- SEVERE PAIN Last administered on 03/18/19at 17:37; Start 03/14/19 at 16:30 Aspirin (Children'S Aspirin) 81 mg DAILY PO Last administered on 03/20/19 08:33; Start 03/15/19 at 09:00 Carvedilol (Coreg) 3.125 mg BIDWMEALS PO Last administered on 5/28/19at 08:33; Start 03/14/19 at 17:00 Docusate Sodium (Colace) 100 mg BID PO Last administered on 03/20/19 08:33; Start 03/14/19 at 21:00 Ferrous Sulfate (Feosol) 325 mg DAILY PO Last administered on 03/20/19 08:33; Start 03/15/19 at 09:00 Fluoxetine HCl (PROzac) 10 mg DAILY PO Last administered on 03/20/19 08:33; Start 03/15/19 at 09:00 Lisinopril (Prinivil) 20 mg DAILY PO Last administered on 03/20/19 08:34; Start 03/15/19 at 09:00 Calcium/Vitamin D (Oscal D 500mg/ 200uts) 1 tab DAILYWBKFT PO Last administered on 03/20/19 08:33; Start 03/15/19 at 08:00 Latanoprost (Xalatan) 1 drop QHS OU Last administered on 03/19/19 21:10; Start 03/14/19 at 21:00 Multivitamins (Thera M Plus) 1 tab DAILY PO Last administered on 03/20/19 08:34; Start 03/15/19 at 09:00 Pantoprazole Sodium (Protonix) 40 mg DAILYAC PO Last administered on 03/15/19 09:34; Start 03/15/19 at 07:30; Stop 03/15/19 at 13:45; Status DC Potassium Chloride (Klor-Con) 20 meq DAILYWBKFT PO Last administered on 03/20/19 08:33; Start 03/15/19 at 08:00 Atorvastatin Calcium (Lipitor) 5 mg QHS PO Last administered on 03/19/19 21:10; Start 03/14/19 at 21:00 Venlafaxine HCl (Effexor) 75 mg TID PO Last administered on 03/20/19 08:33; Start 03/14/19 at 21:00 Non-Formulary Medication (Venlafaxine Hcl (Effexor Xr)) 1 cap DAILY PO ; Start 03/15/19 at 09:00; Status UNV Acetaminophen (Tylenol) 650 mg PRN TID PRN PO MILD PAIN 1-3; Start 03/14/19 at 19:30 Pharmacy Consult (C.diff Med Screen By Rx) 1 each 1X ONCE MC ; Start 03/14/19 at 19:45; Stop 03/14/19 at 19:47; Status DC Lactobacillus Rhamnosus (Culturelle) 1 cap BID PO Last administered on 03/20/19at 08:33; Start 03/15/19 at 21:00 Famotidine (Pepcid) 20 mg DAILY PO Last administered on 03/20/19at 08:33; Start 03/15/19 at 14:00 Methylprednisolone Sodium Succinate (SOLU-Medrol 40MG VIAL) 40 mg 1X ONCE IV Last administered on 03/16/19at 16:45; Start 03/16/19 at 16:45; Stop 03/16/19 at 16:53; Status DC Methylprednisolone Sodium Succinate (SOLU-Medrol 40MG VIAL) 40 mg 1X ONCE IV Last administered on 03/16/19at 16:45; Start 03/16/19 at 16:45; Stop 03/16/19 at 16:53; Status DC Bupivacaine HCl (Sensorcaine-Mpf 0.25%) 10 ml 1X ONCE IJ Last administered on 03/16/19at 16:45; Start 03/16/19 at 16:45; Stop 03/16/19 at 16:53; Status DC Active Scripts Active Colace (Docusate Sodium) 100 Mg Capsule 100 Mg PO BID 30 Days Carvedilol (Carvedilol) 3.125 Mg Tablet 3.125 Mg PO BIDWMEALS 30 Days Lisinopril 40 Mg Tablet 20 Mg PO DAILY 30 Days Reported Tylenol (Acetaminophen) 325 Mg Tablet 2 Tab PO PRN TID PRN Tylenol With Codeine #3 Tablet (Acetaminophen/Codeine Phosphate) 1 Each Tablet 1 Tab PO PRN Q4HRS PRN Potassium Chloride 20 Meq Tablet.er 20 Meq PO DAILY Tylenol With Codeine #3 Tablet (Acetaminophen/Codeine Phosphate) 1 Each Tablet 1 Tab PO BID Xalatan (Latanoprost) 2.5 Ml Drops 1 Drop EACHEYE QHS Calcium 500 mg Chewable Tablet (Calcium Carbonate/Vitamin D3) 1 Each Tab.chew 1 Each PO DAILY Multivitamins (Multivitamin) 1 Each Tablet 1 Tab PO DAILY Ferrous Sulfate 325 Mg Tablet 1 Tab PO DAILY Effexor Xr (Venlafaxine Hcl) 150 Mg Cap.er.24h 1 Cap PO DAILY Effexor Xr (Venlafaxine Hcl) 75 Mg Cap.er.24h 1 Cap PO DAILY Pravastatin Sodium 20 Mg Tablet 1 Tab PO HS Children's Aspirin (Aspirin) 81 Mg Tab.chew 81 Mg PO DAILY Protonix (Pantoprazole Sodium) 20 Mg Tablet.dr 2 Tab PO DAILY Fluoxetine Hcl 10 Mg Capsule 10 Mg PO DAILY Vitals/I & O Vital Sign - Last 24 Hours 03/19/19 03/19/19 03/19/19 03/19/19 10:43 15:00 17:08 19:00 Temp 97.7 97.8 97.7 97.7 97.8 97.7 Pulse 100 100 100 100 Resp 18 B/P (MAP) 115/61 (79) 120/70 (87) 120/70 128/74 (92) Pulse Ox 95 95 95 O2 Delivery Room Air Room Air Room Air 03/19/19 03/19/19 03/19/19 03/19/19 20:12 21:09 22:37 22:55 Temp 98.1 98.1 Pulse 100 Resp 18 B/P (MAP) 116/68 (84) Pulse Ox 95 95 97 O2 Delivery Room Air Room Air Room Air Room Air 03/20/19 03/20/19 03/20/19 03/20/19 03:00 07:00 08:33 08:34 Temp 98.3 98.0 98.3 98.0 Pulse 100 99 99 99 Resp B/P (MAP) 117/73 (88) 134/71 (92) 134/71 134/71 Pulse Ox 97 93 O2 Delivery Nasal Cannula Room Air Intake and Output 03/19/19 03/19/19 03/20/19 15:00 23:00 07:00 Intake Total 600 ml 420 ml 120 ml Balance 600 ml 420 ml 120 ml OTILIA PISANO MD March 20, 2019 09:14
[2019-03-20 11:00] VITALS: BP 132/75
[2019-03-20] MEDS ORDERED: methylPREDNISolone ACETATE 40 MG/ML VIAL. ONE (12:00)
[2019-03-20] MEDS ORDERED: methylPREDNISolone ACETATE 80 MG/ML VIAL. ONE (12:00)
[2019-03-20] MEDS ORDERED: IOHEXOL 180 MG/ML 10 ML VIAL. ONE (12:00)
--- NOTE | 2019-03-20 12:54 | PDOC ---
SUBJECTIVE Subjective Low back and right leg pain after fall OBJECTIVE Objective 83yo female C/O low back and right leg pain after fall at living facility Vital Signs Vital Signs Date Time Temp Pulse Resp B/P (MAP) Pulse Ox O2 Delivery O2 Flow Rate FiO2 03/20/19 11:00 98.6 99 18 132/75 (94) 99 Room Air 98.6 03/20/19 08:34 99 134/71 03/20/19 08:33 99 134/71 03/20/19 08:00 Room Air 03/20/19 07:00 98.0 99 18 134/71 (92) 93 Room Air 98.0 03/20/19 03:00 98.3 100 18 117/73 (88) 97 Nasal Cannula 98.3 03/19/19 22:55 98.1 100 18 116/68 (84) 97 Room Air 98.1 03/19/19 22:37 18 95 Room Air 03/19/19 21:09 18 95 Room Air 03/19/19 20:12 Room Air 03/19/19 19:00 97.7 100 18 128/74 (92) 95 Room Air 97.7 03/19/19 17:08 100 120/70 03/19/19 15:00 97.8 100 18 120/70 (87) 95 Room Air 97.8 I & O Intake and Output 03/20/19 07:00 Intake Total 1140 ml Balance 1140 ml Intake Oral 1140 ml # Voids 2 # Bowel Movements 1 PHYSICAL EXAM Physical Exam A&O, NCAT,BS=bilat,S1S2 clear Back- tender lumbar paraspinous bilat throughout LE's 1+ DTR's bilat, motor 4/5 and equal, +SLR rt ASSESSMENT/PLAN Assessment/Plan PLAN: options, risks discussed with pt. plan- LESI today F/U as OP TANIA OBREGON MD March 20, 2019 12:54
[2019-03-20 14:59] VITALS: BP 140/72
[2019-03-20 19:00] VITALS: BP 132/67
[2019-03-20] MEDS: LATANOPROST 0.005% OPHTH SOLUTION 2.5ML BOTTLE. OU SCH (21:03)
[2019-03-20] MEDS: ATORVASTATIN CALCIUM 10 MG TABLET. PO SCH (21:03)
[2019-03-20 23:00] VITALS: BP_SYST 144; BP_SYST 148; BP_DIAS 77; BP_DIAS 85
--- NOTE | 2019-03-20 23:34 | PN ---
DATE: 03/20/2019 SUBJECTIVE: The patient is resting, slightly propped up in bed, no apparent distress, awake, alert, stating that she generally feeling better. She is scheduled for a spinal epidural steroid injection by Dr. Levi Prado. PHYSICAL EXAMINATION: GENERAL: When I examined her, she was somewhat pale, but no jaundice, cyanosis, or thyromegaly. No jugular venous distention. No lower limb edema. VITAL SIGNS: Her heart rate was 99, blood pressure 134/71, temperature was 98, respiratory rate 18, and oxygen saturation was 93%. The rest of clinical examination is stable, has not really changed. Her intake and output are incompletely recorded. LABORATORY DATA: As of yesterday, her BUN is 28, creatinine 1.3. Her hemoglobin 10, hematocrit 29 with normal white cell count and platelets. ASSESSMENT: 1. 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 2. The patient continued to have severe pain with slightest movement or attempt to change position; however, Dr. Stacy did not feel that she is a good candidate for any surgical intervention for extensive lumbar surgery. 3. Dr. Ureña injected her trochanteric bursa as well as sacroiliac joint with some improvement. 4. She is scheduled for spinal epidural steroid injection by the pain management team. 5. She has multiple other medical problems including: a. Hypertension. b. Hyperlipidemia. c. Gastroesophageal reflux disease. d. Depression. e. History of breast cancer treated with chemotherapy. f. Severe peripheral neuropathy. PLAN: Continue with DVT prophylaxis. Continue with pain management. We will start physical and occupational therapy as soon as possible, she has had her injection today. We will probably have to arrange for her to go back to [facility] for further rehabilitation. NEREIDA REID MD DR: LOLLY/bj JOB#: [id number] / [id number]
[2019-03-21] MEDS: ACETAMINOPHEN/CODEINE 300/30MG TABLET. PO PRN ×2 (02:55→13:57)
[2019-03-21 03:00] VITALS: BP 136/76
[2019-03-21 07:00] VITALS: BP 155/79
[2019-03-21 07:57] LABS: HEMATOCRIT 31.6 % (36.0-47.0); RED BLOOD COUNT 3.29 x10^6/uL (3.50-5.40); WHITE BLOOD COUNT 12.6 x10^3/uL (4.0-11.0)
[2019-03-21] MEDS: POTASSIUM CHLORIDE 20 MEQ TABLET.ER. PO SCH (08:00)
[2019-03-21 08:26] LABS: ALBUMIN 3.1 g/dL (3.4-5.0); ALBUMIN/GLOBULIN RATIO 0.7 (1.0-1.7); TOTAL PROTEIN 7.3 g/dL (6.4-8.2)
[2019-03-21 08:27] LABS: CALCIUM 9.2 mg/dL (8.5-10.1); CREATININE 1.4 mg/dL (0.6-1.0); GFR 35.9; POTASSIUM 5.3 mmol/L (3.5-5.1); TOTAL BILIRUBIN 0.2 mg/dL (0.2-1.0)
[2019-03-21] MEDS: CARVEDILOL 3.125 MG TABLET. PO SCH ×2 (08:55→17:24)
[2019-03-21] MEDS: DOCUSATE SODIUM 100 MG CAPSULE. PO SCH (09:08)
[2019-03-21] MEDS: ASPIRIN CHEWABLE 81 MG TABLET. PO SCH (09:08)
[2019-03-21] MEDS: CALCIUM CARB/VIT D3 500/200 TABLET. PO SCH (09:08)
[2019-03-21] MEDS: LACTOBACILLUS RHAMNOSUS GG 1 CAPSULE. PO SCH (09:08)
[2019-03-21] MEDS: FAMOTIDINE 20 MG TABLET. PO SCH (09:09)
[2019-03-21] MEDS: FERROUS SULFATE 325 MG TABLET. PO SCH (09:09)
[2019-03-21] MEDS: VENLAFAXINE 75 MG TABLET. PO SCH ×2 (09:09→13:57)
[2019-03-21] MEDS: LISINOPRIL 20 MG TABLET PO SCH (09:10)
[2019-03-21] MEDS: MULTIVITAMIN with MINERAL TABLET. PO SCH (09:10)
[2019-03-21] MEDS: FLUoxetine HCL 10 MG CAPSULE PO SCH (09:10)
[2019-03-21] MEDS: ACETAMINOPHEN/CODEINE 300/30MG TABLET. PO SCH (09:11)
[2019-03-21 11:00] VITALS: BP 134/78
--- NOTE | 2019-03-21 12:25 | PDOC ---
PROGRESS NOTES Subjective Subjective She admits continued back pain with mobility. Objective Objective Vital Signs Date Time Temp Pulse Resp B/P (MAP) Pulse Ox O2 Delivery O2 Flow Rate FiO2 03/21/19 11:00 98.0 96 18 134/78 (96) 98 Room Air 98.0 Intake and Output 03/21/19 07:00 Intake Total 1020 ml Balance 1020 ml Intake Oral 1020 ml # Voids 2 # Bowel Movements 1 Physical Exam Physical Exam She is alert and continues with significant pain in coming to a sitting position despite having abdominal binder as lumbar support. Plan Plan of Care To check with about proceeding with surgery as conservative efforts are not much of any helping easing her pain with movement. Comment Review of Relevant I have reviewed the following items ingrid (where applicable) has been applied. Labs Laboratory Tests Test 03/21/19 07:10 White Blood Count 12.6 x10^3/uL (4.0-11.0) Red Blood Count 3.29 x10^6/uL (3.50-5.40) Hemoglobin 10.0 g/dL (12.0-15.5) Hematocrit 31.6 % (36.0-47.0) Mean Corpuscular Volume 96 fL (79-100) Mean Corpuscular Hemoglobin 31 pg (25-35) Mean Corpuscular Hemoglobin Concent 32 g/dL (31-37) Red Cell Distribution Width 14.0 % (11.5-14.5) Platelet Count 375 x10^3/uL (140-400) Sodium Level 139 mmol/L (136-145) Potassium Level 5.3 mmol/L (3.5-5.1) Chloride Level 104 mmol/L (98-107) Carbon Dioxide Level 26 mmol/L (21-32) Anion Gap 9 (6-14) Blood Urea Nitrogen 35 mg/dL (7-20) Creatinine 1.4 mg/dL (0.6-1.0) Estimated GFR (Cockcroft-Gault) 35.9 BUN/Creatinine Ratio 25 (6-20) Glucose Level 117 mg/dL (70-99) Calcium Level 9.2 mg/dL (8.5-10.1) Total Bilirubin 0.2 mg/dL (0.2-1.0) Aspartate Amino Transf (AST/SGOT) 20 U/L (15-37) Alanine Aminotransferase (ALT/SGPT) 21 U/L (14-59) Alkaline Phosphatase 59 U/L (46-116) Total Protein 7.3 g/dL (6.4-8.2) Albumin 3.1 g/dL (3.4-5.0) Albumin/Globulin Ratio 0.7 (1.0-1.7) Laboratory Tests Test 03/21/19 07:10 White Blood Count 12.6 x10^3/uL (4.0-11.0) Red Blood Count 3.29 x10^6/uL (3.50-5.40) Hemoglobin 10.0 g/dL (12.0-15.5) Hematocrit 31.6 % (36.0-47.0) Mean Corpuscular Volume 96 fL (79-100) Mean Corpuscular Hemoglobin 31 pg (25-35) Mean Corpuscular Hemoglobin Concent 32 g/dL (31-37) Red Cell Distribution Width 14.0 % (11.5-14.5) Platelet Count 375 x10^3/uL (140-400) Sodium Level 139 mmol/L (136-145) Potassium Level 5.3 mmol/L (3.5-5.1) Chloride Level 104 mmol/L (98-107) Carbon Dioxide Level 26 mmol/L (21-32) Anion Gap 9 (6-14) Blood Urea Nitrogen 35 mg/dL (7-20) Creatinine 1.4 mg/dL (0.6-1.0) Estimated GFR (Cockcroft-Gault) 35.9 BUN/Creatinine Ratio 25 (6-20) Glucose Level 117 mg/dL (70-99) Calcium Level 9.2 mg/dL (8.5-10.1) Total Bilirubin 0.2 mg/dL (0.2-1.0) Aspartate Amino Transf (AST/SGOT) 20 U/L (15-37) Alanine Aminotransferase (ALT/SGPT) 21 U/L (14-59) Alkaline Phosphatase 59 U/L (46-116) Total Protein 7.3 g/dL (6.4-8.2) Albumin 3.1 g/dL (3.4-5.0) Albumin/Globulin Ratio 0.7 (1.0-1.7) Medications Current Medications Acetaminophen (Tylenol) 650 mg TID PO ; Start 03/14/19 at 21:00; Status Cancel Acetaminophen/ Codeine Phosphate (Tylenol #3) 1 tab BID PO Last administered on 03/21/19 09:11; Start 03/14/19 at 21:00 Acetaminophen/ Codeine Phosphate (Tylenol #3) 1 tab PRN Q4HRS PRN PO MODERATE- SEVERE PAIN Last administered on 03/21/19 02:55; Start 03/14/19 at 16:30 Aspirin (Children'S Aspirin) 81 mg DAILY PO Last administered on 03/21/19 09: 08; Start 03/15/19 at 09:00 Carvedilol (Coreg) 3.125 mg BIDWMEALS PO Last administered on 03/21/19 08:55; Start 03/14/19 at 17:00 Docusate Sodium (Colace) 100 mg BID PO Last administered on 03/21/19 09:08; Start 03/14/19 at 21:00 Ferrous Sulfate (Feosol) 325 mg DAILY PO Last administered on 03/21/19 09:09; Start 03/15/19 at 09:00 Fluoxetine HCl (PROzac) 10 mg DAILY PO Last administered on 03/21/19 09:10; Start 03/15/19 at 09:00 Lisinopril (Prinivil) 20 mg DAILY PO Last administered on 03/21/19 09:10; Start 03/15/19 at 09:00 Calcium/Vitamin D (Oscal D 500mg/ 200uts) 1 tab DAILYWBKFT PO Last administered on 03/21/19 09:08; Start 03/15/19 at 08:00 Latanoprost (Xalatan) 1 drop QHS OU Last administered on 03/20/19 21:03; Start 03/14/19 at 21:00 Multivitamins (Thera M Plus) 1 tab DAILY PO Last administered on 03/21/19 09:10; Start 03/15/19 at 09:00 Pantoprazole Sodium (Protonix) 40 mg DAILYAC PO Last administered on 03/15/19 09:34; Start 03/15/19 at 07:30; Stop 03/15/19 at 13:45; Status DC Potassium Chloride (Klor-Con) 20 meq DAILYWBKFT PO Last administered on 03/20/19 08:33; Start 03/15/19 at 08:00 Atorvastatin Calcium (Lipitor) 5 mg QHS PO Last administered on 03/20/19 21:03; Start 03/14/19 at 21:00 Venlafaxine HCl (Effexor) 75 mg TID PO Last administered on 03/21/19 09:09; Start 03/14/19 at 21:00 Non-Formulary Medication (Venlafaxine Hcl (Effexor Xr)) 1 cap DAILY PO ; Start 03/15/19 at 09:00; Status UNV Acetaminophen (Tylenol) 650 mg PRN TID PRN PO MILD PAIN 1-3; Start 03/14/19 at 19:30 Pharmacy Consult (C.diff Med Screen By Rx) 1 each 1X ONCE MC ; Start 03/14/19 at 19:45; Stop 03/14/19 at 19:47; Status DC Lactobacillus Rhamnosus (Culturelle) 1 cap BID PO Last administered on 03/21/19 09:08; Start 03/15/19 at 21:00 Famotidine (Pepcid) 20 mg DAILY PO Last administered on 03/21/19 09:09; Start 03/15/19 at 14:00 Methylprednisolone Sodium Succinate (SOLU-Medrol 40MG VIAL) 40 mg 1X ONCE IV Last administered on 03/16/19 16:45; Start 03/16/19 at 16:45; Stop 03/16/19 at 16:53; Status DC Methylprednisolone Sodium Succinate (SOLU-Medrol 40MG VIAL) 40 mg 1X ONCE IV Last administered on 03/16/19 16:45; Start 03/16/19 at 16:45; Stop 03/16/19 at 16:53; Status DC Bupivacaine HCl (Sensorcaine-Mpf 0.25%) 10 ml 1X ONCE IJ Last administered on 03/16/19 16:45; Start 03/16/19 at 16:45; Stop 03/16/19 at 16:53; Status DC Methylprednisolone Acetate (DEPO-Medrol 40MG VIAL) 40 mg STK-MED ONCE .ROUTE ; Start 03/20/19 at 12:00; Stop 03/20/19 at 12:01; Status DC Iohexol (Omnipaque 180 Mg/ml) 10 ml STK-MED ONCE .ROUTE ; Start 03/20/19 at 12:00; Stop 03/20/19 at 12:01; Status DC Methylprednisolone Acetate (DEPO-Medrol 80MG VIAL) 80 mg STK-MED ONCE .ROUTE ; Start 03/20/19 at 12:00; Stop 03/20/19 at 12:01; Status DC Active Scripts Active Colace (Docusate Sodium) 100 Mg Capsule 100 Mg PO BID 30 Days Carvedilol (Carvedilol) 3.125 Mg Tablet 3.125 Mg PO BIDWMEALS 30 Days Lisinopril 40 Mg Tablet 20 Mg PO DAILY 30 Days Reported Tylenol (Acetaminophen) 325 Mg Tablet 2 Tab PO PRN TID PRN Tylenol With Codeine #3 Tablet (Acetaminophen/Codeine Phosphate) 1 Each Tablet 1 Tab PO PRN Q4HRS PRN Potassium Chloride 20 Meq Tablet.er 20 Meq PO DAILY Tylenol With Codeine #3 Tablet (Acetaminophen/Codeine Phosphate) 1 Each Tablet 1 Tab PO BID Xalatan (Latanoprost) 2.5 Ml Drops 1 Drop EACHEYE QHS Calcium 500 mg Chewable Tablet (Calcium Carbonate/Vitamin D3) 1 Each Tab.chew 1 Each PO DAILY Multivitamins (Multivitamin) 1 Each Tablet 1 Tab PO DAILY Ferrous Sulfate 325 Mg Tablet 1 Tab PO DAILY Effexor Xr (Venlafaxine Hcl) 150 Mg Cap.er.24h 1 Cap PO DAILY Effexor Xr (Venlafaxine Hcl) 75 Mg Cap.er.24h 1 Cap PO DAILY Pravastatin Sodium 20 Mg Tablet 1 Tab PO HS Children's Aspirin (Aspirin) 81 Mg Tab.chew 81 Mg PO DAILY Protonix (Pantoprazole Sodium) 20 Mg Tablet.dr 2 Tab PO DAILY Fluoxetine Hcl 10 Mg Capsule 10 Mg PO DAILY Vitals/I & O Vital Sign - Last 24 Hours 03/20/19 03/20/19 03/20/19 03/20/19 14:59 17:15 19:00 20:00 Temp 98.2 99.0 98.2 99.0 Pulse 95 95 97 Resp 18 18 B/P (MAP) 140/72 (94) 140/72 132/67 (88) Pulse Ox 99 96 O2 Delivery Room Air Room Air Room Air 03/20/19 03/20/19 03/21/19 03/21/19 21:04 23:00 02:55 03:00 Temp 98.6 98.0 98.6 98.0 Pulse 101 94 Resp 18 18 18 18 B/P (MAP) 144/77 (99) 136/76 (96) Pulse Ox 96 96 96 97 O2 Delivery Room Air Room Air Room Air Room Air 03/21/19 03/21/19 03/21/19 03/21/19 03:55 07:00 08:00 08:55 Temp 97.9 97.9 Pulse 91 91 Resp 18 18 B/P (MAP) 155/79 (104) 155/79 Pulse Ox 97 98 O2 Delivery Room Air Room Air Room Air 03/21/19 03/21/19 03/21/19 03/21/19 09:10 09:11 10:11 11:00 Temp 98.0 98.0 Pulse 91 96 Resp 20 20 18 B/P (MAP) 155/79 134/78 (96) Pulse Ox 98 98 98 O2 Delivery Room Air Room Air Room Air Intake and Output 0 03/20/19 03/20/19 03/21/19 15:00 23:00 07:00 Intake Total 600 ml 300 ml 120 ml Balance 600 ml 300 ml 120 ml OTILIA PISANO MD March 21, 2019 12:25
--- NOTE | 2019-03-21 13:54 | NUR ---
Wound Care: Follow up wound care for St II PU to R heel. Previously intact blister is firm and stable eschar covered. Cleansed, pictured and measured for DC today. Painted with betadine, covered with foam for protection. No other open areas noted on visible skin. Pt declined to allow team to visualize backside d/t c/o pain. DC instructions detailed in discharge paperwork.
--- NOTE | 2019-03-21 14:24 | SNU/HH DC ---
DISCHARGE ORDERS DISCHARGE INFORMATION: DISCHARGE DATE: March 21, 2019 FINAL DIAGNOSIS Severe back pain Hypertension Hyperlipidemia peripheral neuropathy CONDITION ON DISCHARGE: Stable CODE STATUS: Code Status: Full INTERMEDIATE: SNF STAY <30 DAYS: Yes POST DISCHARGE ORDERS: ACTIVITY ORDERS: Resume previous activity, Other, see below WEIGHT BEARING STATUS: No restrictions, Non weight bearing DIET AFTER DISCHARGE: Cardiac WOUND/INCISION CARE: Ice to area for comfort, Keep wound elevated CHECKS AFTER DISCHARGE: CHECKS AFTER DISCHARGE: Check blood press - daily TREATMENT/EQUIPMENT ORDERS: ADAPTIVE EQUIPMENT NEEDED: [facility] Physical Therapy For: Evalulation/Treatment Occupational Therapy For: Evaluation/Treatment DISCHARGE MEDICATIONS: Home Meds Active Scripts Docusate Sodium (COLACE) 100 Mg Capsule, 100 MG PO BID for Constipation for 30 Days, #60 CAP Prov:MYCHAL ANAYA MD 12/25/18 Carvedilol (CARVEDILOL ) 3.125 Mg Tablet, 3.125 MG PO BIDWMEALS for HTN for 30 Days, #60 TAB Prov:MYCHAL ANAYA MD 12/25/18 Lisinopril (LISINOPRIL) 40 Mg Tablet, 20 MG PO DAILY for 30 Days, #15 TAB Prov:IVELISSE ISLAS MD 05/04/18 Reported Medications Acetaminophen (TYLENOL) 325 Mg Tablet, 2 TAB PO PRN TID PRN for PAIN, #30 TAB 03/14/19 Acetaminophen With Codeine (TYLENOL WITH CODEINE #3 TABLET) 1 Each Tablet, 1 TAB PO PRN Q4HRS PRN for PAIN, TAB 03/14/19 Potassium Chloride (POTASSIUM CHLORIDE) 20 Meq Tablet.er, 20 MEQ PO DAILY for supplement, TAB.SR 03/14/19 Acetaminophen With Codeine (TYLENOL WITH CODEINE #3 TABLET) 1 Each Tablet, 1 TAB PO BID for pain, TAB 03/14/19 Latanoprost (XALATAN) 2.5 Ml Drops, 1 DROP EACHEYE QHS for for eye pressure, #2.5 ML 6 Refills 03/14/19 Calcium Carbonate/Vitamin D3 (Calcium 500 mg Chewable Tablet) 1 Each Tab.chew, 1 EACH PO DAILY for supplement, TAB.CHEW 03/14/19 Multivitamin (MULTIVITAMINS) 1 Each Tablet, 1 TAB PO DAILY for supplement, #90 TAB 3 Refills 03/14/19 Ferrous Sulfate (FERROUS SULFATE) 325 Mg Tablet, 1 TAB PO DAILY for anemia, #30 TAB 3 Refills 03/14/19 Venlafaxine Hcl (EFFEXOR XR) 150 Mg Cap.er.24h, 1 CAP PO DAILY for depression, #30 CAP 1 Refill 03/14/19 Venlafaxine Hcl (EFFEXOR XR) 75 Mg Cap.er.24h, 1 CAP PO DAILY for depression, #30 CAP 1 Refill 03/14/19 Pravastatin Sodium (PRAVASTATIN SODIUM) 20 Mg Tablet, 1 TAB PO HS for HLD, #30 TAB 5 Refills 12/21/18 Aspirin (Children's Aspirin) 81 Mg Tab.chew, 81 MG PO DAILY for blood thinner, TAB.CHEW 05/03/18 Pantoprazole Sodium (PROTONIX) 20 Mg Tablet.dr, 2 TAB PO DAILY for GERD, #30 TAB 05/01/18 Fluoxetine Hcl (FLUOXETINE HCL) 10 Mg Capsule, 10 MG PO DAILY for depression 11/04/13 NEREIDA REID MD March 21, 2019 14:23
[2019-03-21 15:00] VITALS: BP 137/74
--- NOTE | 2019-03-21 15:47 | NUR ---
[facility] following pt. [facility] declined pt stating pt can follow up as OP and pt is agreeable. Orders faxed to [facility] and pt will transport via facility arranged stretcher between [phone]. Pt aware of plan and agreeable. [facility] left a voice mail to pt's family regarding dc plan. RN notified.
[2019-03-21 17:24] VITALS: BP 137/74
--- NOTE | 2019-03-21 19:14 | NUR ---
Report called to receiving nurse at [facility]. Awaiting ride was scheduled for [phone].
--- NOTE | 2019-03-21 19:24 | NUR ---
Pt dismissed to [facility] per [facility] cart at 192 with all belongings. Transfer orders sent with drivers.
== END 2019-03-21 19:25 | DRG 552 ==
LOC: 5 NORTH 15:17
PROVIDERS: ADMIT Internal Medicine; ATTEND Internal Medicine
PROC: 3E0U33Z Introduction of Anti-inflammatory into Joints, Percutaneous Approach (ICD-10-PCS; principal; 2019-03-16)
PROC: 3E0U3BZ Introduction of Anesthetic Agent into Joints, Percutaneous Approach (ICD-10-PCS; 2019-03-16)
DX: M48.061 Spinal stenosis, lumbar region without neurogenic claudication (principal); M48.02 Spinal stenosis, cervical region; M70.61 Trochanteric bursitis, right hip; M47.816 Spondylosis without myelopathy or radiculopathy, lumbar region; M41.9 Scoliosis, unspecified; K21.9 Gastro-esophageal reflux disease without esophagitis; I10 Essential (primary) hypertension; T45.1X5A Adverse effect of antineoplastic and immunosuppressive drugs, initial encounter; F32.9 Major depressive disorder, single episode, unspecified; E78.5 Hyperlipidemia, unspecified; G62.0 Drug-induced polyneuropathy; Z96.651 Presence of right artificial knee joint; M50.30 Other cervical disc degeneration, unspecified cervical region; G89.29 Other chronic pain; M75.01 Adhesive capsulitis of right shoulder; M19.011 Primary osteoarthritis, right shoulder; M17.12 Unilateral primary osteoarthritis, left knee; G62.9 Polyneuropathy, unspecified; M25.561 Pain in right knee; C50.919 Malignant neoplasm of unspecified site of unspecified female breast; M48.00 Spinal stenosis, site unspecified; Z85.3 Personal history of malignant neoplasm of breast; Z90.710 Acquired absence of both cervix and uterus; Z90.13 Acquired absence of bilateral breasts and nipples; Z88.0 Allergy status to penicillin; Z87.891 Personal history of nicotine dependence
CPT/HCPCS: 36415; 62323; 72148; 80048; 80053; 85025; 85027; 85610; 87641; J1030; J1040; J2920; J3490; Q9965; 97530; 97535